=== PATIENT | male | born 1990 | race Caucasian/White ===

== ENCOUNTER 2021-03-24 16:22 | Inpatient (IN) | payer OTHER ==
[~2021-03-24] VITALS: Ht 185.4 cm; Wt 113.6 kg
[2021-03-24] MEDS ORDERED: PROP10TA73 PO (17:17)
[2021-03-24] MEDS ORDERED: ALPR0.5T PO (17:17)
[2021-03-24] MEDS ORDERED: CLON-465 PO (17:17)
[2021-03-24 17:29] LABS: COVID AG,FIA SOURCE NASOPHARYNGEAL
[2021-03-24 17:32] LABS: BASOPHILS % (AUTO) 0.4 % (0.0-2.0); HEMATOCRIT 40.1 % (41-53); HEMOGLOBIN 13.3 g/dL (13.5-17.5); LYMPHOCYTES # (AUTO) 1.4 K/uL (1.0-4.8); LYMPHOCYTES % (AUTO) 16.3 % (22.0-44.0); MEAN CORPUSCULAR HEMOGLOBIN 26.9 pg (26.0-34.0); MEAN CORPUSCULAR HGB CONC 33.3 G/dL (31.0-37.0); MEAN CORPUSCULAR VOLUME 81 fL (80-100); MONOCYTES # (AUTO) 0.7 K/uL (0.1-1.0); MONOCYTES % (AUTO) 7.9 % (2.0-9.0); NEUTROPHILS # (AUTO) 6.4 K/uL (1.8-7.7); NEUTROPHILS % (AUTO) 74.4 % (40.0-70.0); PLATELET COUNT (AUTO) 226 K/uL (150-450); RED BLOOD CELL COUNT(AUTO) 4.97 MIL/uL (4.50-5.90); RED CELL DISTRIBUTION WIDTH 16.2 % (11.5-14.5)
[2021-03-24 17:59] LABS: ANION GAP 10 mmol/L (8-16); CALCIUM, TOTAL 8.9 mg/dL (8.8-10.5); CARBON DIOXIDE 27 mmol/L (22-29); CHLORIDE 103 mmol/L (98-107); CREATININE 0.81 mg/dL (0.60-1.30); GLOMERULAR FILTR. RATE CALC > 60 mL/min (>60); GLUCOSE,RANDOM 116 mg/dL (70-110); POTASSIUM 3.8 mmol/L (3.5-5.1); SODIUM SERUM 140 mmol/L (136-145); UREA NITROGEN, BLOOD 9 mg/dL (7-18)
[2021-03-24] MEDS ORDERED: ZOLPIDEM TARTRATE 5 MG TABLET PO PRN (18:00)
[2021-03-24] MEDS ORDERED: MAGNESIUM HYDROXIDE SUSPENSION 30 ML UDCUP PO PRN (18:00)
[2021-03-24] MEDS ORDERED: ACETAMINOPHEN 325 MG TABLET PO PRN (18:00)
[2021-03-24] MEDS ORDERED: ONDANSETRON HCL 4 MG/2 ML VIAL IVP PRN (18:00)
[2021-03-24 18:04] LABS: ALANINE AMINOTRANSFERASE 38 U/L (12-78); ALBUMIN 3.4 g/dL (3.4-5.0); ALKALINE PHOSPHATASE 96 U/L (46-116); ASPARTATE AMINOTRANSFERASE 20 U/L (15-37); BILIRUBIN,TOTAL 0.5 mg/dL (0.1-1.0); TOTAL PROTEIN, SERUM 7.3 g/dL (6.4-8.2)
[2021-03-24 20:20] VITALS: BP 136/80
[2021-03-24] MEDS ORDERED: CLON0.3T PO (20:55)
[2021-03-24] MEDS ORDERED: ESCITALOPRAM OXALATE 10 MG TABLET PO SCH (21:00)
[2021-03-24] MEDS: LORazepam 2 MG TABLET PO PRN ×2 (21:18→23:23)
[2021-03-24 21:25] VITALS: BP 115/69
[2021-03-24 22:20] VITALS: BP 106/54
[2021-03-24 23:20] VITALS: BP 134/74
[2021-03-25 04:28] VITALS: BP 122/86
[2021-03-25] MEDS: LORazepam 2 MG TABLET PO PRN (06:14)
[2021-03-25] MEDS ORDERED: LORazepam 2 MG TABLET PO PRN (07:00)
[2021-03-25 08:15] VITALS: BP 148/93
[2021-03-25] MEDS ORDERED: LORazepam 2 MG TABLET PO SCH (09:00)
[2021-03-25 11:07] VITALS: BP 140/88
[2021-03-25] MEDS: CloNIDine HCL 0.1 MG TABLET PO SCH ×2 (11:35→20:34)
[2021-03-25 14:33] LABS: AMPHET/METH SCREEN,URINE NEGATIVE (NEGATIVE); BARBITURATE SCREEN, URINE NEGATIVE (NEGATIVE); BENZODIAZEPINES SCREEN,URINE NEGATIVE (NEGATIVE); CANNABINOID SCREEN,URINE NEGATIVE (NEGATIVE); COCAINE SCREEN,URINE NEGATIVE (NEGATIVE); METHADONE SCREEN, URINE NEGATIVE (NEGATIVE); OPIATE SCREEN,URINE NEGATIVE (NEGATIVE)
[2021-03-25 14:35] LABS: PHENCYCLIDINE SCREEN,URINE NEGATIVE (NEGATIVE)
[2021-03-25] MEDS ORDERED: DENTURE ADHESIVE 68 GM CREAM DT PRN (15:00)
[2021-03-25 20:14] VITALS: BP 134/76
[2021-03-25 20:15] VITALS: BP 134/76
[2021-03-25] MEDS: PROPRANOLOL HCL 10 MG TABLET PO SCH (20:34)
[2021-03-26 00:21] VITALS: BP 131/74
[2021-03-26 04:45] VITALS: BP 124/79
[2021-03-26 06:36] VITALS: BP 124/79
[2021-03-26 07:52] VITALS: BP 132/81
[2021-03-26] MEDS: PROPRANOLOL HCL 10 MG TABLET PO SCH ×2 (08:16→20:35)
[2021-03-26] MEDS: CloNIDine HCL 0.1 MG TABLET PO SCH ×2 (08:17→20:35)
[2021-03-26] MEDS ORDERED: CLON0.1T2 PO (09:57)
[2021-03-26] MEDS ORDERED: ACET-2247 PO (09:57)
[2021-03-26] MEDS ORDERED: PROP10TA73 PO (09:57)
[2021-03-26] MEDS ORDERED: MOM30 PO (09:58)
[2021-03-26] MEDS ORDERED: ONDA-104 PO (09:58)
[2021-03-26 15:32] VITALS: BP 123/84
[2021-03-26 19:47] VITALS: BP 133/76
[2021-03-27 04:10] VITALS: BP 142/87
[2021-03-27] MEDS ORDERED: LORazepam 1 MG TABLET PO PRN (07:00)
[2021-03-27 07:20] VITALS: BP 131/80
[2021-03-27] MEDS ORDERED: LORazepam 1 MG TABLET PO SCH (09:00)
[2021-03-28] MEDS ORDERED: LORazepam 1 MG TABLET PO PRN (07:00)
== END 2021-03-27 07:35 | DRG 897 ==
LOC: EMS 16:25 → 5S 18:24 → 6S 18:33
PROVIDERS: ADMIT Internal Medicine; ATTEND Internal Medicine
DX: F13.139 Sedative, hypnotic or anxiolytic abuse with withdrawal, unspecified (principal); E66.9 Obesity, unspecified; F41.1 Generalized anxiety disorder; Z20.822 Contact with and (suspected) exposure to COVID-19; I10 Essential (primary) hypertension; Z90.49 Acquired absence of other specified parts of digestive tract; Z87.442 Personal history of urinary calculi; Z68.33 Body mass index [BMI] 33.0-33.9, adult
CPT/HCPCS: 80053; 85025; 99285; G0480

== ENCOUNTER 2021-03-28 12:06 | Inpatient (IN) | payer OTHER ==
[~2021-03-28] VITALS: Ht 185.4 cm; Wt 119.0 kg
[~2021-03-28 12:06] MED LIST: ACET-2247 PO; CLON0.1T2 PO; MOM30 PO; PROP10TA73 PO
[2021-03-28 12:40] LABS: BASOPHILS % (AUTO) 0.6 % (0.0-2.0); EOSINOPHILS % (AUTO) 0.4 % (1.0-6.0); HEMATOCRIT 42.7 % (41-53); HEMOGLOBIN 14.5 g/dL (13.5-17.5); LYMPHOCYTES # (AUTO) 1.4 K/uL (1.0-4.8); LYMPHOCYTES % (AUTO) 14.7 % (22.0-44.0); MEAN CORPUSCULAR HEMOGLOBIN 27.1 pg (26.0-34.0); MEAN CORPUSCULAR VOLUME 80 fL (80-100); MONOCYTES # (AUTO) 0.9 K/uL (0.1-1.0); MONOCYTES % (AUTO) 9.3 % (2.0-9.0); NEUTROPHILS # (AUTO) 7.2 K/uL (1.8-7.7); PLATELET COUNT (AUTO) 306 K/uL (150-450); RED BLOOD CELL COUNT(AUTO) 5.35 MIL/uL (4.50-5.90); RED CELL DISTRIBUTION WIDTH 16.5 % (11.5-14.5)
[2021-03-28 12:48] LABS: ANION GAP 6 mmol/L (8-16); CALCIUM, TOTAL 9.3 mg/dL (8.8-10.5); CARBON DIOXIDE 27 mmol/L (22-29); CHLORIDE 108 mmol/L (98-107); CREATININE 0.87 mg/dL (0.60-1.30); GLOMERULAR FILTR. RATE CALC > 60 mL/min (>60); GLUCOSE,RANDOM 99 mg/dL (70-110); POTASSIUM 4.3 mmol/L (3.5-5.1); SODIUM SERUM 141 mmol/L (136-145); UREA NITROGEN, BLOOD 13 mg/dL (7-18)
[2021-03-28 12:50] LABS: INR 1.1 (0.9-1.1); PROTHROMBIN TIME 11.2 SEC (9.4-11.6)
[2021-03-28 12:53] LABS: COVID AG,FIA SOURCE NASOPHARYNGEAL
[2021-03-28 12:54] LABS: ALANINE AMINOTRANSFERASE 42 U/L (12-78); ALBUMIN 3.9 g/dL (3.4-5.0); ALKALINE PHOSPHATASE 102 U/L (46-116); ASPARTATE AMINOTRANSFERASE 20 U/L (15-37); BILIRUBIN,TOTAL 0.3 mg/dL (0.1-1.0); CREATINE KINASE, TOTAL ONLY 32 U/L (39-308); TOTAL PROTEIN, SERUM 8.3 g/dL (6.4-8.2)
[2021-03-28 12:59] LABS: B-TYPE NATRIURETIC PEPTIDE < 5 pg/mL (0-100)
[2021-03-28] MEDS ORDERED: ONDANSETRON HCL 4 MG/2 ML VIAL IVP ONE (13:15)
[2021-03-28] MEDS ORDERED: MAGNESIUM HYDROXIDE SUSPENSION 30 ML UDCUP PO PRN (13:15)
[2021-03-28] MEDS ORDERED: ZOLPIDEM TARTRATE 5 MG TABLET PO PRN (13:15)
[2021-03-28] MEDS: ASPIRIN 81 MG CHEWABLE TABLET PO SCH (13:19)
[2021-03-28] MEDS ORDERED: METOPROLOL TARTRATE 50 MG TABLET PO ONE (14:00)
[2021-03-28 14:20] LABS: CHOLESTEROL 210 mg/dL (131-200); HDL CHOLESTEROL 42 mg/dL (40-60); LDL CHOL (CALC.) 142 mg/dL (0-130); LIPASE 23 U/L (73-393); TRIGLYCERIDES 132 mg/dL (15-150)
[2021-03-28] MEDS: PROPRANOLOL HCL 10 MG TABLET PO SCH ×2 (15:00→21:15)
[2021-03-28 15:56] VITALS: BP 122/84
[2021-03-28] MEDS: HEPARIN SODIUM,PORCINE 5,000 UNITS/ML VIAL SQ SCH (16:00)
[2021-03-28] MEDS: NITROGLYCERIN 0.4 MG SUBLINGUAL TABLET #25 SL PRN ×3 (16:40→17:09)
[2021-03-28 16:51] VITALS: BP 129/57
[2021-03-28] MEDS: ACETAMINOPHEN 325 MG TABLET PO PRN (18:55)
[2021-03-28 19:56] VITALS: BP 125/83
[2021-03-28] MEDS: CloNIDine HCL 0.1 MG TABLET PO SCH (21:00)
[2021-03-28] MEDS: TraMADol HCL 50 MG TABLET PO PRN (21:15)
[2021-03-29] VITALS (7 sets, daily range): BP systolic 101–144; BP diastolic 57–97
[2021-03-29] MEDS: HEPARIN SODIUM,PORCINE 5,000 UNITS/ML VIAL SQ SCH ×3 (00:13→15:05)
[2021-03-29] MEDS: ACETAMINOPHEN 325 MG TABLET PO PRN ×5 (00:14→23:17)
[2021-03-29] MEDS: CloNIDine HCL 0.1 MG TABLET PO SCH ×3 (00:17→20:42)
[2021-03-29] MEDS: ONDANSETRON HCL 4 MG/2 ML VIAL IVP PRN ×3 (04:18→20:42)
[2021-03-29] MEDS: TraMADol HCL 50 MG TABLET PO PRN ×2 (06:48→20:42)
[2021-03-29] MEDS: FAMOTIDINE 20 MG TABLET PO SCH (08:38)
[2021-03-29] MEDS: ASPIRIN 81 MG CHEWABLE TABLET PO SCH (08:38)
[2021-03-29] MEDS: PROPRANOLOL HCL 10 MG TABLET PO SCH (08:39)
[2021-03-29 11:14] LABS: APPEARANCE,URINE CLEAR (CLEAR); GLUCOSE, URINE (UA) NEGATIVE (NEGATIVE); KETONES,URINE TRACE mg/dL (NEGATIVE); LEUKOCYTE ESTERASE ,URINE NEGATIVE (NEGATIVE); NITRATE,URINE NEGATIVE (NEGATIVE); OCCULT BLOOD,URINE NEGATIVE (NEGATIVE); PH,URINE 5.5 (5.0-8.0); PROTEIN,URINE POS 1+ (NEGATIVE); UROBILINOGEN,URINE 0.2 mg/dL (<=1.0)
[2021-03-29 11:19] LABS: BILIRUBIN,URINE PRELIM. POSITIVE (NEGATIVE)
[2021-03-29 11:20] LABS: AMPHET/METH SCREEN,URINE NEGATIVE (NEGATIVE); BARBITURATE SCREEN, URINE NEGATIVE (NEGATIVE); BENZODIAZEPINES SCREEN,URINE NEGATIVE (NEGATIVE); CANNABINOID SCREEN,URINE NEGATIVE (NEGATIVE); COCAINE SCREEN,URINE NEGATIVE (NEGATIVE); METHADONE SCREEN, URINE NEGATIVE (NEGATIVE); OPIATE SCREEN,URINE NEGATIVE (NEGATIVE); PHENCYCLIDINE SCREEN,URINE NEGATIVE (NEGATIVE)
[2021-03-29 11:40] LABS: BACTERIA,URINE None Seen /HPF (None Seen); CALCIUM OXALATE CRYSTALS,UR Few /LPF (None Seen); RBC,URINE None Seen /HPF (0-2); SQUAMOUS EPITHELIAL CELL,UR Few /LPF (None Seen); WBC,URINE 0-2 /HPF (0-5); YEAST,URINE None Seen /HPF (None Seen)
[2021-03-29] MEDS ORDERED: DENTURE ADHESIVE 68 GM CREAM DT PRN (13:30)
[2021-03-29] MEDS: ATORVASTATIN CALCIUM 20 MG TABLET PO SCH (15:05)
[2021-03-29] MEDS: PROPRANOLOL HCL 20 MG TABLET PO SCH (20:42)
[2021-03-29] MEDS: NITROGLYCERIN 0.4 MG SUBLINGUAL TABLET #25 SL PRN ×3 (22:31→22:57)
[2021-03-30] VITALS (9 sets, daily range): BP systolic 93–156; BP diastolic 55–100
[2021-03-30] MEDS ORDERED: NITROGLYCERIN 2% (1 GM=INCH) PACKET TP ONE (00:15)
[2021-03-30] MEDS: HEPARIN SODIUM,PORCINE 5,000 UNITS/ML VIAL SQ SCH ×3 (00:42→15:32)
[2021-03-30] MEDS: TraMADol HCL 50 MG TABLET PO PRN ×3 (04:36→20:40)
[2021-03-30] MEDS: ONDANSETRON HCL 4 MG/2 ML VIAL IVP PRN ×2 (08:38→17:29)
[2021-03-30] MEDS: PROPRANOLOL HCL 20 MG TABLET PO SCH ×3 (08:38→20:40)
[2021-03-30] MEDS: ASPIRIN 81 MG CHEWABLE TABLET PO SCH (08:38)
[2021-03-30] MEDS: CloNIDine HCL 0.1 MG TABLET PO SCH ×3 (08:38→20:40)
[2021-03-30] MEDS: ATORVASTATIN CALCIUM 20 MG TABLET PO SCH (08:38)
[2021-03-30] MEDS: FAMOTIDINE 20 MG TABLET PO SCH (08:38)
[2021-03-30] MEDS: NITROGLYCERIN 0.4 MG SUBLINGUAL TABLET #25 SL PRN ×3 (15:23→15:46)
[2021-03-30] MEDS ORDERED: SODIUM CHLORIDE 0.9% 100 ML ONE (16:11)
[2021-03-30] MEDS ORDERED: IOHEXOL 350 MG/ML 75 ML VIAL ONE (16:11)
[2021-03-30] MEDS ORDERED: HEPARIN SODIUM,PORCINE 5,000 UNITS/ML VIAL IVP PRN ×2 (17:45)
[2021-03-30] MEDS ORDERED: HEPARIN SODIUM,PORCINE 5,000 UNITS/ML VIAL IVP ONE (18:00)
[2021-03-30 18:05] LABS: BASOPHILS % (AUTO) 0.6 % (0.0-2.0); EOSINOPHILS % (AUTO) 1.5 % (1.0-6.0); HEMATOCRIT 42.5 % (41-53); HEMOGLOBIN 14.4 g/dL (13.5-17.5); LYMPHOCYTES # (AUTO) 1.5 K/uL (1.0-4.8); LYMPHOCYTES % (AUTO) 16.7 % (22.0-44.0); MEAN CORPUSCULAR HEMOGLOBIN 27.1 pg (26.0-34.0); MEAN CORPUSCULAR HGB CONC 33.9 G/dL (31.0-37.0); MEAN CORPUSCULAR VOLUME 80 fL (80-100); MONOCYTES # (AUTO) 0.7 K/uL (0.1-1.0); MONOCYTES % (AUTO) 7.4 % (2.0-9.0); NEUTROPHILS # (AUTO) 6.6 K/uL (1.8-7.7); NEUTROPHILS % (AUTO) 73.8 % (40.0-70.0); PLATELET COUNT (AUTO) 298 K/uL (150-450); RED BLOOD CELL COUNT(AUTO) 5.31 MIL/uL (4.50-5.90); RED CELL DISTRIBUTION WIDTH 16.3 % (11.5-14.5)
[2021-03-30 18:14] LABS: PROTHROMBIN TIME 10.6 SEC (9.4-11.6)
[2021-03-30] MEDS: ACETAMINOPHEN 325 MG TABLET PO PRN (18:27)
[2021-03-30] MEDS: HEPARIN SODIUM 25000 UNITS/D5W 250 ML IV PRN (18:51)
[2021-03-31] VITALS (7 sets, daily range): BP systolic 98–129; BP diastolic 47–78
[2021-03-31] MEDS: TraMADol HCL 50 MG TABLET PO PRN ×2 (08:20→21:58)
[2021-03-31] MEDS: ATORVASTATIN CALCIUM 20 MG TABLET PO SCH (08:20)
[2021-03-31] MEDS: PROPRANOLOL HCL 20 MG TABLET PO SCH ×2 (08:20→20:35)
[2021-03-31] MEDS: CloNIDine HCL 0.1 MG TABLET PO SCH ×4 (08:20→20:36)
[2021-03-31] MEDS: FAMOTIDINE 20 MG TABLET PO SCH (08:20)
[2021-03-31] MEDS: ASPIRIN 81 MG CHEWABLE TABLET PO SCH (08:20)
[2021-03-31] MEDS: HEPARIN SODIUM 25000 UNITS/D5W 250 ML IV PRN (08:44)
[2021-03-31] MEDS: ONDANSETRON HCL 4 MG/2 ML VIAL IVP PRN (09:16)
[2021-03-31 09:33] LABS: BASOPHILS % (AUTO) 0.8 % (0.0-2.0); EOSINOPHILS % (AUTO) 1.6 % (1.0-6.0); HEMATOCRIT 40.4 % (41-53); HEMOGLOBIN 13.6 g/dL (13.5-17.5); LYMPHOCYTES # (AUTO) 1.5 K/uL (1.0-4.8); LYMPHOCYTES % (AUTO) 19.8 % (22.0-44.0); MEAN CORPUSCULAR HEMOGLOBIN 27.2 pg (26.0-34.0); MEAN CORPUSCULAR HGB CONC 33.7 G/dL (31.0-37.0); MEAN CORPUSCULAR VOLUME 81 fL (80-100); MONOCYTES # (AUTO) 0.6 K/uL (0.1-1.0); MONOCYTES % (AUTO) 7.8 % (2.0-9.0); NEUTROPHILS # (AUTO) 5.3 K/uL (1.8-7.7); PLATELET COUNT (AUTO) 258 K/uL (150-450); RED BLOOD CELL COUNT(AUTO) 5.01 MIL/uL (4.50-5.90); RED CELL DISTRIBUTION WIDTH 16.3 % (11.5-14.5)
[2021-03-31] MEDS: ACETAMINOPHEN 325 MG TABLET PO PRN ×2 (14:28→20:36)
[2021-03-31 19:11] LABS: BASOPHILS % (AUTO) 0.8 % (0.0-2.0); EOSINOPHILS % (AUTO) 1.5 % (1.0-6.0); HEMATOCRIT 42.8 % (41-53); HEMOGLOBIN 14.4 g/dL (13.5-17.5); LYMPHOCYTES # (AUTO) 2.2 K/uL (1.0-4.8); LYMPHOCYTES % (AUTO) 22.2 % (22.0-44.0); MEAN CORPUSCULAR HEMOGLOBIN 27.1 pg (26.0-34.0); MEAN CORPUSCULAR HGB CONC 33.7 G/dL (31.0-37.0); MEAN CORPUSCULAR VOLUME 81 fL (80-100); MONOCYTES # (AUTO) 0.8 K/uL (0.1-1.0); MONOCYTES % (AUTO) 8.1 % (2.0-9.0); NEUTROPHILS # (AUTO) 6.6 K/uL (1.8-7.7); NEUTROPHILS % (AUTO) 67.4 % (40.0-70.0); PLATELET COUNT (AUTO) 281 K/uL (150-450); RED BLOOD CELL COUNT(AUTO) 5.31 MIL/uL (4.50-5.90)
[2021-03-31 19:20] LABS: ANION GAP 5 mmol/L (8-16); CALCIUM, TOTAL 9.3 mg/dL (8.8-10.5); CARBON DIOXIDE 30 mmol/L (22-29); CHLORIDE 101 mmol/L (98-107); CREATININE 0.83 mg/dL (0.60-1.30); GLOMERULAR FILTR. RATE CALC > 60 mL/min (>60); GLUCOSE,RANDOM 100 mg/dL (70-110); POTASSIUM 4.6 mmol/L (3.5-5.1); SODIUM SERUM 136 mmol/L (136-145); UREA NITROGEN, BLOOD 10 mg/dL (7-18)
[2021-03-31 19:24] LABS: PROTHROMBIN TIME 11.1 SEC (9.4-11.6)
[2021-03-31 19:26] LABS: ALANINE AMINOTRANSFERASE 40 U/L (12-78); ALBUMIN 3.9 g/dL (3.4-5.0); ALKALINE PHOSPHATASE 92 U/L (46-116); ASPARTATE AMINOTRANSFERASE 29 U/L (15-37); BILIRUBIN,TOTAL 0.3 mg/dL (0.1-1.0)
[2021-04-01] VITALS (7 sets, daily range): BP systolic 96–143; BP diastolic 55–79
[2021-04-01 03:47] LABS: GLUCOMETER DEV NAME(LOC) 5N.1C; GLUCOSE,POINT OF CARE 104 MG/DL (70-110)
[2021-04-01] MEDS: HEPARIN SODIUM 25000 UNITS/D5W 250 ML IV PRN ×2 (04:24→18:16)
[2021-04-01] MEDS: ASPIRIN 81 MG CHEWABLE TABLET PO SCH (08:41)
[2021-04-01] MEDS: PROPRANOLOL HCL 20 MG TABLET PO SCH ×2 (08:41→21:33)
[2021-04-01] MEDS: FAMOTIDINE 20 MG TABLET PO SCH (08:41)
[2021-04-01] MEDS: ATORVASTATIN CALCIUM 20 MG TABLET PO SCH (08:41)
[2021-04-01] MEDS: CloNIDine HCL 0.1 MG TABLET PO SCH ×2 (08:41→21:33)
[2021-04-01] MEDS: TraMADol HCL 50 MG TABLET PO PRN ×2 (08:45→16:50)
[2021-04-01] MEDS ORDERED: IBUPROFEN 600 MG TABLET PO PRN (10:45)
[2021-04-01] MEDS ORDERED: KETOROLAC TROMETHAMINE 15 MG/ML VIAL IVP ONE (10:45)
[2021-04-01] MEDS: APIXABAN 5 MG TABLET PO SCH (21:33)
[2021-04-02] VITALS (7 sets, daily range): BP systolic 100–137; BP diastolic 58–90
[2021-04-02] MEDS: FAMOTIDINE 20 MG TABLET PO SCH (08:21)
[2021-04-02] MEDS: ATORVASTATIN CALCIUM 20 MG TABLET PO SCH (08:21)
[2021-04-02] MEDS: ASPIRIN 81 MG CHEWABLE TABLET PO SCH (08:21)
[2021-04-02] MEDS: APIXABAN 5 MG TABLET PO SCH ×2 (08:21→20:44)
[2021-04-02] MEDS: PROPRANOLOL HCL 20 MG TABLET PO SCH ×2 (08:21→20:44)
[2021-04-02] MEDS: TraMADol HCL 50 MG TABLET PO PRN ×2 (08:22→17:51)
[2021-04-02] MEDS: ONDANSETRON HCL 4 MG/2 ML VIAL IVP PRN ×2 (08:22→17:54)
[2021-04-02] MEDS: CloNIDine HCL 0.1 MG TABLET PO SCH ×2 (12:19→20:44)
[2021-04-03 03:35] VITALS: BP 114/74
[2021-04-03] MEDS: TraMADol HCL 50 MG TABLET PO PRN (03:46)
[2021-04-03 07:39] VITALS: BP 118/95
[2021-04-03] MEDS: FAMOTIDINE 20 MG TABLET PO SCH (08:36)
[2021-04-03] MEDS: ASPIRIN 81 MG CHEWABLE TABLET PO SCH (08:36)
[2021-04-03] MEDS: ATORVASTATIN CALCIUM 20 MG TABLET PO SCH (08:36)
[2021-04-03] MEDS: APIXABAN 5 MG TABLET PO SCH (08:36)
[2021-04-03] MEDS: PROPRANOLOL HCL 20 MG TABLET PO SCH (08:37)
[2021-04-03] MEDS: CloNIDine HCL 0.1 MG TABLET PO SCH (08:37)
[2021-04-03] MEDS: ONDANSETRON HCL 4 MG/2 ML VIAL IVP PRN (08:38)
[2021-04-03 08:45] VITALS: BP 137/81
[2021-04-03 11:27] VITALS: BP 121/64
[2021-04-03] MEDS ORDERED: APIX5TAB PO ×2 (14:43→14:45)
[2021-04-03] MEDS ORDERED: ATOR20TA86 PO (14:46)
[2021-04-03] MEDS ORDERED: ASPI-1450 PO (14:46)
[2021-04-03] MEDS ORDERED: PROP20TA18 PO (14:47)
[2021-04-08] MEDS ORDERED: APIXABAN 2.5 MG TABLET PO SCH (21:00)
[2021-04-09] MEDS ORDERED: APIXABAN 2.5 MG TABLET PO SCH (09:00)
== END 2021-04-03 15:30 | DRG 176 ==
LOC: EMS 13:06 → 5S 13:43
PROVIDERS: ADMIT Internal Medicine; ATTEND Internal Medicine
DX: I26.99 Other pulmonary embolism without acute cor pulmonale (principal); F13.139 Sedative, hypnotic or anxiolytic abuse with withdrawal, unspecified; F41.9 Anxiety disorder, unspecified; E66.9 Obesity, unspecified; E78.5 Hyperlipidemia, unspecified; F43.10 Post-traumatic stress disorder, unspecified; Z20.822 Contact with and (suspected) exposure to COVID-19; F19.10 Other psychoactive substance abuse, uncomplicated; Z68.34 Body mass index [BMI] 34.0-34.9, adult; Z87.442 Personal history of urinary calculi; Z87.891 Personal history of nicotine dependence; Z98.1 Arthrodesis status; I25.2 Old myocardial infarction; Z90.49 Acquired absence of other specified parts of digestive tract
CPT/HCPCS: 70496; 70551; 71045; 71275; 80053; 80061; 81001; 82550; 82962; 83690; 83880; 84484; 85025; 85610; 85730; 87081; 93005; 93306; 93970; 99285; A9575; J1644; J1885; J2405; J7050; 36415-L1; 36415-TC; 70450; 70450-TC; C9803

== ENCOUNTER 2021-08-03 20:08 | Inpatient (IN) | payer OTHER ==
[~2021-08-03] VITALS: Ht 185.4 cm; Wt 93.2 kg
[~2021-08-03 20:08] MED LIST changes: +APIX5TAB PO; +ASPI-1450 PO; +ATOR20TA86 PO; -PROP10TA73 PO; +PROP20TA18 PO
[2021-08-03 20:50] LABS: BASOPHILS % (AUTO) 0.6 % (0.0-2.0); EOSINOPHILS % (AUTO) 1.9 % (1.0-6.0); HEMATOCRIT 39.7 % (41-53); HEMOGLOBIN 13.6 g/dL (13.5-17.5); LYMPHOCYTES # (AUTO) 1.7 K/uL (1.0-4.8); MEAN CORPUSCULAR HEMOGLOBIN 28.1 pg (26.0-34.0); MEAN CORPUSCULAR HGB CONC 34.2 G/dL (31.0-37.0); MEAN CORPUSCULAR VOLUME 82 fL (80-100); MONOCYTES # (AUTO) 0.7 K/uL (0.1-1.0); MONOCYTES % (AUTO) 8.7 % (2.0-9.0); NEUTROPHILS # (AUTO) 5.6 K/uL (1.8-7.7); NEUTROPHILS % (AUTO) 67.8 % (40.0-70.0); PLATELET COUNT (AUTO) 240 K/uL (150-450); RED BLOOD CELL COUNT(AUTO) 4.83 MIL/uL (4.50-5.90); RED CELL DISTRIBUTION WIDTH 13.9 % (11.5-14.5)
[2021-08-03 21:05] LABS: D-DIMER 0.19 mg/L FEU (0.00-0.50); PROTHROMBIN TIME 10.7 SEC (9.4-11.6)
[2021-08-03 21:09] LABS: ANION GAP 7 mmol/L (8-16); CARBON DIOXIDE 29 mmol/L (22-29); CHLORIDE 108 mmol/L (98-107); CREATININE 0.99 mg/dL (0.60-1.30); GLOMERULAR FILTR. RATE CALC > 60 mL/min (>60); GLUCOSE,RANDOM 108 mg/dL (70-110); POTASSIUM 4.2 mmol/L (3.5-5.1); SODIUM SERUM 144 mmol/L (136-145); UREA NITROGEN, BLOOD 17 mg/dL (7-18)
[2021-08-03 21:16] LABS: ALANINE AMINOTRANSFERASE 23 U/L (12-78); ALBUMIN 3.9 g/dL (3.4-5.0); ALKALINE PHOSPHATASE 90 U/L (46-116); ASPARTATE AMINOTRANSFERASE 8 U/L (15-37); BILIRUBIN,TOTAL 0.3 mg/dL (0.1-1.0); TOTAL PROTEIN, SERUM 7.5 g/dL (6.4-8.2)
[2021-08-03] MEDS ORDERED: ASPIRIN 325 MG TABLET PO ONE (21:45)
[2021-08-03] MEDS ORDERED: ONDANSETRON HCL 4 MG/2 ML VIAL IVP ONE (21:45)
[2021-08-03] MEDS ORDERED: 0.9% SODIUM CHLORIDE 10 ML SYRINGE IVP PRN (21:45)
[2021-08-03] MEDS ORDERED: ONDANSETRON HCL 4 MG/2 ML VIAL IVP PRN (21:45)
[2021-08-03] MEDS ORDERED: MORPHINE SULFATE 4 MG/ML SYRINGE IVP ONE (21:45)
[2021-08-03] MEDS ORDERED: MORPHINE SULFATE 4 MG/ML SYRINGE IVP PRN (21:45)
[2021-08-03] MEDS ORDERED: ACETAMINOPHEN 325 MG TABLET PO PRN (21:45)
[2021-08-03] MEDS ORDERED: SODIUM CHLORIDE 0.9% 100 ML ONE (22:28)
[2021-08-03] MEDS ORDERED: IOHEXOL 350 MG/ML 100 ML VIAL ONE (22:28)
[2021-08-03 22:32] LABS: COVID AG,FIA SOURCE NASAL SWAB
[2021-08-03] MEDS ORDERED: IOHEXOL 350 MG/ML 150 ML VIAL ONE (23:06)
[2021-08-03 23:18] VITALS: BP 124/84
[2021-08-04] VITALS (8 sets, daily range): BP systolic 95–136; BP diastolic 52–92
[2021-08-04] MEDS ORDERED: PNEUMOCOCCAL VACCINE POLYVALENT 0.5 ML VIAL [PPSV23] IM. ONE (01:45)
[2021-08-04] MEDS ORDERED: REGADENOSON 0.4 MG/5 ML PF SYRINGE IVP ONE (09:15)
[2021-08-04] MEDS ORDERED: SESTAMIBI TC99M/UD ISOTOPE 1 EA INJ INJ ONE ×2 (10:25→12:25)
[2021-08-04] MEDS: MORPHINE SULFATE 2 MG/ML SYRINGE IVP PRN ×2 (15:55→23:26)
[2021-08-04] MEDS: APIXABAN 5 MG TABLET PO SCH (20:22)
[2021-08-05 05:54] VITALS: BP 110/55
[2021-08-05 07:18] VITALS: BP 104/57
[2021-08-05] MEDS: MORPHINE SULFATE 2 MG/ML SYRINGE IVP PRN ×3 (09:29→20:49)
[2021-08-05] MEDS: APIXABAN 5 MG TABLET PO SCH ×2 (09:29→20:49)
[2021-08-05] MEDS: ATORVASTATIN CALCIUM 20 MG TABLET PO SCH (09:29)
[2021-08-05] MEDS: ASPIRIN 81 MG CHEWABLE TABLET PO SCH (09:29)
[2021-08-05 10:53] VITALS: BP 111/57
[2021-08-05 15:32] VITALS: BP 139/85
[2021-08-05 19:55] VITALS: BP 134/77
[2021-08-05] MEDS ORDERED: DENTURE ADHESIVE 68 GM CREAM DT PRN (23:15)
[2021-08-06] VITALS (7 sets, daily range): BP systolic 100–140; BP diastolic 49–80
[2021-08-06] MEDS: MORPHINE SULFATE 2 MG/ML SYRINGE IVP PRN ×5 (01:36→21:00)
[2021-08-06] MEDS: ATORVASTATIN CALCIUM 20 MG TABLET PO SCH (09:34)
[2021-08-06] MEDS: ASPIRIN 81 MG CHEWABLE TABLET PO SCH (09:34)
[2021-08-06] MEDS: APIXABAN 5 MG TABLET PO SCH ×2 (09:34→21:00)
[2021-08-07] VITALS (7 sets, daily range): BP systolic 101–161; BP diastolic 53–112
[2021-08-07] MEDS: MORPHINE SULFATE 2 MG/ML SYRINGE IVP PRN ×4 (03:08→20:36)
[2021-08-07] MEDS: APIXABAN 5 MG TABLET PO SCH ×2 (09:00→20:36)
[2021-08-07] MEDS: ASPIRIN 81 MG CHEWABLE TABLET PO SCH ×2 (09:00→13:43)
[2021-08-07] MEDS: ATORVASTATIN CALCIUM 20 MG TABLET PO SCH ×2 (09:00→13:34)
[2021-08-08] VITALS (17 sets, daily range): BP systolic 96–132; BP diastolic 58–80
[2021-08-08] MEDS: MORPHINE SULFATE 2 MG/ML SYRINGE IVP PRN ×5 (01:34→23:57)
[2021-08-08] MEDS: APIXABAN 5 MG TABLET PO SCH ×2 (07:24→20:57)
[2021-08-08] MEDS: ATORVASTATIN CALCIUM 20 MG TABLET PO SCH (07:54)
[2021-08-08] MEDS: ASPIRIN 81 MG CHEWABLE TABLET PO SCH (07:54)
[2021-08-08] MEDS ORDERED: HEPARIN SODIUM 1000 UNITS/NS 1,000 ML ONE (08:09)
[2021-08-08] MEDS ORDERED: IOHEXOL 300 MG/ML 100 ML VIAL ONE (08:09)
[2021-08-08] MEDS ORDERED: IOHEXOL 300 MG/ML 150 ML VIAL ONE (08:09)
[2021-08-08] MEDS ORDERED: IOHEXOL 300 MG/ML 50 ML VIAL ONE (08:09)
[2021-08-08] MEDS ORDERED: LIDOCAINE/PF 1% 30 ML VIAL ONE (08:09)
[2021-08-08] MEDS ORDERED: SODIUM BICARBONATE 50 MEQ/50 ML VIAL ONE (08:09)
[2021-08-08] MEDS ORDERED: NITROGLYCERIN 50 MG/D5% WATER 0 ML ONE (08:32)
[2021-08-08] MEDS ORDERED: VERAPAMIL HCL 2.5 MG/ML 2 ML VIAL ONE (08:32)
[2021-08-08] MEDS ORDERED: DiphenhydrAMINE HCL 50 MG/ML VIAL ONE (08:32)
[2021-08-08] MEDS ORDERED: FentaNYL CITRATE PF 100 MCG/2 ML VIAL ONE (08:33)
[2021-08-08] MEDS ORDERED: MIDAZOLAM HCL 2 MG/2 ML VIAL ONE (08:33)
[2021-08-08] MEDS ORDERED: SODIUM CHLORIDE 0.9% 500 ML IV ONE (09:30)
[2021-08-08] MEDS ORDERED: IOHEXOL 300 MG/ML 150 ML VIAL IARTER ONE (09:30)
[2021-08-08] MEDS ORDERED: MIDAZOLAM HCL 2 MG/2 ML VIAL IVP ONE (09:30)
[2021-08-08] MEDS ORDERED: HEPARIN SODIUM 1000 UNITS/NS 1,000 ML IARTER ONE (09:30)
[2021-08-08] MEDS ORDERED: FentaNYL CITRATE PF 100 MCG/2 ML VIAL IVP ONE (09:30)
[2021-08-08] MEDS ORDERED: LIDOCAINE 1% 30 ML/SOD BICARB 8.4% 4 ML SQ ONE (09:30)
[2021-08-09 03:45] VITALS: BP 119/68
[2021-08-09] MEDS: MORPHINE SULFATE 2 MG/ML SYRINGE IVP PRN ×5 (03:59→22:07)
[2021-08-09 07:50] VITALS: BP 106/69
[2021-08-09] MEDS: APIXABAN 5 MG TABLET PO SCH ×2 (08:09→19:42)
[2021-08-09] MEDS: ATORVASTATIN CALCIUM 20 MG TABLET PO SCH (08:09)
[2021-08-09] MEDS: ASPIRIN 81 MG CHEWABLE TABLET PO SCH (08:09)
[2021-08-09 11:30] VITALS: BP 129/76
[2021-08-09 16:00] VITALS: BP 123/83
[2021-08-09 20:00] VITALS: BP 106/73
[2021-08-10] VITALS: BP 115/74
[2021-08-10] MEDS: MORPHINE SULFATE 2 MG/ML SYRINGE IVP PRN ×3 (03:17→13:13)
[2021-08-10 04:00] VITALS: BP 122/72
[2021-08-10 07:28] VITALS: BP 140/90
[2021-08-10] MEDS: ASPIRIN 81 MG CHEWABLE TABLET PO SCH (08:20)
[2021-08-10] MEDS: APIXABAN 5 MG TABLET PO SCH (08:20)
[2021-08-10] MEDS: ATORVASTATIN CALCIUM 20 MG TABLET PO SCH (08:20)
[2021-08-10 11:30] VITALS: BP 111/72
== END 2021-08-10 15:00 | DRG 287 ==
LOC: EMS 20:10 → 5S 22:00
PROVIDERS: ADMIT Hospitalist; ATTEND Hospitalist
PROC: 4A023N7 Measurement of Cardiac Sampling and Pressure, Left Heart, Percutaneous Approach (ICD-10-PCS; principal; 2021-08-08)
PROC: B2111ZZ Fluoroscopy of Multiple Coronary Arteries using Low Osmolar Contrast (ICD-10-PCS; 2021-08-08)
PROC: B2151ZZ Fluoroscopy of Left Heart using Low Osmolar Contrast (ICD-10-PCS; 2021-08-08)
PROC: B41F1ZZ Fluoroscopy of Right Lower Extremity Arteries using Low Osmolar Contrast (ICD-10-PCS; 2021-08-08)
DX: I24.8 Other forms of acute ischemic heart disease (principal); I10 Essential (primary) hypertension; E78.5 Hyperlipidemia, unspecified; F41.9 Anxiety disorder, unspecified; Z20.822 Contact with and (suspected) exposure to COVID-19; Z87.891 Personal history of nicotine dependence; Z86.711 Personal history of pulmonary embolism; Z79.01 Long term (current) use of anticoagulants; Z82.41 Family history of sudden cardiac death; Z82.49 Family history of ischemic heart disease and other diseases of the circulatory system; Z87.442 Personal history of urinary calculi; Z98.1 Arthrodesis status; Z91.040 Latex allergy status; I25.2 Old myocardial infarction; Z79.82 Long term (current) use of aspirin
CPT/HCPCS: 71045; 71275; 76881; 78452; 80053; 84484; 85025; 85379; 85610; 85730; 93005; 93017; 93306; 99291; A9500; J1200; J1644; J2250; J2270; J2405; J3010; J3490; J7050; Q9967; 36415-L1; 36415-TC; Z7610

== ENCOUNTER 2021-11-12 17:21 | Emergency (ER) | payer OTHER ==
[~2021-11-12] VITALS: Ht 193 cm; Wt 106.8 kg
[~2021-11-12 17:21] MED LIST changes: -ACET-2247 PO; -CLON0.1T2 PO; -MOM30 PO
[2021-11-12] MEDS ORDERED: ISOS10TA16 PO (17:43)
[2021-11-12] MEDS ORDERED: CITA10TA99 PO (17:43)
[2021-11-12 18:09] LABS: BASOPHILS % (AUTO) 1.1 % (0.0-2.0); EOSINOPHILS % (AUTO) 1.8 % (1.0-6.0); HEMATOCRIT 37.8 % (41-53); HEMOGLOBIN 13.2 g/dL (13.5-17.5); LYMPHOCYTES # (AUTO) 1.4 K/uL (1.0-4.8); LYMPHOCYTES % (AUTO) 20.7 % (22.0-44.0); MEAN CORPUSCULAR HEMOGLOBIN 28.5 pg (26.0-34.0); MEAN CORPUSCULAR VOLUME 82 fL (80-100); MONOCYTES # (AUTO) 0.5 K/uL (0.1-1.0); MONOCYTES % (AUTO) 7.5 % (2.0-9.0); NEUTROPHILS # (AUTO) 4.8 K/uL (1.8-7.7); NEUTROPHILS % (AUTO) 68.9 % (40.0-70.0); PLATELET COUNT (AUTO) 247 K/uL (150-450); RED BLOOD CELL COUNT(AUTO) 4.63 MIL/uL (4.50-5.90); RED CELL DISTRIBUTION WIDTH 13.5 % (11.5-14.5)
[2021-11-12] MEDS ORDERED: ONDANSETRON HCL 4 MG/2 ML VIAL IVP ONE (18:15)
[2021-11-12] MEDS ORDERED: FAMOTIDINE 10 MG/ML 2 ML VIAL IVP ONE (18:15)
[2021-11-12 18:26] LABS: ANION GAP 10 mmol/L (8-16); CALCIUM, TOTAL 8.7 mg/dL (8.8-10.5); CARBON DIOXIDE 28 mmol/L (22-29); CHLORIDE 106 mmol/L (98-107); CREATININE 0.93 mg/dL (0.60-1.30); GLOMERULAR FILTR. RATE CALC > 60 mL/min (>60); GLUCOSE,RANDOM 116 mg/dL (70-110); POTASSIUM 3.9 mmol/L (3.5-5.1); SODIUM SERUM 144 mmol/L (136-145); UREA NITROGEN, BLOOD 8 mg/dL (7-18)
[2021-11-12 18:31] LABS: ALANINE AMINOTRANSFERASE 23 U/L (12-78); ALKALINE PHOSPHATASE 86 U/L (46-116); ASPARTATE AMINOTRANSFERASE 19 U/L (15-37); B-TYPE NATRIURETIC PEPTIDE 7 pg/mL (0-100); BILIRUBIN,TOTAL 0.3 mg/dL (0.1-1.0); LIPASE 46 U/L (73-393); TOTAL PROTEIN, SERUM 7.4 g/dL (6.4-8.2)
[2021-11-12 18:58] LABS: APPEARANCE,URINE CLEAR (CLEAR); BILIRUBIN,URINE NEGATIVE (NEGATIVE); GLUCOSE, URINE (UA) NEGATIVE (NEGATIVE); KETONES,URINE NEGATIVE (NEGATIVE); LEUKOCYTE ESTERASE ,URINE NEGATIVE (NEGATIVE); NITRATE,URINE NEGATIVE (NEGATIVE); OCCULT BLOOD,URINE NEGATIVE (NEGATIVE); PROTEIN,URINE NEGATIVE (NEGATIVE); UROBILINOGEN,URINE 0.2 mg/dL (<=1.0)
[2021-11-12 19:03] LABS: AMPHET/METH SCREEN,URINE NEGATIVE (NEGATIVE); BARBITURATE SCREEN, URINE NEGATIVE (NEGATIVE); BENZODIAZEPINES SCREEN,URINE NEGATIVE (NEGATIVE); CANNABINOID SCREEN,URINE NEGATIVE (NEGATIVE); COCAINE SCREEN,URINE NEGATIVE (NEGATIVE); METHADONE SCREEN, URINE NEGATIVE (NEGATIVE); OPIATE SCREEN,URINE NEGATIVE (NEGATIVE); PHENCYCLIDINE SCREEN,URINE NEGATIVE (NEGATIVE)
[2021-11-12 19:06] LABS: BACTERIA,URINE None Seen /HPF (None Seen); RBC,URINE None Seen /HPF (0-2); SQUAMOUS EPITHELIAL CELL,UR None Seen /LPF (None Seen); WBC,URINE None Seen /HPF (0-5)
[2021-11-12 23:22] VITALS: BP 124/79
== END 2021-11-12 23:56 | disposition home or self-care (01) ==
LOC: EMS 17:23
DX: R07.9 Chest pain, unspecified (principal); I48.91 Unspecified atrial fibrillation; F41.9 Anxiety disorder, unspecified; I10 Essential (primary) hypertension; I25.2 Old myocardial infarction; F17.200 Nicotine dependence, unspecified, uncomplicated; F13.10 Sedative, hypnotic or anxiolytic abuse, uncomplicated; Z88.6 Allergy status to analgesic agent; Z91.040 Latex allergy status; Z91.013 Allergy to seafood
CPT/HCPCS: 36415; 71045; 71275; 80053; 80307; 81001; 83690; 83880; 84484; 85025; 85379; 93005; 96374; 96375; 99285; J2405; J3490

== ENCOUNTER 2021-11-29 12:20 | Emergency (ER) | payer OTHER ==
[~2021-11-29] VITALS: Ht 185.4 cm; Wt 118.2 kg
[~2021-11-29 12:20] MED LIST changes: +CITA10TA99 PO; +ISOS10TA16 PO
[2021-11-29 13:19] LABS: BASOPHILS % (AUTO) 0.8 % (0.0-2.0); EOSINOPHILS % (AUTO) 1.5 % (1.0-6.0); HEMATOCRIT 38.4 % (41-53); HEMOGLOBIN 13.2 g/dL (13.5-17.5); LYMPHOCYTES % (AUTO) 12.1 % (22.0-44.0); MEAN CORPUSCULAR HEMOGLOBIN 28.1 pg (26.0-34.0); MEAN CORPUSCULAR HGB CONC 34.3 G/dL (31.0-37.0); MEAN CORPUSCULAR VOLUME 82 fL (80-100); MONOCYTES # (AUTO) 0.6 K/uL (0.1-1.0); MONOCYTES % (AUTO) 7.4 % (2.0-9.0); NEUTROPHILS # (AUTO) 6.5 K/uL (1.8-7.7); NEUTROPHILS % (AUTO) 78.2 % (40.0-70.0); PLATELET COUNT (AUTO) 206 K/uL (150-450); RED BLOOD CELL COUNT(AUTO) 4.69 MIL/uL (4.50-5.90); RED CELL DISTRIBUTION WIDTH 13.2 % (11.5-14.5)
[2021-11-29 13:30] LABS: ANION GAP 6 mmol/L (8-16); CALCIUM, TOTAL 8.7 mg/dL (8.8-10.5); CARBON DIOXIDE 31 mmol/L (22-29); CHLORIDE 102 mmol/L (98-107); CREATININE 0.86 mg/dL (0.60-1.30); GLOMERULAR FILTR. RATE CALC > 60 mL/min (>60); GLUCOSE,RANDOM 92 mg/dL (70-110); POTASSIUM 4.7 mmol/L (3.5-5.1); SODIUM SERUM 139 mmol/L (136-145); UREA NITROGEN, BLOOD 15 mg/dL (7-18)
[2021-11-29 13:42] LABS: ALANINE AMINOTRANSFERASE 24 U/L (12-78); ALBUMIN 3.9 g/dL (3.4-5.0); ALKALINE PHOSPHATASE 79 U/L (46-116); ASPARTATE AMINOTRANSFERASE 22 U/L (15-37); BILIRUBIN,TOTAL 0.3 mg/dL (0.1-1.0); TOTAL PROTEIN, SERUM 7.5 g/dL (6.4-8.2)
[2021-11-29 15:16] VITALS: BP 119/84
[2021-12-07] MEDS ORDERED: CITA10TA99 PO ×2 (11:25→11:26)
[2021-12-07] MEDS ORDERED: APIX5TAB PO (11:27)
[2021-12-07] MEDS ORDERED: METO5TAB87 PO (11:31)
[2021-12-07] MEDS ORDERED: METO-391 PO (11:40)
== END 2021-11-29 15:57 ==
LOC: EMS 12:22
DX: T40.601A Poisoning by unspecified narcotics, accidental (unintentional), initial encounter (principal); I48.91 Unspecified atrial fibrillation; F41.9 Anxiety disorder, unspecified; I10 Essential (primary) hypertension; F13.90 Sedative, hypnotic, or anxiolytic use, unspecified, uncomplicated; Z88.5 Allergy status to narcotic agent; Z91.013 Allergy to seafood; Y92.89 Other specified places as the place of occurrence of the external cause
CPT/HCPCS: 71045; 80053; 84484; 85025; 93005; 99285; 36415-L1; 36415-TC

== ENCOUNTER 2021-12-10 16:22 | Inpatient (IN) | payer OTHER ==
[~2021-12-10] VITALS: Ht 185.4 cm; Wt 116.2 kg
[~2021-12-10 16:22] MED LIST changes: -ASPI-1450 PO; -ISOS10TA16 PO; +METO-391 PO; +METO5TAB87 PO; -PROP20TA18 PO
[2021-12-10 18:42] LABS: BASOPHILS % (AUTO) 0.6 % (0.0-2.0); EOSINOPHILS % (AUTO) 1.1 % (1.0-6.0); LYMPHOCYTES # (AUTO) 1.1 K/uL (1.0-4.8); LYMPHOCYTES % (AUTO) 15.1 % (22.0-44.0); MEAN CORPUSCULAR HEMOGLOBIN 27.9 pg (26.0-34.0); MEAN CORPUSCULAR HGB CONC 34.3 G/dL (31.0-37.0); MEAN CORPUSCULAR VOLUME 81 fL (80-100); MONOCYTES # (AUTO) 0.5 K/uL (0.1-1.0); MONOCYTES % (AUTO) 6.5 % (2.0-9.0); NEUTROPHILS # (AUTO) 5.5 K/uL (1.8-7.7); NEUTROPHILS % (AUTO) 76.7 % (40.0-70.0); PLATELET COUNT (AUTO) 261 K/uL (150-450); RED BLOOD CELL COUNT(AUTO) 5.03 MIL/uL (4.50-5.90); RED CELL DISTRIBUTION WIDTH 13.3 % (11.5-14.5)
[2021-12-10 18:45] LABS: ANION GAP 6 mmol/L (8-16); CARBON DIOXIDE 30 mmol/L (22-29); CHLORIDE 101 mmol/L (98-107); CREATININE 0.95 mg/dL (0.60-1.30); GLOMERULAR FILTR. RATE CALC > 60 mL/min (>60); GLUCOSE,RANDOM 102 mg/dL (70-110); POTASSIUM 4.3 mmol/L (3.5-5.1); SODIUM SERUM 137 mmol/L (136-145); UREA NITROGEN, BLOOD 15 mg/dL (7-18)
[2021-12-10 18:46] LABS: COVID AG,FIA SOURCE NASOPHARYNGEAL
[2021-12-10 18:50] LABS: ALANINE AMINOTRANSFERASE 24 U/L (12-78); ALBUMIN 4.1 g/dL (3.4-5.0); ALKALINE PHOSPHATASE 99 U/L (46-116); ASPARTATE AMINOTRANSFERASE 19 U/L (15-37); BILIRUBIN,TOTAL 0.4 mg/dL (0.1-1.0); TOTAL PROTEIN, SERUM 8.4 g/dL (6.4-8.2)
[2021-12-10 18:53] LABS: D-DIMER 0.32 mg/L FEU (0.00-0.50)
[2021-12-10] MEDS ORDERED: IPRATROPIUM BROMIDE 0.5 MG/2.5 ML NEB SOLUTION NEB PRN ×2 (19:00→21:45)
[2021-12-10] MEDS ORDERED: ALBUTEROL SULFATE 2.5 MG/0.5 ML NEB SOLUTION NEB PRN ×2 (19:00→21:45)
[2021-12-10] MEDS ORDERED: MAGNESIUM HYDROXIDE SUSPENSION 30 ML UDCUP PO PRN ×2 (19:00→21:45)
[2021-12-10] MEDS ORDERED: BISACODYL 10 MG RECTAL RECTAL SUPPOSITORY PR PRN ×2 (19:00→21:45)
[2021-12-10] MEDS ORDERED: ACETAMINOPHEN 325 MG TABLET PO PRN ×2 (19:00→21:45)
[2021-12-10 19:04] LABS: B-TYPE NATRIURETIC PEPTIDE 7 pg/mL (0-100)
[2021-12-10] MEDS: LIDOCAINE 5% TRANSDERMAL PATCH TD SCH (19:21)
[2021-12-10 20:31] LABS: APPEARANCE,URINE CLEAR (CLEAR); BILIRUBIN,URINE NEGATIVE (NEGATIVE); GLUCOSE, URINE (UA) NEGATIVE (NEGATIVE); KETONES,URINE NEGATIVE (NEGATIVE); LEUKOCYTE ESTERASE ,URINE NEGATIVE (NEGATIVE); NITRATE,URINE NEGATIVE (NEGATIVE); OCCULT BLOOD,URINE NEGATIVE (NEGATIVE); PROTEIN,URINE NEGATIVE (NEGATIVE); SPECIFIC GRAVITIY, URINE 1.008 (1.003-1.030); UROBILINOGEN,URINE <=1.0 mg/dL (<=1.0)
[2021-12-10 20:35] LABS: BACTERIA,URINE None Seen /HPF (None Seen); RBC,URINE None Seen /HPF (0-2); SQUAMOUS EPITHELIAL CELL,UR None Seen /LPF (None Seen); WBC,URINE None Seen /HPF (0-5)
[2021-12-10 21:15] VITALS: BP 116/70
[2021-12-10] MEDS: APIXABAN 5 MG TABLET PO SCH (21:41)
[2021-12-10] MEDS: ZOLPIDEM TARTRATE 5 MG TABLET PO PRN (21:41)
[2021-12-10] MEDS: LANSOPRAZOLE 30 MG CAPSULE PO SCH (21:41)
[2021-12-10] MEDS: FLECAINIDE ACETATE 50 MG TABLET PO SCH (21:41)
[2021-12-10] MEDS: OxyCODONE HCL/ACETAMINOPHEN 5-325 MG TABLET PO PRN (21:51)
[2021-12-10] MEDS: MORPHINE SULFATE 2 MG/ML SYRINGE IVP PRN (22:54)
[2021-12-11] VITALS (7 sets, daily range): BP systolic 107–144; BP diastolic 56–77
[2021-12-11] MEDS: OxyCODONE HCL/ACETAMINOPHEN 5-325 MG TABLET PO PRN ×2 (04:22→23:26)
[2021-12-11] MEDS: MORPHINE SULFATE 2 MG/ML SYRINGE IVP PRN ×4 (05:15→20:14)
[2021-12-11] MEDS: METOPROLOL SUCCINATE 25 MG ER TABLET PO SCH (08:25)
[2021-12-11] MEDS: FLECAINIDE ACETATE 50 MG TABLET PO SCH (08:25)
[2021-12-11] MEDS: CITALOPRAM HYDROBROMIDE 10 MG TABLET PO SCH (08:25)
[2021-12-11] MEDS: LANSOPRAZOLE 30 MG CAPSULE PO SCH ×2 (08:25→20:13)
[2021-12-11] MEDS: APIXABAN 5 MG TABLET PO SCH ×2 (08:25→20:13)
[2021-12-11] MEDS: ATORVASTATIN CALCIUM 20 MG TABLET PO SCH (08:26)
[2021-12-11] MEDS: LIDOCAINE 5% TRANSDERMAL PATCH TD SCH (19:00)
[2021-12-11] MEDS: ZOLPIDEM TARTRATE 5 MG TABLET PO PRN (23:22)
[2021-12-12] MEDS: MORPHINE SULFATE 2 MG/ML SYRINGE IVP PRN ×5 (01:23→20:05)
[2021-12-12 03:47] VITALS: BP 102/58
[2021-12-12] MEDS: OxyCODONE HCL/ACETAMINOPHEN 5-325 MG TABLET PO PRN ×3 (06:28→23:39)
[2021-12-12 09:14] VITALS: BP 102/77
[2021-12-12] MEDS: METOPROLOL SUCCINATE 25 MG ER TABLET PO SCH (10:03)
[2021-12-12] MEDS: ATORVASTATIN CALCIUM 20 MG TABLET PO SCH (10:03)
[2021-12-12] MEDS: CITALOPRAM HYDROBROMIDE 10 MG TABLET PO SCH (10:03)
[2021-12-12] MEDS: APIXABAN 5 MG TABLET PO SCH ×2 (10:03→20:04)
[2021-12-12] MEDS: LANSOPRAZOLE 30 MG CAPSULE PO SCH ×2 (10:03→20:03)
[2021-12-12] MEDS ORDERED: DENTURE ADHESIVE 68 GM CREAM DT PRN (13:30)
[2021-12-12 13:42] VITALS: BP 121/77
[2021-12-12] MEDS ORDERED: VIT E ACET/GLY/DIMETH/WATER 236 ML LOTION TP PRN (15:15)
[2021-12-12 15:57] VITALS: BP 107/75
[2021-12-12] MEDS: ZOLPIDEM TARTRATE 5 MG TABLET PO PRN (20:04)
[2021-12-12] MEDS: LIDOCAINE 5% TRANSDERMAL PATCH TD SCH (20:05)
[2021-12-12 20:21] VITALS: BP 126/50
[2021-12-12] MEDS: MINERAL OIL/PETROLATUM 120 GM CREAM TP SCH (23:39)
[2021-12-13 01:03] VITALS: BP 100/57
[2021-12-13] MEDS: MORPHINE SULFATE 2 MG/ML SYRINGE IVP PRN ×5 (02:19→20:44)
[2021-12-13 05:00] VITALS: BP 117/70
[2021-12-13] MEDS: LANSOPRAZOLE 30 MG CAPSULE PO SCH ×2 (08:25→20:44)
[2021-12-13] MEDS: APIXABAN 5 MG TABLET PO SCH ×2 (08:25→20:44)
[2021-12-13] MEDS: METOPROLOL SUCCINATE 25 MG ER TABLET PO SCH (08:25)
[2021-12-13] MEDS: CITALOPRAM HYDROBROMIDE 10 MG TABLET PO SCH (08:25)
[2021-12-13] MEDS: ATORVASTATIN CALCIUM 20 MG TABLET PO SCH (08:25)
[2021-12-13] MEDS: MINERAL OIL/PETROLATUM 120 GM CREAM TP SCH ×2 (08:26→20:45)
[2021-12-13 09:03] VITALS: BP 124/99
[2021-12-13 12:28] VITALS: BP 122/60
[2021-12-13 19:45] VITALS: BP 119/72
[2021-12-13] MEDS: ZOLPIDEM TARTRATE 5 MG TABLET PO PRN (20:44)
[2021-12-13] MEDS: LIDOCAINE 5% TRANSDERMAL PATCH TD SCH (20:45)
[2021-12-13 23:35] VITALS: BP 121/68
[2021-12-14] MEDS: MORPHINE SULFATE 2 MG/ML SYRINGE IVP PRN ×5 (02:21→20:08)
[2021-12-14 03:30] VITALS: BP 100/56
[2021-12-14] MEDS: METOPROLOL SUCCINATE 25 MG ER TABLET PO SCH (08:29)
[2021-12-14] MEDS: MINERAL OIL/PETROLATUM 120 GM CREAM TP SCH ×2 (08:29→20:13)
[2021-12-14] MEDS: CITALOPRAM HYDROBROMIDE 10 MG TABLET PO SCH (08:29)
[2021-12-14] MEDS: ATORVASTATIN CALCIUM 20 MG TABLET PO SCH (08:29)
[2021-12-14] MEDS: APIXABAN 5 MG TABLET PO SCH ×2 (08:29→20:09)
[2021-12-14] MEDS: LANSOPRAZOLE 30 MG CAPSULE PO SCH ×2 (08:29→20:09)
[2021-12-14 09:18] VITALS: BP 137/79
[2021-12-14 14:38] VITALS: BP 119/71
[2021-12-14 16:45] VITALS: BP 102/75
[2021-12-14] MEDS: LIDOCAINE 5% TRANSDERMAL PATCH TD SCH (20:01)
[2021-12-14] MEDS: ZOLPIDEM TARTRATE 5 MG TABLET PO PRN (20:09)
[2021-12-15] VITALS: BP 106/63
[2021-12-15] MEDS: MORPHINE SULFATE 2 MG/ML SYRINGE IVP PRN ×4 (00:09→20:12)
[2021-12-15 04:00] VITALS: BP 100/61
[2021-12-15 07:34] VITALS: BP 102/56
[2021-12-15] MEDS: ATORVASTATIN CALCIUM 20 MG TABLET PO SCH (08:35)
[2021-12-15] MEDS: LANSOPRAZOLE 30 MG CAPSULE PO SCH ×2 (08:35→20:13)
[2021-12-15] MEDS: CITALOPRAM HYDROBROMIDE 10 MG TABLET PO SCH (08:36)
[2021-12-15] MEDS: APIXABAN 5 MG TABLET PO SCH ×2 (08:36→20:13)
[2021-12-15] MEDS: MINERAL OIL/PETROLATUM 120 GM CREAM TP SCH ×2 (08:36→20:14)
[2021-12-15] MEDS: METOPROLOL SUCCINATE 25 MG ER TABLET PO SCH ×2 (08:36→20:13)
[2021-12-15 11:08] VITALS: BP 120/78
[2021-12-15 15:46] VITALS: BP 123/73
[2021-12-15] MEDS: LIDOCAINE 5% TRANSDERMAL PATCH TD SCH (20:13)
[2021-12-15] MEDS: ZOLPIDEM TARTRATE 5 MG TABLET PO PRN (20:13)
[2021-12-15 21:41] VITALS: BP 114/79
[2021-12-16] MEDS: MORPHINE SULFATE 2 MG/ML SYRINGE IVP PRN ×5 (01:00→23:59)
[2021-12-16 02:00] VITALS: BP 129/58
[2021-12-16 05:23] VITALS: BP 127/71
[2021-12-16 07:34] VITALS: BP 130/90
[2021-12-16] MEDS: LANSOPRAZOLE 30 MG CAPSULE PO SCH ×2 (09:28→20:04)
[2021-12-16] MEDS: ATORVASTATIN CALCIUM 20 MG TABLET PO SCH (09:29)
[2021-12-16] MEDS: APIXABAN 5 MG TABLET PO SCH ×2 (09:29→20:04)
[2021-12-16] MEDS: CITALOPRAM HYDROBROMIDE 10 MG TABLET PO SCH (09:29)
[2021-12-16] MEDS: MINERAL OIL/PETROLATUM 120 GM CREAM TP SCH ×2 (09:29→20:17)
[2021-12-16] MEDS: METOPROLOL SUCCINATE 25 MG ER TABLET PO SCH ×2 (09:29→20:05)
[2021-12-16 11:40] VITALS: BP 129/83
[2021-12-16 15:52] VITALS: BP 108/54
[2021-12-16 20:00] VITALS: BP 118/69
[2021-12-16] MEDS: LIDOCAINE 5% TRANSDERMAL PATCH TD SCH (20:04)
[2021-12-16] MEDS: ZOLPIDEM TARTRATE 5 MG TABLET PO PRN (20:05)
[2021-12-17] VITALS (7 sets, daily range): BP systolic 101–133; BP diastolic 56–74
[2021-12-17] MEDS: MORPHINE SULFATE 2 MG/ML SYRINGE IVP PRN ×4 (04:03→20:39)
[2021-12-17] MEDS: CITALOPRAM HYDROBROMIDE 10 MG TABLET PO SCH (08:26)
[2021-12-17] MEDS: LANSOPRAZOLE 30 MG CAPSULE PO SCH ×2 (08:27→20:38)
[2021-12-17] MEDS: MINERAL OIL/PETROLATUM 120 GM CREAM TP SCH ×2 (08:27→22:24)
[2021-12-17] MEDS: METOPROLOL SUCCINATE 25 MG ER TABLET PO SCH ×2 (08:27→20:38)
[2021-12-17] MEDS: APIXABAN 5 MG TABLET PO SCH ×2 (08:27→20:38)
[2021-12-17] MEDS: ATORVASTATIN CALCIUM 20 MG TABLET PO SCH (08:27)
[2021-12-17] MEDS: LIDOCAINE 5% TRANSDERMAL PATCH TD SCH (20:38)
[2021-12-17] MEDS: ZOLPIDEM TARTRATE 5 MG TABLET PO PRN (20:46)
[2021-12-18] MEDS: MORPHINE SULFATE 2 MG/ML SYRINGE IVP PRN ×6 (00:53→23:12)
[2021-12-18 04:46] VITALS: BP 101/61
[2021-12-18 07:55] VITALS: BP 136/57
[2021-12-18] MEDS: LANSOPRAZOLE 30 MG CAPSULE PO SCH ×2 (08:58→22:11)
[2021-12-18] MEDS: METOPROLOL SUCCINATE 25 MG ER TABLET PO SCH ×3 (08:58→22:13)
[2021-12-18] MEDS: APIXABAN 5 MG TABLET PO SCH ×2 (08:58→22:11)
[2021-12-18] MEDS: ATORVASTATIN CALCIUM 20 MG TABLET PO SCH (08:58)
[2021-12-18] MEDS: CITALOPRAM HYDROBROMIDE 10 MG TABLET PO SCH (08:59)
[2021-12-18] MEDS: MINERAL OIL/PETROLATUM 120 GM CREAM TP SCH ×2 (09:07→22:12)
[2021-12-18 11:45] VITALS: BP 112/60
[2021-12-18 16:30] VITALS: BP 98/56
[2021-12-18] MEDS: OxyCODONE HCL/ACETAMINOPHEN 5-325 MG TABLET PO PRN (17:39)
[2021-12-18 20:55] VITALS: BP 106/65
[2021-12-18] MEDS: LIDOCAINE 5% TRANSDERMAL PATCH TD SCH (22:11)
[2021-12-18 23:20] VITALS: BP 114/74
[2021-12-19 04:57] VITALS: BP 151/70
[2021-12-19] MEDS: MORPHINE SULFATE 2 MG/ML SYRINGE IVP PRN ×6 (05:00→21:56)
[2021-12-19] MEDS: APIXABAN 5 MG TABLET PO SCH ×2 (08:37→21:13)
[2021-12-19] MEDS: MINERAL OIL/PETROLATUM 120 GM CREAM TP SCH ×2 (08:37→21:13)
[2021-12-19] MEDS: CITALOPRAM HYDROBROMIDE 10 MG TABLET PO SCH (08:37)
[2021-12-19] MEDS: LANSOPRAZOLE 30 MG CAPSULE PO SCH ×2 (08:37→21:13)
[2021-12-19] MEDS: ATORVASTATIN CALCIUM 20 MG TABLET PO SCH (08:37)
[2021-12-19 08:39] VITALS: BP 119/80
[2021-12-19] MEDS ORDERED: METOPROLOL SUCCINATE 25 MG ER TABLET PO ONE (11:00)
[2021-12-19] MEDS: OxyCODONE HCL/ACETAMINOPHEN 5-325 MG TABLET PO PRN ×2 (13:10→18:22)
[2021-12-19 13:37] VITALS: BP 121/66
[2021-12-19] MEDS ORDERED: METO25XL PO (14:28)
[2021-12-19] MEDS ORDERED: LANS30CA56 PO (14:31)
[2021-12-19] MEDS ORDERED: LIDO700A15 TP (14:34)
[2021-12-19] MEDS ORDERED: MINE50OI TP (14:35)
[2021-12-19] MEDS ORDERED: ACET-3207 PO (14:40)
[2021-12-19] MEDS ORDERED: MOM30 PO (15:04)
[2021-12-19] MEDS ORDERED: [UNRECOGNIZED DRUG - CODE] TP (15:06)
[2021-12-19] MEDS ORDERED: ZOLP-280 PO (15:08)
[2021-12-19 16:04] VITALS: BP 125/68
[2021-12-19] MEDS: LIDOCAINE 5% TRANSDERMAL PATCH TD SCH (18:28)
[2021-12-19 20:00] VITALS: BP 117/74
[2021-12-19] MEDS: METOPROLOL SUCCINATE 25 MG ER TABLET PO SCH (21:13)
== END 2021-12-19 22:05 | DRG 200 ==
LOC: EMS 16:24 → 5N 18:52
PROVIDERS: ADMIT Hospitalist; ATTEND Hospitalist
DX: J98.2 Interstitial emphysema (principal); K92.0 Hematemesis; I48.91 Unspecified atrial fibrillation; I10 Essential (primary) hypertension; E78.5 Hyperlipidemia, unspecified; Z20.822 Contact with and (suspected) exposure to COVID-19; F43.10 Post-traumatic stress disorder, unspecified; I49.5 Sick sinus syndrome; F41.9 Anxiety disorder, unspecified; Z79.01 Long term (current) use of anticoagulants; Z86.711 Personal history of pulmonary embolism; Z86.73 Personal history of transient ischemic attack (TIA), and cerebral infarction without residual deficits; Z87.19 Personal history of other diseases of the digestive system; Z79.899 Other long term (current) drug therapy; Z87.442 Personal history of urinary calculi; Z87.891 Personal history of nicotine dependence; Z86.74 Personal history of sudden cardiac arrest; Z98.1 Arthrodesis status; Z88.1 Allergy status to other antibiotic agents; Z91.040 Latex allergy status; Z91.013 Allergy to seafood; Z82.49 Family history of ischemic heart disease and other diseases of the circulatory system; Z90.49 Acquired absence of other specified parts of digestive tract; I25.2 Old myocardial infarction; F11.10 Opioid abuse, uncomplicated
CPT/HCPCS: 71045; 80053; 81001; 83605; 83880; 84484; 85025; 85379; 85730; 87081; 93005; 99285; J2270; 36415-L1; 36415-TC

== ENCOUNTER 2022-08-15 14:45 | Inpatient (IN) | payer OTHER ==
[~2022-08-15] VITALS: Ht 185.4 cm; Wt 146.2 kg
[~2022-08-15 14:45] MED LIST changes: +ACET-2080 PO; +ASPI-1444 PO; +BUSP10TA23 PO; -CITA10TA99 PO; +CLON0.2T PO; +DIAZ2 PO; +DOCU-385 PO; +DULO20CA71 PO; +FINA-27 PO; +FLEC100T3 PO; +GABA-1201 PO; +HYDR-4584 PO; +HYDR2TAB37 PO; +IVAB5TAB PO; +METH-812 PO; -METO-391 PO; +METO25XL PO; -METO5TAB87 PO; +MIRT-89 PO; +MORP15TA9 PO; +NYST30CR9 TP; +ONDA-104 PO; +OXYC10TA92 PO; +PANT-31 PO; +PECT2.8L4 MM; +PRAZ1 PO; +[UNRECOGNIZED DRUG - CODE] TP
[2022-08-15 15:29] LABS: COVID AG,FIA SOURCE NASAL SWAB
[2022-08-15 15:30] LABS: BASOPHILS % (AUTO) 0.6 % (0.0-2.0); EOSINOPHILS % (AUTO) 0.8 % (1.0-6.0); HEMATOCRIT 42.3 % (41-53); HEMOGLOBIN 14.4 g/dL (13.5-17.5); LYMPHOCYTES # (AUTO) 1.8 K/uL (1.0-4.8); LYMPHOCYTES % (AUTO) 18.4 % (22.0-44.0); MEAN CORPUSCULAR HEMOGLOBIN 27.3 pg (26.0-34.0); MEAN CORPUSCULAR VOLUME 80 fL (80-100); MONOCYTES # (AUTO) 0.8 K/uL (0.1-1.0); MONOCYTES % (AUTO) 8.1 % (2.0-9.0); NEUTROPHILS # (AUTO) 6.9 K/uL (1.8-7.7); NEUTROPHILS % (AUTO) 72.1 % (40.0-70.0); PLATELET COUNT (AUTO) 283 K/uL (150-450); RED BLOOD CELL COUNT(AUTO) 5.27 MIL/uL (4.50-5.90); RED CELL DISTRIBUTION WIDTH 14.6 % (11.5-14.5)
[2022-08-15 15:35] LABS: APPEARANCE,URINE HAZY (CLEAR); BILIRUBIN,URINE NEGATIVE (NEGATIVE); GLUCOSE, URINE (UA) NEGATIVE (NEGATIVE); KETONES,URINE NEGATIVE (NEGATIVE); LEUKOCYTE ESTERASE ,URINE LARGE (NEGATIVE); NITRATE,URINE NEGATIVE (NEGATIVE); OCCULT BLOOD,URINE LARGE (NEGATIVE); PH,URINE 6.5 (5.0-8.0); PROTEIN,URINE 30-70 mg/dL (NEGATIVE); SPECIFIC GRAVITIY, URINE 1.023 (1.003-1.030)
[2022-08-15 15:39] LABS: AMPHET/METH SCREEN,URINE NEGATIVE (NEGATIVE); BARBITURATE SCREEN, URINE NEGATIVE (NEGATIVE); BENZODIAZEPINES SCREEN,URINE POSITIVE (NEGATIVE); CANNABINOID SCREEN,URINE NEGATIVE (NEGATIVE); COCAINE SCREEN,URINE NEGATIVE (NEGATIVE); METHADONE SCREEN, URINE NEGATIVE (NEGATIVE); OPIATE SCREEN,URINE POSITIVE (NEGATIVE); PHENCYCLIDINE SCREEN,URINE NEGATIVE (NEGATIVE)
[2022-08-15 15:41] LABS: BACTERIA,URINE Few /HPF (None Seen); RBC,URINE 51-100 /HPF (0-2); SQUAMOUS EPITHELIAL CELL,UR Rare /LPF (None Seen); WBC,URINE 51-100 /HPF (0-5)
[2022-08-15 15:41] LABS: ANION GAP 4 mmol/L (8-16); CALCIUM, TOTAL 9.8 mg/dL (8.8-10.5); CARBON DIOXIDE 31 mmol/L (22-29); CHLORIDE 102 mmol/L (98-107); CREATININE 0.99 mg/dL (0.60-1.30); GLUCOSE,RANDOM 118 mg/dL (70-110); INR 1.1 (0.9-1.1); POTASSIUM 4.1 mmol/L (3.5-5.1); PROTHROMBIN TIME 11.3 SEC (9.4-11.6); SODIUM SERUM 137 mmol/L (136-145); UREA NITROGEN, BLOOD 14 mg/dL (7-18)
[2022-08-15 15:47] LABS: ALANINE AMINOTRANSFERASE 29 U/L (12-78); ALBUMIN 4.1 g/dL (3.4-5.0); ALKALINE PHOSPHATASE 114 U/L (46-116); ASPARTATE AMINOTRANSFERASE 22 U/L (15-37); BILIRUBIN,TOTAL 0.3 mg/dL (0.1-1.0); CREATINE KINASE, TOTAL ONLY 48 U/L (39-308); TOTAL PROTEIN, SERUM 8.6 g/dL (6.4-8.2)
[2022-08-15 15:50] LABS: GLOMERULAR FILTR. RATE CALC > 60 mL/min (>60)
[2022-08-15 15:55] LABS: B-TYPE NATRIURETIC PEPTIDE 10 pg/mL (0-100)
[2022-08-15] MEDS ORDERED: CloNIDine HCL 0.2 MG TABLET PO ONE (16:00)
[2022-08-15] MEDS ORDERED: KETOROLAC TROMETHAMINE 30 MG/ML VIAL IVP ONE (16:00)
[2022-08-15] MEDS ORDERED: 0.9% SODIUM CHLORIDE 10 ML SYRINGE IVP PRN (16:30)
[2022-08-15] MEDS ORDERED: ACETAMINOPHEN 325 MG TABLET PO PRN (16:30)
[2022-08-15] MEDS ORDERED: LEVOFLOXACIN 500 MG/D5% WATER 100 ML IV ONE (16:30)
[2022-08-15] MEDS ORDERED: BISACODYL 10 MG RECTAL RECTAL SUPPOSITORY PR PRN (17:00)
[2022-08-15] MEDS ORDERED: MAGNESIUM HYDROXIDE SUSPENSION 30 ML UDCUP PO PRN (17:00)
[2022-08-15] MEDS ORDERED: ALBUTEROL SULFATE 2.5 MG/0.5 ML NEB SOLUTION NEB PRN (17:00)
[2022-08-15] MEDS ORDERED: LORazepam 1 MG TABLET PO ONE (19:45)
[2022-08-15] MEDS: DOCUSATE SODIUM 100 MG CAPSULE PO SCH (21:02)
[2022-08-15] MEDS: APIXABAN 5 MG TABLET PO SCH (21:02)
[2022-08-15] MEDS: FAMOTIDINE 20 MG TABLET PO SCH (21:02)
[2022-08-15] MEDS: GABAPENTIN 300 MG CAPSULE PO SCH (21:20)
[2022-08-15 22:53] VITALS: BP 119/66
[2022-08-15] MEDS: ACETAMINOPHEN 325 MG TABLET PO PRN (22:58)
[2022-08-15] MEDS: METOPROLOL SUCCINATE 25 MG ER TABLET PO SCH (22:58)
[2022-08-16 06:54] LABS: BASOPHILS % (AUTO) 0.6 % (0.0-2.0); EOSINOPHILS % (AUTO) 1.6 % (1.0-6.0); HEMATOCRIT 39.4 % (41-53); HEMOGLOBIN 13.3 g/dL (13.5-17.5); LYMPHOCYTES # (AUTO) 1.9 K/uL (1.0-4.8); LYMPHOCYTES % (AUTO) 25.7 % (22.0-44.0); MEAN CORPUSCULAR HEMOGLOBIN 27.1 pg (26.0-34.0); MEAN CORPUSCULAR HGB CONC 33.8 G/dL (31.0-37.0); MEAN CORPUSCULAR VOLUME 80 fL (80-100); MONOCYTES # (AUTO) 0.6 K/uL (0.1-1.0); MONOCYTES % (AUTO) 8.7 % (2.0-9.0); NEUTROPHILS # (AUTO) 4.7 K/uL (1.8-7.7); NEUTROPHILS % (AUTO) 63.4 % (40.0-70.0); PLATELET COUNT (AUTO) 248 K/uL (150-450); RED BLOOD CELL COUNT(AUTO) 4.92 MIL/uL (4.50-5.90); RED CELL DISTRIBUTION WIDTH 14.4 % (11.5-14.5)
[2022-08-16 07:10] LABS: ANION GAP 8 mmol/L (8-16); CALCIUM, TOTAL 9.4 mg/dL (8.8-10.5); CARBON DIOXIDE 28 mmol/L (22-29); CHLORIDE 104 mmol/L (98-107); CREATININE 0.86 mg/dL (0.60-1.30); GLUCOSE,RANDOM 110 mg/dL (70-110); POTASSIUM 3.9 mmol/L (3.5-5.1); SODIUM SERUM 140 mmol/L (136-145); UREA NITROGEN, BLOOD 16 mg/dL (7-18)
[2022-08-16 07:20] VITALS: BP 126/69
[2022-08-16 07:45] LABS: GLOMERULAR FILTR. RATE CALC > 60 mL/min (>60)
[2022-08-16] MEDS: GABAPENTIN 300 MG CAPSULE PO SCH ×3 (08:25→21:17)
[2022-08-16] MEDS: APIXABAN 5 MG TABLET PO SCH ×2 (08:26→21:17)
[2022-08-16] MEDS: DULoxetine HCL 60 MG CAPSULE PO SCH (08:26)
[2022-08-16] MEDS: DOCUSATE SODIUM 100 MG CAPSULE PO SCH ×2 (08:26→21:00)
[2022-08-16] MEDS: METOPROLOL SUCCINATE 25 MG ER TABLET PO SCH ×2 (08:26→21:17)
[2022-08-16] MEDS: LEVOFLOXACIN 500 MG TABLET PO SCH (08:26)
[2022-08-16] MEDS: FAMOTIDINE 20 MG TABLET PO SCH ×2 (08:53→21:17)
[2022-08-16 11:22] VITALS: BP 138/85
[2022-08-16] MEDS: ACETAMINOPHEN 325 MG TABLET PO PRN (14:03)
[2022-08-16 15:04] VITALS: BP 139/98
[2022-08-16 19:11] VITALS: BP 117/90
[2022-08-16 20:20] VITALS: BP 139/79
[2022-08-16] MEDS: HydrOXYzine HCL 25 MG TABLET PO PRN (22:05)
[2022-08-17 04:55] VITALS: BP 127/85
[2022-08-17 07:52] VITALS: BP 127/85
[2022-08-17] MEDS: GABAPENTIN 300 MG CAPSULE PO SCH ×3 (08:07→19:49)
[2022-08-17] MEDS: FAMOTIDINE 20 MG TABLET PO SCH ×2 (08:07→19:49)
[2022-08-17] MEDS: DOCUSATE SODIUM 100 MG CAPSULE PO SCH ×2 (08:07→19:51)
[2022-08-17] MEDS: LEVOFLOXACIN 500 MG TABLET PO SCH (08:07)
[2022-08-17] MEDS: APIXABAN 5 MG TABLET PO SCH ×2 (08:07→19:49)
[2022-08-17] MEDS: METOPROLOL SUCCINATE 25 MG ER TABLET PO SCH ×2 (08:08→19:49)
[2022-08-17] MEDS: DULoxetine HCL 60 MG CAPSULE PO SCH (08:08)
[2022-08-17 08:18] VITALS: BP 153/77
[2022-08-17 09:24] VITALS: BP 138/78
[2022-08-17 16:04] VITALS: BP 113/56
[2022-08-17 19:30] VITALS: BP 122/68
[2022-08-18] VITALS (9 sets, daily range): BP systolic 107–156; BP diastolic 62–92
[2022-08-18] MEDS: FAMOTIDINE 20 MG TABLET PO SCH ×2 (09:14→21:17)
[2022-08-18] MEDS: LEVOFLOXACIN 500 MG TABLET PO SCH (09:14)
[2022-08-18] MEDS: GABAPENTIN 300 MG CAPSULE PO SCH ×3 (09:14→21:17)
[2022-08-18] MEDS: METOPROLOL SUCCINATE 25 MG ER TABLET PO SCH ×2 (09:14→21:17)
[2022-08-18] MEDS: DOCUSATE SODIUM 100 MG CAPSULE PO SCH ×2 (09:14→21:00)
[2022-08-18] MEDS: APIXABAN 5 MG TABLET PO SCH ×2 (09:14→21:17)
[2022-08-18] MEDS: DULoxetine HCL 60 MG CAPSULE PO SCH (09:14)
[2022-08-18] MEDS: HydrOXYzine HCL 25 MG TABLET PO PRN (11:33)
[2022-08-18] MEDS ORDERED: DENTURE ADHESIVE 68 GM CREAM DT PRN (13:30)
[2022-08-19] VITALS (10 sets, daily range): BP systolic 97–167; BP diastolic 65–100
[2022-08-19] MEDS: METOPROLOL SUCCINATE 25 MG ER TABLET PO SCH ×3 (09:00→19:32)
[2022-08-19] MEDS: DOCUSATE SODIUM 100 MG CAPSULE PO SCH ×2 (09:00→19:41)
[2022-08-19] MEDS: FAMOTIDINE 20 MG TABLET PO SCH ×2 (09:36→19:32)
[2022-08-19] MEDS: GABAPENTIN 300 MG CAPSULE PO SCH ×3 (09:36→19:32)
[2022-08-19] MEDS: APIXABAN 5 MG TABLET PO SCH ×2 (09:36→19:32)
[2022-08-19] MEDS: DULoxetine HCL 60 MG CAPSULE PO SCH (09:36)
[2022-08-19] MEDS: LEVOFLOXACIN 500 MG TABLET PO SCH (09:36)
[2022-08-19] MEDS: ACETAMINOPHEN 325 MG TABLET PO PRN ×3 (14:47→23:20)
[2022-08-19] MEDS ORDERED: NITROGLYCERIN 0.4 MG SUBLINGUAL TABLET #25 SL ONE (20:00)
[2022-08-19] MEDS ORDERED: MORPHINE SULFATE 2 MG/ML SYRINGE IVP ONE (20:15)
[2022-08-19] MEDS ORDERED: KETOROLAC TROMETHAMINE 15 MG/ML VIAL IVP ONE (21:15)
[2022-08-19] MEDS: HydrOXYzine HCL 25 MG TABLET PO PRN (22:19)
[2022-08-20 07:39] VITALS: BP 113/72
[2022-08-20] MEDS: DOCUSATE SODIUM 100 MG CAPSULE PO SCH ×2 (09:00→20:37)
[2022-08-20] MEDS: METOPROLOL SUCCINATE 25 MG ER TABLET PO SCH ×2 (09:15→20:31)
[2022-08-20] MEDS: DULoxetine HCL 60 MG CAPSULE PO SCH (09:15)
[2022-08-20] MEDS: FAMOTIDINE 20 MG TABLET PO SCH ×2 (09:15→20:31)
[2022-08-20] MEDS: LEVOFLOXACIN 500 MG TABLET PO SCH (09:15)
[2022-08-20] MEDS: APIXABAN 5 MG TABLET PO SCH ×2 (09:16→20:31)
[2022-08-20] MEDS: GABAPENTIN 300 MG CAPSULE PO SCH ×3 (09:16→20:31)
[2022-08-20 10:25] VITALS: BP 148/93
[2022-08-20 16:51] VITALS: BP 162/97
[2022-08-20] MEDS ORDERED: CloNIDine HCL 0.1 MG TABLET PO ONE (17:30)
[2022-08-20 19:35] VITALS: BP 141/100
[2022-08-20] MEDS: ACETAMINOPHEN 325 MG TABLET PO PRN (20:31)
[2022-08-20] MEDS: ONDANSETRON HCL 4 MG/2 ML VIAL IVP PRN (21:57)
[2022-08-21 04:05] VITALS: BP 98/64
[2022-08-21] MEDS: GABAPENTIN 300 MG CAPSULE PO SCH ×3 (07:58→20:29)
[2022-08-21] MEDS: LEVOFLOXACIN 500 MG TABLET PO SCH (07:58)
[2022-08-21] MEDS: DULoxetine HCL 60 MG CAPSULE PO SCH (07:58)
[2022-08-21] MEDS: FAMOTIDINE 20 MG TABLET PO SCH ×2 (07:58→20:30)
[2022-08-21] MEDS: APIXABAN 5 MG TABLET PO SCH ×2 (07:58→20:29)
[2022-08-21] MEDS: DOCUSATE SODIUM 100 MG CAPSULE PO SCH ×2 (07:59→20:32)
[2022-08-21] MEDS: METOPROLOL SUCCINATE 25 MG ER TABLET PO SCH ×2 (08:05→20:29)
[2022-08-21 08:24] VITALS: BP 99/59
[2022-08-21 08:30] VITALS: BP 146/98
[2022-08-21] MEDS: ACETAMINOPHEN 325 MG TABLET PO PRN (09:28)
[2022-08-21 20:15] VITALS: BP 145/86
[2022-08-21] MEDS ORDERED: MELATONIN 3 MG TABLET PO ONE (20:45)
[2022-08-22 04:31] VITALS: BP 102/64
[2022-08-22 07:30] VITALS: BP 109/60
[2022-08-22] MEDS: LEVOFLOXACIN 500 MG TABLET PO SCH (08:15)
[2022-08-22] MEDS: FAMOTIDINE 20 MG TABLET PO SCH ×2 (08:15→20:56)
[2022-08-22] MEDS: DULoxetine HCL 60 MG CAPSULE PO SCH (08:15)
[2022-08-22] MEDS: METOPROLOL SUCCINATE 25 MG ER TABLET PO SCH ×2 (08:15→20:56)
[2022-08-22] MEDS: APIXABAN 5 MG TABLET PO SCH ×2 (08:15→20:55)
[2022-08-22] MEDS: GABAPENTIN 300 MG CAPSULE PO SCH ×3 (08:16→20:55)
[2022-08-22] MEDS: DOCUSATE SODIUM 100 MG CAPSULE PO SCH ×2 (08:21→20:56)
[2022-08-22] MEDS: ACETAMINOPHEN 325 MG TABLET PO PRN (08:27)
[2022-08-22 15:52] VITALS: BP 143/76
[2022-08-22 20:57] VITALS: BP 139/81
[2022-08-23 07:49] VITALS: BP 119/65
[2022-08-23] MEDS: METOPROLOL SUCCINATE 25 MG ER TABLET PO SCH ×2 (09:32→19:55)
[2022-08-23] MEDS: DOCUSATE SODIUM 100 MG CAPSULE PO SCH ×2 (09:32→19:55)
[2022-08-23] MEDS: LEVOFLOXACIN 500 MG TABLET PO SCH (09:32)
[2022-08-23] MEDS: GABAPENTIN 300 MG CAPSULE PO SCH ×3 (09:32→19:55)
[2022-08-23] MEDS: FAMOTIDINE 20 MG TABLET PO SCH ×2 (09:32→19:55)
[2022-08-23] MEDS: APIXABAN 5 MG TABLET PO SCH ×2 (09:32→19:55)
[2022-08-23] MEDS: DULoxetine HCL 60 MG CAPSULE PO SCH (09:32)
[2022-08-23 14:49] VITALS: BP 155/98
[2022-08-23 19:58] VITALS: BP 134/81
[2022-08-24 05:41] VITALS: BP 99/59
[2022-08-24] MEDS: DOCUSATE SODIUM 100 MG CAPSULE PO SCH ×3 (07:49→20:22)
[2022-08-24] MEDS: GABAPENTIN 300 MG CAPSULE PO SCH ×3 (07:49→20:27)
[2022-08-24] MEDS: DULoxetine HCL 60 MG CAPSULE PO SCH ×2 (07:50→08:12)
[2022-08-24] MEDS: FAMOTIDINE 20 MG TABLET PO SCH ×2 (07:50→20:27)
[2022-08-24] MEDS: METOPROLOL SUCCINATE 25 MG ER TABLET PO SCH ×2 (07:50→20:27)
[2022-08-24] MEDS: LEVOFLOXACIN 500 MG TABLET PO SCH (07:50)
[2022-08-24] MEDS: APIXABAN 5 MG TABLET PO SCH ×2 (07:50→20:26)
[2022-08-24 08:00] VITALS: BP 119/83
[2022-08-24 15:48] VITALS: BP 145/91
[2022-08-24 19:55] VITALS: BP 134/80
[2022-08-25 04:08] VITALS: BP 119/80
[2022-08-25 07:58] VITALS: BP 122/70
[2022-08-25] MEDS: FAMOTIDINE 20 MG TABLET PO SCH ×2 (09:23→20:48)
[2022-08-25] MEDS: DOCUSATE SODIUM 100 MG CAPSULE PO SCH ×2 (09:23→20:43)
[2022-08-25] MEDS: LEVOFLOXACIN 500 MG TABLET PO SCH (09:23)
[2022-08-25] MEDS: APIXABAN 5 MG TABLET PO SCH ×2 (09:23→20:48)
[2022-08-25] MEDS: DULoxetine HCL 60 MG CAPSULE PO SCH (09:23)
[2022-08-25] MEDS: METOPROLOL SUCCINATE 25 MG ER TABLET PO SCH ×2 (09:23→20:48)
[2022-08-25] MEDS: GABAPENTIN 300 MG CAPSULE PO SCH ×3 (09:23→20:48)
[2022-08-25 20:00] VITALS: BP 138/79
[2022-08-25 22:28] VITALS: BP 135/87
[2022-08-25] MEDS ORDERED: METOPROLOL SUCCINATE 25 MG ER TABLET PO ONE (23:00)
[2022-08-25] MEDS: ACETAMINOPHEN 325 MG TABLET PO PRN (23:08)
[2022-08-26 05:05] VITALS: BP 112/55
[2022-08-26 08:18] VITALS: BP 112/52
[2022-08-26] MEDS: DULoxetine HCL 60 MG CAPSULE PO SCH (08:23)
[2022-08-26] MEDS: LEVOFLOXACIN 500 MG TABLET PO SCH (08:23)
[2022-08-26] MEDS: GABAPENTIN 300 MG CAPSULE PO SCH ×3 (08:23→21:14)
[2022-08-26] MEDS: APIXABAN 5 MG TABLET PO SCH ×2 (08:24→21:14)
[2022-08-26] MEDS: FAMOTIDINE 20 MG TABLET PO SCH ×2 (08:24→21:14)
[2022-08-26] MEDS: METOPROLOL SUCCINATE 50 MG ER TABLET PO SCH ×2 (08:24→21:14)
[2022-08-26] MEDS: DOCUSATE SODIUM 100 MG CAPSULE PO SCH ×2 (08:29→21:00)
[2022-08-26 15:15] VITALS: BP 143/96
[2022-08-26 19:40] VITALS: BP 132/90
[2022-08-27 04:10] VITALS: BP 126/69
[2022-08-27 07:43] VITALS: BP 102/56
[2022-08-27] MEDS: GABAPENTIN 300 MG CAPSULE PO SCH ×3 (08:09→20:26)
[2022-08-27] MEDS: METOPROLOL SUCCINATE 50 MG ER TABLET PO SCH ×2 (08:10→20:25)
[2022-08-27] MEDS: LEVOFLOXACIN 500 MG TABLET PO SCH (08:10)
[2022-08-27] MEDS: FAMOTIDINE 20 MG TABLET PO SCH ×2 (08:10→20:25)
[2022-08-27] MEDS: DOCUSATE SODIUM 100 MG CAPSULE PO SCH ×2 (08:10→20:26)
[2022-08-27] MEDS: DULoxetine HCL 60 MG CAPSULE PO SCH (08:10)
[2022-08-27] MEDS: APIXABAN 5 MG TABLET PO SCH ×2 (08:10→20:25)
[2022-08-27 15:40] VITALS: BP 145/80
[2022-08-27] MEDS ORDERED: SODIUM CHLORIDE 0.9% 500 ML IV ONE (17:45)
[2022-08-27 20:12] VITALS: BP 146/90
[2022-08-28 01:36] LABS: GLUCOMETER DEV NAME(LOC) 6N.2B; GLUCOSE,POINT OF CARE 119 MG/DL (70-110)
[2022-08-28 05:12] VITALS: BP 111/74
[2022-08-28 08:02] VITALS: BP 118/76
[2022-08-28] MEDS: GABAPENTIN 300 MG CAPSULE PO SCH ×3 (08:33→21:18)
[2022-08-28] MEDS: DULoxetine HCL 60 MG CAPSULE PO SCH (08:34)
[2022-08-28] MEDS: APIXABAN 5 MG TABLET PO SCH ×2 (08:34→21:18)
[2022-08-28] MEDS: FAMOTIDINE 20 MG TABLET PO SCH ×2 (08:34→21:18)
[2022-08-28] MEDS: METOPROLOL SUCCINATE 50 MG ER TABLET PO SCH ×2 (08:34→22:20)
[2022-08-28] MEDS: LEVOFLOXACIN 500 MG TABLET PO SCH (08:36)
[2022-08-28] MEDS: DOCUSATE SODIUM 100 MG CAPSULE PO SCH ×2 (08:38→21:00)
[2022-08-28] MEDS: ONDANSETRON HCL 4 MG/2 ML VIAL IVP PRN (11:55)
[2022-08-28 15:39] VITALS: BP 126/68
[2022-08-28 19:41] VITALS: BP 123/80
[2022-08-29 00:20] VITALS: BP 135/74
[2022-08-29 06:44] VITALS: BP 115/68
[2022-08-29 07:50] VITALS: BP 107/61
[2022-08-29] MEDS: DOCUSATE SODIUM 100 MG CAPSULE PO SCH ×2 (09:00→21:00)
[2022-08-29] MEDS: GABAPENTIN 300 MG CAPSULE PO SCH ×3 (09:21→21:18)
[2022-08-29] MEDS: DULoxetine HCL 60 MG CAPSULE PO SCH (09:21)
[2022-08-29] MEDS: LEVOFLOXACIN 500 MG TABLET PO SCH (09:22)
[2022-08-29] MEDS: FAMOTIDINE 20 MG TABLET PO SCH ×2 (09:22→21:21)
[2022-08-29] MEDS: METOPROLOL SUCCINATE 50 MG ER TABLET PO SCH ×2 (09:22→21:19)
[2022-08-29] MEDS: APIXABAN 5 MG TABLET PO SCH ×2 (09:22→21:00)
[2022-08-29 10:44] LABS: BASOPHILS % (AUTO) 0.6 % (0.0-2.0); EOSINOPHILS % (AUTO) 2.4 % (1.0-6.0); HEMATOCRIT 40.7 % (41-53); HEMOGLOBIN 14.2 g/dL (13.5-17.5); LYMPHOCYTES # (AUTO) 1.7 K/uL (1.0-4.8); LYMPHOCYTES % (AUTO) 19.3 % (22.0-44.0); MEAN CORPUSCULAR HEMOGLOBIN 27.7 pg (26.0-34.0); MEAN CORPUSCULAR HGB CONC 34.9 G/dL (31.0-37.0); MEAN CORPUSCULAR VOLUME 79 fL (80-100); MONOCYTES # (AUTO) 0.8 K/uL (0.1-1.0); NEUTROPHILS # (AUTO) 5.9 K/uL (1.8-7.7); NEUTROPHILS % (AUTO) 68.7 % (40.0-70.0); PLATELET COUNT (AUTO) 258 K/uL (150-450); RED BLOOD CELL COUNT(AUTO) 5.12 MIL/uL (4.50-5.90); RED CELL DISTRIBUTION WIDTH 14.2 % (11.5-14.5)
[2022-08-29 11:01] LABS: ALANINE AMINOTRANSFERASE 57 U/L (12-78); ALBUMIN 3.6 g/dL (3.4-5.0); ALKALINE PHOSPHATASE 102 U/L (46-116); ANION GAP 7 mmol/L (8-16); ASPARTATE AMINOTRANSFERASE 23 U/L (15-37); BILIRUBIN,TOTAL 0.2 mg/dL (0.1-1.0); CALCIUM, TOTAL 9.1 mg/dL (8.8-10.5); CARBON DIOXIDE 28 mmol/L (22-29); CHLORIDE 104 mmol/L (98-107); CREATININE 0.94 mg/dL (0.60-1.30); GLUCOSE,RANDOM 121 mg/dL (70-110); SODIUM SERUM 139 mmol/L (136-145); TOTAL PROTEIN, SERUM 7.9 g/dL (6.4-8.2); UREA NITROGEN, BLOOD 15 mg/dL (7-18)
[2022-08-29 11:05] LABS: GLOMERULAR FILTR. RATE CALC > 60 mL/min (>60)
[2022-08-29] MEDS ORDERED: HYDROCORTISONE 1% 120 ML LOTION TP PRN (11:30)
[2022-08-29 12:06] VITALS: BP 131/69
[2022-08-29 19:46] VITALS: BP 119/86
[2022-08-29] MEDS: ONDANSETRON HCL 4 MG/2 ML VIAL IVP PRN (21:17)
[2022-08-30] VITALS (10 sets, daily range): BP systolic 111–180; BP diastolic 67–123
[2022-08-30] MEDS: DOCUSATE SODIUM 100 MG CAPSULE PO SCH ×3 (09:00→21:00)
[2022-08-30] MEDS: DULoxetine HCL 60 MG CAPSULE PO SCH (09:23)
[2022-08-30] MEDS: LEVOFLOXACIN 500 MG TABLET PO SCH (09:23)
[2022-08-30] MEDS: APIXABAN 5 MG TABLET PO SCH ×2 (09:23→20:41)
[2022-08-30] MEDS: FAMOTIDINE 20 MG TABLET PO SCH ×2 (09:23→20:41)
[2022-08-30] MEDS: GABAPENTIN 300 MG CAPSULE PO SCH ×3 (09:23→20:41)
[2022-08-30] MEDS: METOPROLOL SUCCINATE 50 MG ER TABLET PO SCH ×2 (09:30→22:15)
[2022-08-30] MEDS: ONDANSETRON HCL 4 MG/2 ML VIAL IVP PRN ×2 (12:51→19:48)
[2022-08-30] MEDS: NITROGLYCERIN 0.4 MG SUBLINGUAL TABLET #25 SL PRN ×3 (19:23→19:42)
[2022-08-30] MEDS ORDERED: METOPROLOL TARTRATE 5 MG/5 ML VIAL IVP ONE (20:00)
[2022-08-30] MEDS ORDERED: LORazepam 2 MG/ML VIAL IVP ONE (20:00)
[2022-08-31 00:05] VITALS: BP 150/106
[2022-08-31] MEDS ORDERED: KETOROLAC TROMETHAMINE 15 MG/ML VIAL IVP ONE (00:45)
[2022-08-31 04:30] VITALS: BP 115/56
[2022-08-31 07:27] VITALS: BP 123/61
[2022-08-31] MEDS: DOCUSATE SODIUM 100 MG CAPSULE PO SCH ×2 (09:00→21:00)
[2022-08-31] MEDS: APIXABAN 5 MG TABLET PO SCH ×2 (10:27→21:36)
[2022-08-31] MEDS: GABAPENTIN 300 MG CAPSULE PO SCH ×3 (10:27→21:36)
[2022-08-31] MEDS: LEVOFLOXACIN 500 MG TABLET PO SCH (10:27)
[2022-08-31] MEDS: METOPROLOL SUCCINATE 50 MG ER TABLET PO SCH ×2 (10:27→21:36)
[2022-08-31] MEDS: DULoxetine HCL 60 MG CAPSULE PO SCH (10:27)
[2022-08-31] MEDS: FAMOTIDINE 20 MG TABLET PO SCH ×2 (10:27→21:36)
[2022-08-31 11:33] VITALS: BP 110/72
[2022-08-31] MEDS: ONDANSETRON HCL 4 MG/2 ML VIAL IVP PRN ×2 (14:19→23:28)
[2022-08-31] MEDS: NITROGLYCERIN 0.4 MG SUBLINGUAL TABLET #25 SL PRN ×5 (14:19→23:39)
[2022-08-31 14:42] VITALS: BP 103/90
[2022-08-31 19:58] VITALS: BP 112/65
[2022-09-01] VITALS (7 sets, daily range): BP systolic 97–151; BP diastolic 9–98
[2022-09-01] MEDS: FAMOTIDINE 20 MG TABLET PO SCH ×2 (09:36→21:10)
[2022-09-01] MEDS: APIXABAN 5 MG TABLET PO SCH ×2 (09:36→21:10)
[2022-09-01] MEDS: LEVOFLOXACIN 500 MG TABLET PO SCH (09:36)
[2022-09-01] MEDS: GABAPENTIN 300 MG CAPSULE PO SCH ×3 (09:36→21:10)
[2022-09-01] MEDS: DULoxetine HCL 60 MG CAPSULE PO SCH (09:36)
[2022-09-01] MEDS: DOCUSATE SODIUM 100 MG CAPSULE PO SCH ×2 (09:36→21:00)
[2022-09-01] MEDS: METOPROLOL SUCCINATE 50 MG ER TABLET PO SCH ×2 (09:36→21:33)
[2022-09-01] MEDS: ONDANSETRON HCL 4 MG/2 ML VIAL IVP PRN ×2 (11:10→23:07)
[2022-09-01] MEDS: NITROGLYCERIN 0.4 MG SUBLINGUAL TABLET #25 SL PRN ×3 (22:49→23:01)
[2022-09-02 08:17] VITALS: BP 101/49
[2022-09-02] MEDS: DOCUSATE SODIUM 100 MG CAPSULE PO SCH ×2 (09:00→20:55)
[2022-09-02] MEDS: DULoxetine HCL 60 MG CAPSULE PO SCH (09:14)
[2022-09-02] MEDS: LEVOFLOXACIN 500 MG TABLET PO SCH (09:14)
[2022-09-02] MEDS: APIXABAN 5 MG TABLET PO SCH ×2 (09:14→20:54)
[2022-09-02] MEDS: GABAPENTIN 300 MG CAPSULE PO SCH ×3 (09:14→20:54)
[2022-09-02] MEDS: FAMOTIDINE 20 MG TABLET PO SCH ×2 (09:14→20:55)
[2022-09-02] MEDS: METOPROLOL SUCCINATE 50 MG ER TABLET PO SCH ×2 (09:14→20:54)
[2022-09-02 11:45] VITALS: BP 121/86
[2022-09-02] MEDS: ONDANSETRON HCL 4 MG/2 ML VIAL IVP PRN (11:47)
[2022-09-02] MEDS: DIAZEPAM 5 MG TABLET PO PRN ×2 (11:47→18:47)
[2022-09-02] MEDS: BusPIRone HCL 10 MG TABLET PO SCH ×2 (15:51→20:55)
[2022-09-02 16:40] VITALS: BP 126/70
[2022-09-02 18:03] LABS: APPEARANCE,URINE HAZY (CLEAR); BILIRUBIN,URINE NEGATIVE (NEGATIVE); GLUCOSE, URINE (UA) NEGATIVE (NEGATIVE); KETONES,URINE NEGATIVE (NEGATIVE); LEUKOCYTE ESTERASE ,URINE MODERATE (NEGATIVE); NITRATE,URINE NEGATIVE (NEGATIVE); OCCULT BLOOD,URINE LARGE (NEGATIVE); PH,URINE 5.5 (5.0-8.0); PROTEIN,URINE 100-200,SEE CONFIRM mg/dL (NEGATIVE); SPECIFIC GRAVITIY, URINE 1.028 (1.003-1.030); UROBILINOGEN,URINE <=1.0 mg/dL (<=1.0)
[2022-09-02 18:19] LABS: BACTERIA,URINE None Seen /HPF (None Seen)
[2022-09-02 18:20] LABS: SULFOSALICYLIC ACID,URINE 1+ (Negative)
[2022-09-02 19:54] VITALS: BP 128/74
[2022-09-02] MEDS: TraZODone HCL 50 MG TABLET PO SCH (20:55)
[2022-09-03 00:24] VITALS: BP 96/57
[2022-09-03] MEDS: DIAZEPAM 5 MG TABLET PO PRN ×4 (00:50→21:26)
[2022-09-03 08:15] VITALS: BP 122/76
[2022-09-03] MEDS: DOCUSATE SODIUM 100 MG CAPSULE PO SCH ×2 (09:00→21:00)
[2022-09-03] MEDS: BusPIRone HCL 10 MG TABLET PO SCH ×3 (09:12→21:27)
[2022-09-03] MEDS: METOPROLOL SUCCINATE 50 MG ER TABLET PO SCH ×2 (09:13→21:27)
[2022-09-03] MEDS: FAMOTIDINE 20 MG TABLET PO SCH ×2 (09:13→21:26)
[2022-09-03] MEDS: LEVOFLOXACIN 500 MG TABLET PO SCH (09:13)
[2022-09-03] MEDS: DULoxetine HCL 30 MG CAPSULE PO SCH (09:13)
[2022-09-03] MEDS: GABAPENTIN 300 MG CAPSULE PO SCH ×3 (09:13→21:27)
[2022-09-03] MEDS: APIXABAN 5 MG TABLET PO SCH ×2 (09:13→21:26)
[2022-09-03 12:03] VITALS: BP 107/55
[2022-09-03] MEDS: ONDANSETRON HCL 4 MG/2 ML VIAL IVP PRN (15:16)
[2022-09-03] MEDS: NITROGLYCERIN 0.4 MG SUBLINGUAL TABLET #25 SL PRN ×3 (15:16→15:30)
[2022-09-03 15:30] VITALS: BP 145/114
[2022-09-03] MEDS: PHENAZOPYRIDINE HCL 100 MG TABLET PO SCH ×2 (18:26→21:26)
[2022-09-03 20:40] VITALS: BP 114/75
[2022-09-03] MEDS: TraZODone HCL 50 MG TABLET PO SCH (21:27)
[2022-09-04 04:38] VITALS: BP 96/75
[2022-09-04] MEDS: DIAZEPAM 5 MG TABLET PO PRN ×3 (06:51→20:20)
[2022-09-04] MEDS: DOCUSATE SODIUM 100 MG CAPSULE PO SCH ×2 (09:00→20:20)
[2022-09-04] MEDS: METOPROLOL SUCCINATE 50 MG ER TABLET PO SCH ×2 (10:29→20:21)
[2022-09-04] MEDS: PHENAZOPYRIDINE HCL 100 MG TABLET PO SCH ×3 (10:29→20:21)
[2022-09-04] MEDS: APIXABAN 5 MG TABLET PO SCH ×2 (10:29→20:20)
[2022-09-04] MEDS: DULoxetine HCL 30 MG CAPSULE PO SCH (10:29)
[2022-09-04] MEDS: LEVOFLOXACIN 500 MG TABLET PO SCH (10:29)
[2022-09-04] MEDS: BusPIRone HCL 10 MG TABLET PO SCH ×3 (10:29→20:22)
[2022-09-04] MEDS: FAMOTIDINE 20 MG TABLET PO SCH ×2 (10:29→20:21)
[2022-09-04] MEDS: GABAPENTIN 300 MG CAPSULE PO SCH ×3 (10:29→20:21)
[2022-09-04 11:37] VITALS: BP 135/66
[2022-09-04 15:43] VITALS: BP 132/84
[2022-09-04] MEDS: NITROGLYCERIN 0.4 MG SUBLINGUAL TABLET #25 SL PRN ×3 (18:25→18:39)
[2022-09-04] MEDS: ONDANSETRON HCL 4 MG/2 ML VIAL IVP PRN (18:35)
[2022-09-04 19:35] VITALS: BP 93/63
[2022-09-04] MEDS: TraZODone HCL 50 MG TABLET PO SCH (20:22)
[2022-09-05 00:27] VITALS: BP 110/72
[2022-09-05] MEDS: DOCUSATE SODIUM 100 MG CAPSULE PO SCH ×2 (09:00→20:38)
[2022-09-05] MEDS: GABAPENTIN 300 MG CAPSULE PO SCH ×3 (10:19→20:34)
[2022-09-05] MEDS: LEVOFLOXACIN 500 MG TABLET PO SCH (10:19)
[2022-09-05] MEDS: APIXABAN 5 MG TABLET PO SCH ×2 (10:19→20:34)
[2022-09-05] MEDS: METOPROLOL SUCCINATE 50 MG ER TABLET PO SCH ×2 (10:19→20:34)
[2022-09-05] MEDS: BusPIRone HCL 10 MG TABLET PO SCH ×3 (10:19→20:34)
[2022-09-05] MEDS: FAMOTIDINE 20 MG TABLET PO SCH ×2 (10:20→20:34)
[2022-09-05] MEDS: DIAZEPAM 5 MG TABLET PO PRN ×3 (10:20→22:15)
[2022-09-05] MEDS: DULoxetine HCL 30 MG CAPSULE PO SCH (10:20)
[2022-09-05] MEDS: PHENAZOPYRIDINE HCL 100 MG TABLET PO SCH ×3 (10:20→20:34)
[2022-09-05 10:27] VITALS: BP 121/75
[2022-09-05 16:33] VITALS: BP 119/69
[2022-09-05 19:53] VITALS: BP 124/75
[2022-09-05] MEDS: NITROGLYCERIN 0.4 MG SUBLINGUAL TABLET #25 SL PRN (20:38)
[2022-09-05] MEDS: TraZODone HCL 50 MG TABLET PO SCH (20:41)
[2022-09-06] MEDS: DIAZEPAM 5 MG TABLET PO PRN ×4 (04:28→23:28)
[2022-09-06 05:15] VITALS: BP 125/74
[2022-09-06 08:00] VITALS: BP 99/58
[2022-09-06] MEDS: DOCUSATE SODIUM 100 MG CAPSULE PO SCH ×2 (09:00→20:47)
[2022-09-06] MEDS: METOPROLOL SUCCINATE 50 MG ER TABLET PO SCH ×2 (09:11→20:46)
[2022-09-06] MEDS: APIXABAN 5 MG TABLET PO SCH ×2 (09:11→20:46)
[2022-09-06] MEDS: LEVOFLOXACIN 500 MG TABLET PO SCH (09:11)
[2022-09-06] MEDS: BusPIRone HCL 10 MG TABLET PO SCH ×3 (09:11→20:46)
[2022-09-06] MEDS: GABAPENTIN 300 MG CAPSULE PO SCH ×3 (09:11→20:46)
[2022-09-06] MEDS: DULoxetine HCL 30 MG CAPSULE PO SCH (09:11)
[2022-09-06] MEDS: FAMOTIDINE 20 MG TABLET PO SCH ×2 (09:11→20:46)
[2022-09-06] MEDS: PHENAZOPYRIDINE HCL 100 MG TABLET PO SCH ×3 (09:11→20:46)
[2022-09-06 12:00] VITALS: BP 124/67
[2022-09-06 16:09] VITALS: BP 141/68
[2022-09-06 17:53] VITALS: BP 110/56
[2022-09-06] MEDS: TraZODone HCL 50 MG TABLET PO SCH (20:46)
[2022-09-06 21:10] VITALS: BP 108/71
[2022-09-07 06:28] VITALS: BP 116/64
[2022-09-07 07:02] VITALS: BP 119/72
[2022-09-07] MEDS: DOCUSATE SODIUM 100 MG CAPSULE PO SCH ×2 (08:37→21:17)
[2022-09-07] MEDS: DULoxetine HCL 30 MG CAPSULE PO SCH (08:37)
[2022-09-07] MEDS: BusPIRone HCL 10 MG TABLET PO SCH ×3 (08:37→22:31)
[2022-09-07] MEDS: FAMOTIDINE 20 MG TABLET PO SCH ×2 (08:38→21:16)
[2022-09-07] MEDS: APIXABAN 5 MG TABLET PO SCH ×2 (08:38→21:17)
[2022-09-07] MEDS: METOPROLOL SUCCINATE 50 MG ER TABLET PO SCH ×2 (08:38→21:18)
[2022-09-07] MEDS: PHENAZOPYRIDINE HCL 100 MG TABLET PO SCH ×3 (08:38→21:17)
[2022-09-07] MEDS: GABAPENTIN 300 MG CAPSULE PO SCH ×3 (08:38→21:17)
[2022-09-07] MEDS: LEVOFLOXACIN 500 MG TABLET PO SCH (08:38)
[2022-09-07] MEDS: DIAZEPAM 5 MG TABLET PO PRN ×2 (08:40→22:31)
[2022-09-07 11:54] VITALS: BP 122/81
[2022-09-07 15:27] VITALS: BP 138/81
[2022-09-07] MEDS: ONDANSETRON HCL 4 MG/2 ML VIAL IVP PRN (16:10)
[2022-09-07 19:56] VITALS: BP 155/62
[2022-09-07 20:12] VITALS: BP 118/83
[2022-09-08 08:00] VITALS: BP 107/64
[2022-09-08] MEDS: DOCUSATE SODIUM 100 MG CAPSULE PO SCH ×2 (09:00→20:30)
[2022-09-08] MEDS: FAMOTIDINE 20 MG TABLET PO SCH ×2 (10:31→20:44)
[2022-09-08] MEDS: APIXABAN 5 MG TABLET PO SCH ×2 (10:32→20:29)
[2022-09-08] MEDS: DULoxetine HCL 30 MG CAPSULE PO SCH (10:32)
[2022-09-08] MEDS: LEVOFLOXACIN 500 MG TABLET PO SCH (10:32)
[2022-09-08] MEDS: DIAZEPAM 5 MG TABLET PO PRN ×2 (10:32→20:30)
[2022-09-08] MEDS: BusPIRone HCL 10 MG TABLET PO SCH ×3 (10:32→20:29)
[2022-09-08] MEDS: GABAPENTIN 300 MG CAPSULE PO SCH ×3 (10:32→20:28)
[2022-09-08] MEDS: PHENAZOPYRIDINE HCL 100 MG TABLET PO SCH ×3 (10:32→20:28)
[2022-09-08] MEDS: METOPROLOL SUCCINATE 50 MG ER TABLET PO SCH ×2 (10:38→20:28)
[2022-09-08 12:00] VITALS: BP 121/80
[2022-09-08 16:00] VITALS: BP 132/84
[2022-09-08 21:10] VITALS: BP 123/77
[2022-09-09] VITALS (8 sets, daily range): BP systolic 96–132; BP diastolic 48–97
[2022-09-09] MEDS: DIAZEPAM 5 MG TABLET PO PRN ×3 (04:55→20:04)
[2022-09-09] MEDS: DOCUSATE SODIUM 100 MG CAPSULE PO SCH ×3 (09:00→21:00)
[2022-09-09] MEDS: GABAPENTIN 300 MG CAPSULE PO SCH ×3 (10:00→20:04)
[2022-09-09] MEDS: PHENAZOPYRIDINE HCL 100 MG TABLET PO SCH ×3 (10:00→20:05)
[2022-09-09] MEDS: FAMOTIDINE 20 MG TABLET PO SCH ×2 (10:00→20:04)
[2022-09-09] MEDS: APIXABAN 5 MG TABLET PO SCH ×2 (10:01→20:05)
[2022-09-09] MEDS: METOPROLOL SUCCINATE 50 MG ER TABLET PO SCH ×2 (10:01→20:04)
[2022-09-09] MEDS: DULoxetine HCL 30 MG CAPSULE PO SCH (10:01)
[2022-09-09] MEDS: BusPIRone HCL 10 MG TABLET PO SCH ×3 (10:01→20:04)
[2022-09-09] MEDS: LEVOFLOXACIN 500 MG TABLET PO SCH (10:02)
[2022-09-09 13:41] LABS: BASOPHILS % (AUTO) 0.4 % (0.0-2.0); EOSINOPHILS % (AUTO) 2.1 % (1.0-6.0); HEMATOCRIT 41.5 % (41-53); HEMOGLOBIN 14.3 g/dL (13.5-17.5); LYMPHOCYTES # (AUTO) 1.2 K/uL (1.0-4.8); LYMPHOCYTES % (AUTO) 16.1 % (22.0-44.0); MEAN CORPUSCULAR HEMOGLOBIN 27.4 pg (26.0-34.0); MEAN CORPUSCULAR HGB CONC 34.5 G/dL (31.0-37.0); MEAN CORPUSCULAR VOLUME 80 fL (80-100); MONOCYTES # (AUTO) 0.7 K/uL (0.1-1.0); MONOCYTES % (AUTO) 9.1 % (2.0-9.0); NEUTROPHILS # (AUTO) 5.2 K/uL (1.8-7.7); NEUTROPHILS % (AUTO) 72.3 % (40.0-70.0); PLATELET COUNT (AUTO) 259 K/uL (150-450); RED BLOOD CELL COUNT(AUTO) 5.22 MIL/uL (4.50-5.90); RED CELL DISTRIBUTION WIDTH 14.4 % (11.5-14.5)
[2022-09-09 13:52] LABS: ANION GAP 4 mmol/L (8-16); CALCIUM, TOTAL 9.3 mg/dL (8.8-10.5); CARBON DIOXIDE 32 mmol/L (22-29); CHLORIDE 103 mmol/L (98-107); CREATININE 0.97 mg/dL (0.60-1.30); GLOMERULAR FILTR. RATE CALC > 60 mL/min (>60); GLUCOSE,RANDOM 120 mg/dL (70-110); POTASSIUM 4.1 mmol/L (3.5-5.1); SODIUM SERUM 139 mmol/L (136-145); UREA NITROGEN, BLOOD 15 mg/dL (7-18)
[2022-09-09] MEDS: NITROGLYCERIN 0.4 MG SUBLINGUAL TABLET #25 SL PRN ×2 (20:05→20:23)
[2022-09-09] MEDS ORDERED: DIAZEPAM 2 MG TABLET PO ONE (23:15)
[2022-09-10] MEDS: DIAZEPAM 5 MG TABLET PO PRN ×2 (03:40→21:15)
[2022-09-10 07:54] VITALS: BP 132/60
[2022-09-10] MEDS: DOCUSATE SODIUM 100 MG CAPSULE PO SCH ×2 (09:00→21:00)
[2022-09-10] MEDS: BusPIRone HCL 10 MG TABLET PO SCH ×3 (10:02→21:14)
[2022-09-10] MEDS: DULoxetine HCL 30 MG CAPSULE PO SCH (10:02)
[2022-09-10] MEDS: FAMOTIDINE 20 MG TABLET PO SCH ×2 (10:02→21:15)
[2022-09-10] MEDS: PHENAZOPYRIDINE HCL 100 MG TABLET PO SCH ×3 (10:02→21:14)
[2022-09-10] MEDS: GABAPENTIN 300 MG CAPSULE PO SCH ×3 (10:02→21:14)
[2022-09-10] MEDS: METOPROLOL SUCCINATE 50 MG ER TABLET PO SCH ×2 (10:02→21:14)
[2022-09-10] MEDS: APIXABAN 5 MG TABLET PO SCH ×2 (10:02→21:14)
[2022-09-10 15:36] VITALS: BP 145/86
[2022-09-10 21:13] VITALS: BP 138/80
[2022-09-11] MEDS: DIAZEPAM 5 MG TABLET PO PRN ×3 (06:08→22:03)
[2022-09-11] MEDS: DOCUSATE SODIUM 100 MG CAPSULE PO SCH ×2 (09:00→21:00)
[2022-09-11] MEDS: BusPIRone HCL 10 MG TABLET PO SCH ×3 (09:29→22:03)
[2022-09-11] MEDS: FAMOTIDINE 20 MG TABLET PO SCH ×2 (09:29→22:03)
[2022-09-11] MEDS: PHENAZOPYRIDINE HCL 100 MG TABLET PO SCH ×3 (09:29→22:03)
[2022-09-11] MEDS: DULoxetine HCL 30 MG CAPSULE PO SCH (09:29)
[2022-09-11] MEDS: GABAPENTIN 300 MG CAPSULE PO SCH ×3 (09:29→22:02)
[2022-09-11] MEDS: APIXABAN 5 MG TABLET PO SCH ×2 (09:29→22:02)
[2022-09-11] MEDS: METOPROLOL SUCCINATE 50 MG ER TABLET PO SCH ×2 (09:29→22:02)
[2022-09-11 11:38] VITALS: BP 111/70
[2022-09-11 17:26] VITALS: BP 112/82
[2022-09-11 21:30] VITALS: BP 99/56
[2022-09-12] MEDS: DIAZEPAM 5 MG TABLET PO PRN ×3 (06:16→22:29)
[2022-09-12 06:25] VITALS: BP 99/63
[2022-09-12 07:51] VITALS: BP 110/59
[2022-09-12] MEDS: DOCUSATE SODIUM 100 MG CAPSULE PO SCH ×2 (09:00→20:44)
[2022-09-12] MEDS: DULoxetine HCL 30 MG CAPSULE PO SCH (09:01)
[2022-09-12] MEDS: GABAPENTIN 300 MG CAPSULE PO SCH ×3 (09:02→20:42)
[2022-09-12] MEDS: PHENAZOPYRIDINE HCL 100 MG TABLET PO SCH ×3 (09:02→20:34)
[2022-09-12] MEDS: FAMOTIDINE 20 MG TABLET PO SCH ×2 (09:02→20:34)
[2022-09-12] MEDS: BusPIRone HCL 10 MG TABLET PO SCH ×3 (09:02→20:33)
[2022-09-12] MEDS: APIXABAN 5 MG TABLET PO SCH ×2 (09:02→20:34)
[2022-09-12] MEDS: METOPROLOL SUCCINATE 50 MG ER TABLET PO SCH ×2 (09:03→20:33)
[2022-09-12 16:01] VITALS: BP 112/61
[2022-09-12 20:00] VITALS: BP 92/62
[2022-09-13 01:16] VITALS: BP 126/76
[2022-09-13 04:00] VITALS: BP 107/73
[2022-09-13] MEDS: ACETAMINOPHEN 325 MG TABLET PO PRN (04:46)
[2022-09-13 07:44] VITALS: BP 104/72
[2022-09-13] MEDS: DIAZEPAM 5 MG TABLET PO PRN ×3 (09:17→23:26)
[2022-09-13] MEDS: APIXABAN 5 MG TABLET PO SCH ×2 (09:17→20:40)
[2022-09-13] MEDS: BusPIRone HCL 10 MG TABLET PO SCH ×3 (09:18→20:40)
[2022-09-13] MEDS: GABAPENTIN 300 MG CAPSULE PO SCH ×3 (09:18→20:40)
[2022-09-13] MEDS: METOPROLOL SUCCINATE 50 MG ER TABLET PO SCH ×2 (09:18→20:40)
[2022-09-13] MEDS: PHENAZOPYRIDINE HCL 100 MG TABLET PO SCH ×3 (09:19→20:40)
[2022-09-13] MEDS: DULoxetine HCL 30 MG CAPSULE PO SCH (09:19)
[2022-09-13] MEDS: DOCUSATE SODIUM 100 MG CAPSULE PO SCH ×2 (09:19→20:41)
[2022-09-13] MEDS: FAMOTIDINE 20 MG TABLET PO SCH ×2 (09:19→20:39)
[2022-09-13 11:26] VITALS: BP 126/74
[2022-09-13 16:34] VITALS: BP 106/75
[2022-09-13 19:43] VITALS: BP 108/61
[2022-09-14] MEDS: ACETAMINOPHEN 325 MG TABLET PO PRN ×2 (00:38→21:22)
[2022-09-14 01:03] VITALS: BP 118/76
[2022-09-14 04:34] VITALS: BP 116/71
[2022-09-14 06:53] LABS: APPEARANCE,URINE HAZY (CLEAR); GLUCOSE, URINE (UA) NEGATIVE (NEGATIVE); KETONES,URINE NEGATIVE (NEGATIVE); LEUKOCYTE ESTERASE ,URINE LARGE (NEGATIVE); NITRATE,URINE POSITIVE (NEGATIVE); OCCULT BLOOD,URINE MODERATE (NEGATIVE); PROTEIN,URINE 30-70 mg/dL (NEGATIVE); SPECIFIC GRAVITIY, URINE 1.031 (1.003-1.030)
[2022-09-14 06:54] LABS: BILIRUBIN,URINE SMALL (NEGATIVE)
[2022-09-14 07:08] LABS: BACTERIA,URINE Many /HPF (None Seen); WBC,URINE 51-100 /HPF (0-5)
[2022-09-14 07:23] VITALS: BP 96/59
[2022-09-14] MEDS: DOCUSATE SODIUM 100 MG CAPSULE PO SCH ×2 (09:00→21:00)
[2022-09-14] MEDS: METOPROLOL SUCCINATE 50 MG ER TABLET PO SCH ×2 (10:47→21:00)
[2022-09-14] MEDS: PHENAZOPYRIDINE HCL 100 MG TABLET PO SCH ×3 (10:47→21:00)
[2022-09-14] MEDS: BusPIRone HCL 10 MG TABLET PO SCH ×3 (10:47→21:00)
[2022-09-14] MEDS: DULoxetine HCL 30 MG CAPSULE PO SCH (10:47)
[2022-09-14] MEDS: FAMOTIDINE 20 MG TABLET PO SCH ×2 (10:47→21:00)
[2022-09-14] MEDS: APIXABAN 5 MG TABLET PO SCH ×2 (10:47→21:00)
[2022-09-14] MEDS: GABAPENTIN 300 MG CAPSULE PO SCH ×3 (10:48→21:00)
[2022-09-14] MEDS ORDERED: TraMADol HCL 50 MG TABLET PO ONE ×2 (11:15→17:00)
[2022-09-14] MEDS: DIAZEPAM 5 MG TABLET PO PRN (11:18)
[2022-09-14 12:03] VITALS: BP 132/72
[2022-09-14 16:29] VITALS: BP 134/85
[2022-09-14 19:44] VITALS: BP 116/75
[2022-09-15] MEDS: DIAZEPAM 5 MG TABLET PO PRN ×3 (00:38→21:00)
[2022-09-15 05:46] LABS: BASOPHILS % (AUTO) 0.6 % (0.0-2.0); EOSINOPHILS % (AUTO) 2.8 % (1.0-6.0); HEMATOCRIT 37.9 % (41-53); HEMOGLOBIN 12.9 g/dL (13.5-17.5); LYMPHOCYTES # (AUTO) 2.6 K/uL (1.0-4.8); LYMPHOCYTES % (AUTO) 27.7 % (22.0-44.0); MEAN CORPUSCULAR HEMOGLOBIN 27.3 pg (26.0-34.0); MEAN CORPUSCULAR VOLUME 80 fL (80-100); MONOCYTES # (AUTO) 0.8 K/uL (0.1-1.0); MONOCYTES % (AUTO) 9.1 % (2.0-9.0); NEUTROPHILS # (AUTO) 5.5 K/uL (1.8-7.7); NEUTROPHILS % (AUTO) 59.8 % (40.0-70.0); PLATELET COUNT (AUTO) 241 K/uL (150-450); RED BLOOD CELL COUNT(AUTO) 4.71 MIL/uL (4.50-5.90); RED CELL DISTRIBUTION WIDTH 14.4 % (11.5-14.5)
[2022-09-15 05:53] LABS: ANION GAP 6 mmol/L (8-16); CALCIUM, TOTAL 8.8 mg/dL (8.8-10.5); CARBON DIOXIDE 32 mmol/L (22-29); CHLORIDE 102 mmol/L (98-107); CREATININE 0.95 mg/dL (0.60-1.30); GLUCOSE,RANDOM 102 mg/dL (70-110); SODIUM SERUM 140 mmol/L (136-145); UREA NITROGEN, BLOOD 14 mg/dL (7-18)
[2022-09-15 05:57] LABS: GLOMERULAR FILTR. RATE CALC > 60 mL/min (>60)
[2022-09-15 06:42] VITALS: BP 92/57
[2022-09-15 07:35] VITALS: BP 107/53
[2022-09-15] MEDS: GABAPENTIN 300 MG CAPSULE PO SCH ×3 (08:53→21:03)
[2022-09-15] MEDS: APIXABAN 5 MG TABLET PO SCH ×2 (08:53→21:04)
[2022-09-15] MEDS: PHENAZOPYRIDINE HCL 100 MG TABLET PO SCH ×3 (08:54→21:00)
[2022-09-15] MEDS: DULoxetine HCL 30 MG CAPSULE PO SCH (08:54)
[2022-09-15] MEDS: METOPROLOL SUCCINATE 50 MG ER TABLET PO SCH ×2 (08:54→21:04)
[2022-09-15] MEDS: BusPIRone HCL 10 MG TABLET PO SCH ×3 (08:54→21:00)
[2022-09-15] MEDS: FAMOTIDINE 20 MG TABLET PO SCH ×2 (08:54→21:05)
[2022-09-15] MEDS: DOCUSATE SODIUM 100 MG CAPSULE PO SCH ×2 (08:54→21:00)
[2022-09-15 12:05] VITALS: BP 102/49
[2022-09-15 16:05] VITALS: BP 123/75
[2022-09-15 16:30] VITALS: BP 123/75
[2022-09-15] MEDS: ACETAMINOPHEN 325 MG TABLET PO PRN (17:00)
[2022-09-15 21:32] VITALS: BP 133/71
[2022-09-16] VITALS: BP 110/65
[2022-09-16 04:00] VITALS: BP 132/81
[2022-09-16] MEDS: DIAZEPAM 5 MG TABLET PO PRN ×2 (04:48→20:15)
[2022-09-16 08:08] VITALS: BP 133/81
[2022-09-16] MEDS: APIXABAN 5 MG TABLET PO SCH ×2 (08:41→20:16)
[2022-09-16] MEDS: GABAPENTIN 300 MG CAPSULE PO SCH ×3 (08:41→20:15)
[2022-09-16] MEDS: FAMOTIDINE 20 MG TABLET PO SCH ×2 (08:41→20:15)
[2022-09-16] MEDS: BusPIRone HCL 10 MG TABLET PO SCH ×3 (08:41→20:16)
[2022-09-16] MEDS: DOCUSATE SODIUM 100 MG CAPSULE PO SCH ×2 (08:42→20:15)
[2022-09-16] MEDS: METOPROLOL SUCCINATE 50 MG ER TABLET PO SCH ×2 (08:42→20:16)
[2022-09-16] MEDS: PHENAZOPYRIDINE HCL 100 MG TABLET PO SCH ×3 (08:42→20:18)
[2022-09-16] MEDS: DULoxetine HCL 30 MG CAPSULE PO SCH (08:42)
[2022-09-16] MEDS ORDERED: SODIUM CL IRRIG SOLN BOTTLE 250 ML IRRIG ONE (11:37)
[2022-09-16 11:45] VITALS: BP 124/65
[2022-09-16 20:16] VITALS: BP 127/65
[2022-09-17 04:00] VITALS: BP 121/66
[2022-09-17] MEDS: DIAZEPAM 5 MG TABLET PO PRN ×3 (05:01→20:38)
[2022-09-17 07:28] VITALS: BP 107/55
[2022-09-17] MEDS: FAMOTIDINE 20 MG TABLET PO SCH ×2 (09:16→20:37)
[2022-09-17] MEDS: DOCUSATE SODIUM 100 MG CAPSULE PO SCH ×2 (09:16→20:39)
[2022-09-17] MEDS: PHENAZOPYRIDINE HCL 100 MG TABLET PO SCH ×3 (09:16→20:39)
[2022-09-17] MEDS: DULoxetine HCL 30 MG CAPSULE PO SCH (09:17)
[2022-09-17] MEDS: BusPIRone HCL 10 MG TABLET PO SCH ×3 (09:17→20:38)
[2022-09-17] MEDS: APIXABAN 5 MG TABLET PO SCH ×2 (09:17→20:37)
[2022-09-17] MEDS: GABAPENTIN 300 MG CAPSULE PO SCH ×3 (09:22→20:38)
[2022-09-17] MEDS: METOPROLOL SUCCINATE 50 MG ER TABLET PO SCH ×2 (09:23→20:37)
[2022-09-17 11:32] VITALS: BP 114/59
[2022-09-17 19:35] VITALS: BP 153/73
[2022-09-17] MEDS: ACETAMINOPHEN 325 MG TABLET PO PRN (20:39)
[2022-09-17] MEDS ORDERED: KETOROLAC TROMETHAMINE 30 MG/ML VIAL IVP ONE (21:30)
[2022-09-18 05:52] VITALS: BP 101/54
[2022-09-18 08:01] VITALS: BP 105/60
[2022-09-18] MEDS: FAMOTIDINE 20 MG TABLET PO SCH ×2 (08:08→21:03)
[2022-09-18] MEDS: DIAZEPAM 5 MG TABLET PO PRN (08:08)
[2022-09-18] MEDS: PHENAZOPYRIDINE HCL 100 MG TABLET PO SCH ×3 (08:08→21:01)
[2022-09-18] MEDS: DOCUSATE SODIUM 100 MG CAPSULE PO SCH ×2 (08:08→21:00)
[2022-09-18] MEDS: DULoxetine HCL 30 MG CAPSULE PO SCH (08:09)
[2022-09-18] MEDS: GABAPENTIN 300 MG CAPSULE PO SCH ×3 (08:09→21:02)
[2022-09-18] MEDS: METOPROLOL SUCCINATE 50 MG ER TABLET PO SCH ×2 (08:09→21:02)
[2022-09-18] MEDS: BusPIRone HCL 10 MG TABLET PO SCH ×3 (08:09→21:03)
[2022-09-18] MEDS: APIXABAN 5 MG TABLET PO SCH ×2 (08:09→21:03)
[2022-09-18 11:18] VITALS: BP 148/75
[2022-09-18 20:00] VITALS: BP 105/50
[2022-09-18 23:46] VITALS: BP 120/76
[2022-09-18] MEDS: NITROGLYCERIN 0.4 MG SUBLINGUAL TABLET #25 SL PRN (23:51)
[2022-09-19 04:00] VITALS: BP 115/74
[2022-09-19] MEDS: PHENAZOPYRIDINE HCL 100 MG TABLET PO SCH ×3 (08:18→20:33)
[2022-09-19] MEDS: DULoxetine HCL 30 MG CAPSULE PO SCH (08:19)
[2022-09-19] MEDS: GABAPENTIN 300 MG CAPSULE PO SCH ×3 (08:19→20:33)
[2022-09-19] MEDS: DOCUSATE SODIUM 100 MG CAPSULE PO SCH ×2 (08:19→20:41)
[2022-09-19] MEDS: APIXABAN 5 MG TABLET PO SCH ×2 (08:19→20:33)
[2022-09-19] MEDS: FAMOTIDINE 20 MG TABLET PO SCH ×2 (08:19→20:36)
[2022-09-19] MEDS: METOPROLOL SUCCINATE 50 MG ER TABLET PO SCH ×2 (08:19→20:33)
[2022-09-19] MEDS: BusPIRone HCL 10 MG TABLET PO SCH ×3 (08:38→20:33)
[2022-09-19 16:06] VITALS: BP 111/49
[2022-09-19] MEDS: ACETAMINOPHEN 325 MG TABLET PO PRN (17:37)
[2022-09-19 19:39] VITALS: BP 127/49
[2022-09-19] MEDS: HydrOXYzine HCL 25 MG TABLET PO PRN (20:34)
[2022-09-20 00:07] VITALS: BP 113/64
[2022-09-20 04:53] VITALS: BP 104/62
[2022-09-20] MEDS: DULoxetine HCL 30 MG CAPSULE PO SCH (09:26)
[2022-09-20] MEDS: BusPIRone HCL 10 MG TABLET PO SCH ×3 (09:26→20:33)
[2022-09-20] MEDS: FAMOTIDINE 20 MG TABLET PO SCH ×2 (09:26→20:33)
[2022-09-20] MEDS: APIXABAN 5 MG TABLET PO SCH ×2 (09:26→20:33)
[2022-09-20] MEDS: GABAPENTIN 300 MG CAPSULE PO SCH ×3 (09:26→20:34)
[2022-09-20] MEDS: METOPROLOL SUCCINATE 50 MG ER TABLET PO SCH ×2 (09:27→20:33)
[2022-09-20] MEDS: PHENAZOPYRIDINE HCL 100 MG TABLET PO SCH ×3 (09:29→20:33)
[2022-09-20] MEDS: ACETAMINOPHEN 325 MG TABLET PO PRN ×2 (09:33→16:22)
[2022-09-20] MEDS: DOCUSATE SODIUM 100 MG CAPSULE PO SCH ×2 (09:40→20:34)
[2022-09-20 12:00] VITALS: BP 114/66
[2022-09-20 16:00] VITALS: BP 114/69
[2022-09-20] MEDS ORDERED: KETOROLAC TROMETHAMINE 15 MG/ML VIAL IM ONE (16:45)
[2022-09-20 17:13] LABS: APPEARANCE,URINE CLEAR (CLEAR); GLUCOSE, URINE (UA) NEGATIVE (NEGATIVE); KETONES,URINE NEGATIVE (NEGATIVE); LEUKOCYTE ESTERASE ,URINE NEGATIVE (NEGATIVE); OCCULT BLOOD,URINE TRACE (NEGATIVE); PROTEIN,URINE TRACE mg/dL (NEGATIVE); SPECIFIC GRAVITIY, URINE 1.029 (1.003-1.030)
[2022-09-20 17:54] LABS: BILIRUBIN,URINE SMALL (NEGATIVE)
[2022-09-20 18:07] LABS: NITRATE,URINE NEGATIVE (NEGATIVE)
[2022-09-20 18:08] LABS: RBC,URINE None Seen /HPF (0-2)
[2022-09-20 18:09] LABS: BACTERIA,URINE Rare /HPF (None Seen); CALCIUM OXALATE CRYSTALS,UR Few /LPF (None Seen)
[2022-09-20 20:33] VITALS: BP 115/68
[2022-09-21 06:16] VITALS: BP 105/60
[2022-09-21] MEDS: ACETAMINOPHEN 325 MG TABLET PO PRN ×2 (09:00→16:27)
[2022-09-21] MEDS: GABAPENTIN 300 MG CAPSULE PO SCH ×3 (09:00→20:35)
[2022-09-21] MEDS: APIXABAN 5 MG TABLET PO SCH ×2 (09:00→20:35)
[2022-09-21] MEDS: DULoxetine HCL 30 MG CAPSULE PO SCH (09:00)
[2022-09-21] MEDS: BusPIRone HCL 10 MG TABLET PO SCH ×3 (09:01→20:35)
[2022-09-21] MEDS: FAMOTIDINE 20 MG TABLET PO SCH ×2 (09:01→20:35)
[2022-09-21] MEDS: METOPROLOL SUCCINATE 50 MG ER TABLET PO SCH ×2 (09:01→20:35)
[2022-09-21] MEDS: DOCUSATE SODIUM 100 MG CAPSULE PO SCH ×2 (09:01→20:35)
[2022-09-21 11:44] VITALS: BP 91/56
[2022-09-21 16:15] VITALS: BP 116/75
[2022-09-21 20:00] VITALS: BP 114/68
[2022-09-22] VITALS: BP 121/66
[2022-09-22 04:00] VITALS: BP 119/70
[2022-09-22] MEDS: GABAPENTIN 300 MG CAPSULE PO SCH ×3 (09:49→21:08)
[2022-09-22] MEDS: FAMOTIDINE 20 MG TABLET PO SCH ×2 (09:49→21:08)
[2022-09-22] MEDS: DULoxetine HCL 30 MG CAPSULE PO SCH (09:50)
[2022-09-22] MEDS: DOCUSATE SODIUM 100 MG CAPSULE PO SCH ×2 (09:50→21:00)
[2022-09-22] MEDS: BusPIRone HCL 10 MG TABLET PO SCH ×3 (09:50→21:09)
[2022-09-22] MEDS: METOPROLOL SUCCINATE 50 MG ER TABLET PO SCH ×2 (09:50→21:09)
[2022-09-22] MEDS: APIXABAN 5 MG TABLET PO SCH ×2 (09:50→21:09)
[2022-09-22 12:00] VITALS: BP 101/55
[2022-09-22 16:00] VITALS: BP 126/80
[2022-09-22 20:00] VITALS: BP 112/70
[2022-09-23] VITALS: BP 123/78
[2022-09-23 04:00] VITALS: BP 111/62
[2022-09-23] MEDS: METOPROLOL SUCCINATE 50 MG ER TABLET PO SCH ×4 (09:00→20:55)
[2022-09-23 10:16] VITALS: BP 99/59
[2022-09-23] MEDS: BusPIRone HCL 10 MG TABLET PO SCH ×3 (10:17→20:20)
[2022-09-23] MEDS: DOCUSATE SODIUM 100 MG CAPSULE PO SCH ×2 (10:17→20:20)
[2022-09-23] MEDS: GABAPENTIN 300 MG CAPSULE PO SCH ×3 (10:17→20:20)
[2022-09-23] MEDS: APIXABAN 5 MG TABLET PO SCH ×2 (10:17→20:20)
[2022-09-23] MEDS: FAMOTIDINE 20 MG TABLET PO SCH ×2 (10:17→20:20)
[2022-09-23] MEDS: DULoxetine HCL 30 MG CAPSULE PO SCH (10:17)
[2022-09-23 18:13] VITALS: BP 102/60
[2022-09-23 20:09] VITALS: BP 96/59
[2022-09-23 21:12] VITALS: BP 119/64
[2022-09-24 07:23] VITALS: BP 104/65
[2022-09-24] MEDS: APIXABAN 5 MG TABLET PO SCH ×2 (10:26→20:32)
[2022-09-24] MEDS: DOCUSATE SODIUM 100 MG CAPSULE PO SCH ×2 (10:26→20:32)
[2022-09-24] MEDS: METOPROLOL SUCCINATE 50 MG ER TABLET PO SCH ×2 (10:26→21:00)
[2022-09-24] MEDS: FAMOTIDINE 20 MG TABLET PO SCH ×2 (10:27→20:32)
[2022-09-24] MEDS: DULoxetine HCL 30 MG CAPSULE PO SCH (10:27)
[2022-09-24] MEDS: BusPIRone HCL 10 MG TABLET PO SCH ×3 (10:27→20:32)
[2022-09-24] MEDS: GABAPENTIN 300 MG CAPSULE PO SCH ×3 (10:27→20:32)
[2022-09-24 15:39] VITALS: BP 95/59
[2022-09-24 20:00] VITALS: BP 99/59
[2022-09-24 23:29] VITALS: BP 118/72
[2022-09-25] MEDS: FAMOTIDINE 20 MG TABLET PO SCH ×2 (08:31→20:08)
[2022-09-25] MEDS: DOCUSATE SODIUM 100 MG CAPSULE PO SCH ×2 (08:31→20:09)
[2022-09-25] MEDS: BusPIRone HCL 10 MG TABLET PO SCH ×3 (08:32→20:09)
[2022-09-25] MEDS: METOPROLOL SUCCINATE 50 MG ER TABLET PO SCH ×3 (08:32→20:08)
[2022-09-25] MEDS: GABAPENTIN 300 MG CAPSULE PO SCH ×3 (08:32→20:07)
[2022-09-25] MEDS: APIXABAN 5 MG TABLET PO SCH ×2 (08:32→20:08)
[2022-09-25] MEDS: DULoxetine HCL 30 MG CAPSULE PO SCH (08:32)
[2022-09-25 15:52] VITALS: BP 122/73
[2022-09-25 20:00] VITALS: BP 123/75
[2022-09-26 00:07] VITALS: BP 103/72
[2022-09-26] MEDS: BusPIRone HCL 10 MG TABLET PO SCH ×3 (08:27→21:13)
[2022-09-26] MEDS: APIXABAN 5 MG TABLET PO SCH ×2 (08:28→21:12)
[2022-09-26] MEDS: FAMOTIDINE 20 MG TABLET PO SCH ×2 (08:28→21:12)
[2022-09-26] MEDS: GABAPENTIN 300 MG CAPSULE PO SCH ×3 (08:28→21:12)
[2022-09-26] MEDS: DULoxetine HCL 30 MG CAPSULE PO SCH (08:28)
[2022-09-26] MEDS: DOCUSATE SODIUM 100 MG CAPSULE PO SCH ×2 (08:28→21:00)
[2022-09-26] MEDS: METOPROLOL SUCCINATE 50 MG ER TABLET PO SCH ×2 (08:33→21:13)
[2022-09-26 08:34] VITALS: BP 100/60
[2022-09-26 12:23] VITALS: BP 100/65
[2022-09-26 20:00] VITALS: BP 105/62
[2022-09-26] MEDS: ACETAMINOPHEN 325 MG TABLET PO PRN (21:17)
[2022-09-27] VITALS: BP 102/61
[2022-09-27] MEDS: ACETAMINOPHEN 325 MG TABLET PO PRN (02:49)
[2022-09-27 04:00] VITALS: BP 112/64
[2022-09-27 08:00] VITALS: BP 98/50
[2022-09-27] MEDS: FAMOTIDINE 20 MG TABLET PO SCH ×2 (09:33→20:26)
[2022-09-27] MEDS: APIXABAN 5 MG TABLET PO SCH ×2 (09:33→20:26)
[2022-09-27] MEDS: GABAPENTIN 300 MG CAPSULE PO SCH ×3 (09:33→20:26)
[2022-09-27] MEDS: BusPIRone HCL 10 MG TABLET PO SCH ×3 (09:33→20:26)
[2022-09-27] MEDS: DOCUSATE SODIUM 100 MG CAPSULE PO SCH ×2 (09:33→20:30)
[2022-09-27] MEDS: METOPROLOL SUCCINATE 50 MG ER TABLET PO SCH ×2 (09:34→20:26)
[2022-09-27] MEDS: DULoxetine HCL 30 MG CAPSULE PO SCH (09:36)
[2022-09-27 12:00] VITALS: BP 100/64
[2022-09-27 16:00] VITALS: BP 114/76
[2022-09-27] MEDS: ONDANSETRON HCL 4 MG/2 ML VIAL IVP PRN (19:08)
[2022-09-27 19:30] VITALS: BP 123/75
[2022-09-28 00:30] VITALS: BP 108/63
[2022-09-28 04:15] VITALS: BP 112/64
[2022-09-28 07:23] VITALS: BP 103/60
[2022-09-28] MEDS: DOCUSATE SODIUM 100 MG CAPSULE PO SCH ×2 (09:00→20:12)
[2022-09-28] MEDS: DULoxetine HCL 30 MG CAPSULE PO SCH (09:08)
[2022-09-28] MEDS: GABAPENTIN 300 MG CAPSULE PO SCH ×3 (09:08→20:11)
[2022-09-28] MEDS: METOPROLOL SUCCINATE 50 MG ER TABLET PO SCH ×2 (09:08→20:11)
[2022-09-28] MEDS: BusPIRone HCL 10 MG TABLET PO SCH ×3 (09:08→20:11)
[2022-09-28] MEDS: FAMOTIDINE 20 MG TABLET PO SCH ×2 (09:08→20:11)
[2022-09-28] MEDS: APIXABAN 5 MG TABLET PO SCH ×2 (09:09→20:11)
[2022-09-28 11:36] VITALS: BP 102/60
[2022-09-28 15:17] VITALS: BP 114/73
[2022-09-28] MEDS: ONDANSETRON HCL 4 MG/2 ML VIAL IVP PRN (18:23)
[2022-09-28 20:17] VITALS: BP 108/57
[2022-09-29 01:00] VITALS: BP 105/60
[2022-09-29 07:48] VITALS: BP 100/63
[2022-09-29] MEDS: DOCUSATE SODIUM 100 MG CAPSULE PO SCH ×2 (09:00→20:53)
[2022-09-29] MEDS: BusPIRone HCL 10 MG TABLET PO SCH ×3 (09:20→20:53)
[2022-09-29] MEDS: DULoxetine HCL 30 MG CAPSULE PO SCH (09:20)
[2022-09-29] MEDS: FAMOTIDINE 20 MG TABLET PO SCH ×2 (09:20→20:53)
[2022-09-29] MEDS: GABAPENTIN 300 MG CAPSULE PO SCH ×3 (09:20→20:53)
[2022-09-29] MEDS: APIXABAN 5 MG TABLET PO SCH ×2 (09:20→20:53)
[2022-09-29] MEDS: METOPROLOL SUCCINATE 50 MG ER TABLET PO SCH ×2 (09:20→20:53)
[2022-09-29 11:15] VITALS: BP 110/63
[2022-09-29] MEDS: ONDANSETRON HCL 4 MG/2 ML VIAL IVP PRN (14:55)
[2022-09-29 15:58] VITALS: BP 110/68
[2022-09-29 20:20] VITALS: BP 99/54
[2022-09-30 06:13] VITALS: BP 108/60
[2022-09-30 08:00] VITALS: BP 113/59
[2022-09-30] MEDS: DULoxetine HCL 30 MG CAPSULE PO SCH (08:37)
[2022-09-30] MEDS: FAMOTIDINE 20 MG TABLET PO SCH ×2 (08:37→20:05)
[2022-09-30] MEDS: APIXABAN 5 MG TABLET PO SCH ×2 (08:38→20:05)
[2022-09-30] MEDS: DOCUSATE SODIUM 100 MG CAPSULE PO SCH ×2 (08:38→20:04)
[2022-09-30] MEDS: BusPIRone HCL 10 MG TABLET PO SCH ×3 (08:38→20:05)
[2022-09-30] MEDS: METOPROLOL SUCCINATE 50 MG ER TABLET PO SCH ×2 (08:38→20:04)
[2022-09-30] MEDS: GABAPENTIN 300 MG CAPSULE PO SCH ×3 (08:38→20:04)
[2022-09-30 12:21] VITALS: BP 108/63
[2022-09-30 15:39] VITALS: BP 98/59
[2022-09-30] MEDS: ONDANSETRON HCL 4 MG/2 ML VIAL IVP PRN (17:22)
[2022-09-30 20:09] VITALS: BP 117/64
[2022-10-01 00:13] VITALS: BP 102/62
[2022-10-01] MEDS: DOCUSATE SODIUM 100 MG CAPSULE PO SCH ×2 (09:00→20:07)
[2022-10-01] MEDS: DULoxetine HCL 30 MG CAPSULE PO SCH (09:19)
[2022-10-01] MEDS: FAMOTIDINE 20 MG TABLET PO SCH ×2 (09:21→20:07)
[2022-10-01] MEDS: METOPROLOL SUCCINATE 50 MG ER TABLET PO SCH ×2 (09:21→20:06)
[2022-10-01] MEDS: APIXABAN 5 MG TABLET PO SCH ×2 (09:22→20:06)
[2022-10-01] MEDS: BusPIRone HCL 10 MG TABLET PO SCH ×3 (09:22→20:07)
[2022-10-01] MEDS: GABAPENTIN 300 MG CAPSULE PO SCH ×3 (09:22→20:06)
[2022-10-01 11:08] VITALS: BP 103/53
[2022-10-01 16:17] VITALS: BP 100/58
[2022-10-01 19:53] VITALS: BP 97/63
[2022-10-02 00:08] VITALS: BP 119/64
[2022-10-02 05:18] VITALS: BP 102/58
[2022-10-02 06:56] LABS: ALANINE AMINOTRANSFERASE 36 U/L (12-78); ALBUMIN 3.4 g/dL (3.4-5.0); ALKALINE PHOSPHATASE 90 U/L (46-116); ANION GAP 8 mmol/L (8-16); ASPARTATE AMINOTRANSFERASE 20 U/L (15-37); BILIRUBIN,TOTAL 0.2 mg/dL (0.1-1.0); CARBON DIOXIDE 29 mmol/L (22-29); CHLORIDE 103 mmol/L (98-107); CREATININE 0.86 mg/dL (0.60-1.30); GLUCOSE,RANDOM 82 mg/dL (70-110); POTASSIUM 3.8 mmol/L (3.5-5.1); SODIUM SERUM 140 mmol/L (136-145); TOTAL PROTEIN, SERUM 7.5 g/dL (6.4-8.2); UREA NITROGEN, BLOOD 15 mg/dL (7-18)
[2022-10-02 07:01] LABS: BASOPHILS % (AUTO) 0.7 % (0.0-2.0); EOSINOPHILS % (AUTO) 3.4 % (1.0-6.0); HEMATOCRIT 37.8 % (41-53); HEMOGLOBIN 12.8 g/dL (13.5-17.5); LYMPHOCYTES # (AUTO) 2.4 K/uL (1.0-4.8); LYMPHOCYTES % (AUTO) 25.8 % (22.0-44.0); MEAN CORPUSCULAR HEMOGLOBIN 27.5 pg (26.0-34.0); MEAN CORPUSCULAR VOLUME 81 fL (80-100); MONOCYTES # (AUTO) 1.2 K/uL (0.1-1.0); MONOCYTES % (AUTO) 13.2 % (2.0-9.0); NEUTROPHILS # (AUTO) 5.3 K/uL (1.8-7.7); NEUTROPHILS % (AUTO) 56.9 % (40.0-70.0); PLATELET COUNT (AUTO) 243 K/uL (150-450); RED BLOOD CELL COUNT(AUTO) 4.67 MIL/uL (4.50-5.90); RED CELL DISTRIBUTION WIDTH 14.4 % (11.5-14.5)
[2022-10-02 07:05] LABS: GLOMERULAR FILTR. RATE CALC > 60 mL/min (>60)
[2022-10-02] MEDS: DOCUSATE SODIUM 100 MG CAPSULE PO SCH ×2 (09:00→21:00)
[2022-10-02] MEDS: DULoxetine HCL 30 MG CAPSULE PO SCH (10:13)
[2022-10-02] MEDS: METOPROLOL SUCCINATE 50 MG ER TABLET PO SCH ×2 (10:13→21:16)
[2022-10-02] MEDS: APIXABAN 5 MG TABLET PO SCH ×2 (10:14→21:16)
[2022-10-02] MEDS: GABAPENTIN 300 MG CAPSULE PO SCH ×3 (10:14→21:16)
[2022-10-02] MEDS: BusPIRone HCL 10 MG TABLET PO SCH ×3 (10:14→21:16)
[2022-10-02] MEDS: FAMOTIDINE 20 MG TABLET PO SCH ×2 (10:14→21:16)
[2022-10-02 15:01] VITALS: BP 118/69
[2022-10-02 20:12] VITALS: BP 122/74
[2022-10-03 00:02] VITALS: BP 103/55
[2022-10-03] MEDS: DULoxetine HCL 30 MG CAPSULE PO SCH (08:42)
[2022-10-03] MEDS: METOPROLOL SUCCINATE 50 MG ER TABLET PO SCH ×3 (08:43→20:31)
[2022-10-03] MEDS: DOCUSATE SODIUM 100 MG CAPSULE PO SCH ×2 (08:44→20:35)
[2022-10-03] MEDS: FAMOTIDINE 20 MG TABLET PO SCH ×2 (08:44→20:31)
[2022-10-03] MEDS: BusPIRone HCL 10 MG TABLET PO SCH ×3 (08:44→20:31)
[2022-10-03] MEDS: APIXABAN 5 MG TABLET PO SCH ×2 (08:44→20:31)
[2022-10-03] MEDS: GABAPENTIN 300 MG CAPSULE PO SCH ×3 (08:45→20:31)
[2022-10-03 08:54] VITALS: BP 105/63
[2022-10-03 11:33] VITALS: BP 113/58
[2022-10-03 18:15] VITALS: BP 110/62
[2022-10-03 20:02] VITALS: BP 99/58
[2022-10-03 23:38] VITALS: BP 114/69
[2022-10-04 05:33] VITALS: BP 119/71
[2022-10-04 08:15] VITALS: BP 114/74
[2022-10-04] MEDS: DOCUSATE SODIUM 100 MG CAPSULE PO SCH ×2 (09:00→21:00)
[2022-10-04] MEDS: APIXABAN 5 MG TABLET PO SCH ×2 (09:29→21:25)
[2022-10-04] MEDS: BusPIRone HCL 10 MG TABLET PO SCH ×3 (09:29→21:25)
[2022-10-04] MEDS: FAMOTIDINE 20 MG TABLET PO SCH ×2 (09:30→21:25)
[2022-10-04] MEDS: METOPROLOL SUCCINATE 50 MG ER TABLET PO SCH ×2 (09:30→21:26)
[2022-10-04] MEDS: DULoxetine HCL 30 MG CAPSULE PO SCH (09:33)
[2022-10-04] MEDS: GABAPENTIN 300 MG CAPSULE PO SCH ×3 (09:33→21:25)
[2022-10-04 15:28] VITALS: BP 100/64
[2022-10-04 19:37] VITALS: BP 126/83
[2022-10-04 21:29] VITALS: BP 127/67
[2022-10-05 04:43] VITALS: BP 109/64
[2022-10-05 07:48] VITALS: BP 101/75
[2022-10-05 08:07] LABS: COVID AG,FIA SOURCE NASOPHARYNGEAL
[2022-10-05] MEDS: DOCUSATE SODIUM 100 MG CAPSULE PO SCH ×2 (08:13→20:52)
[2022-10-05] MEDS: GABAPENTIN 300 MG CAPSULE PO SCH ×3 (08:14→20:50)
[2022-10-05] MEDS: FAMOTIDINE 20 MG TABLET PO SCH ×2 (08:14→20:51)
[2022-10-05] MEDS: APIXABAN 5 MG TABLET PO SCH ×2 (08:14→20:51)
[2022-10-05] MEDS: DULoxetine HCL 30 MG CAPSULE PO SCH (08:14)
[2022-10-05] MEDS: BusPIRone HCL 10 MG TABLET PO SCH ×3 (08:15→20:49)
[2022-10-05] MEDS: METOPROLOL SUCCINATE 50 MG ER TABLET PO SCH ×2 (08:15→20:51)
[2022-10-05] MEDS: ONDANSETRON HCL 4 MG/2 ML VIAL IVP PRN (11:10)
[2022-10-05 11:27] VITALS: BP 130/66
[2022-10-05 12:00] VITALS: BP 130/66
[2022-10-05 19:31] VITALS: BP 103/60
[2022-10-06 00:46] VITALS: BP 111/65
[2022-10-06 04:35] VITALS: BP 115/69
[2022-10-06] MEDS: ONDANSETRON HCL 4 MG/2 ML VIAL IVP PRN (07:08)
[2022-10-06 08:09] VITALS: BP 106/70
[2022-10-06] MEDS: DOCUSATE SODIUM 100 MG CAPSULE PO SCH ×2 (09:00→20:02)
[2022-10-06] MEDS: BusPIRone HCL 10 MG TABLET PO SCH ×3 (09:12→20:01)
[2022-10-06] MEDS: METOPROLOL SUCCINATE 50 MG ER TABLET PO SCH ×2 (09:13→20:01)
[2022-10-06] MEDS: FAMOTIDINE 20 MG TABLET PO SCH ×2 (09:13→20:01)
[2022-10-06] MEDS: DULoxetine HCL 30 MG CAPSULE PO SCH (09:13)
[2022-10-06] MEDS: GABAPENTIN 300 MG CAPSULE PO SCH ×3 (09:13→20:01)
[2022-10-06] MEDS: APIXABAN 5 MG TABLET PO SCH ×2 (09:13→20:01)
[2022-10-06 11:25] VITALS: BP 119/72
[2022-10-06 15:54] VITALS: BP 103/64
[2022-10-07 00:42] VITALS: BP 100/69
[2022-10-07 04:54] VITALS: BP 93/58
[2022-10-07 07:53] VITALS: BP 105/65
[2022-10-07] MEDS: BusPIRone HCL 10 MG TABLET PO SCH ×3 (08:59→20:04)
[2022-10-07] MEDS: GABAPENTIN 300 MG CAPSULE PO SCH ×3 (08:59→20:04)
[2022-10-07] MEDS: DULoxetine HCL 30 MG CAPSULE PO SCH (08:59)
[2022-10-07] MEDS: DOCUSATE SODIUM 100 MG CAPSULE PO SCH ×2 (08:59→20:04)
[2022-10-07] MEDS: FAMOTIDINE 20 MG TABLET PO SCH ×2 (08:59→20:03)
[2022-10-07] MEDS: APIXABAN 5 MG TABLET PO SCH ×2 (08:59→20:03)
[2022-10-07] MEDS: METOPROLOL SUCCINATE 50 MG ER TABLET PO SCH ×2 (09:01→20:03)
[2022-10-07 11:32] VITALS: BP 102/67
[2022-10-07 20:05] VITALS: BP 118/78
[2022-10-08 04:13] VITALS: BP 106/69
[2022-10-08 07:45] VITALS: BP 93/59
[2022-10-08] MEDS: APIXABAN 5 MG TABLET PO SCH ×2 (08:50→20:52)
[2022-10-08] MEDS: FAMOTIDINE 20 MG TABLET PO SCH ×2 (08:50→20:52)
[2022-10-08] MEDS: BusPIRone HCL 10 MG TABLET PO SCH ×3 (08:51→20:53)
[2022-10-08] MEDS: DOCUSATE SODIUM 100 MG CAPSULE PO SCH ×2 (08:51→20:52)
[2022-10-08] MEDS: GABAPENTIN 300 MG CAPSULE PO SCH ×3 (08:51→20:52)
[2022-10-08] MEDS: DULoxetine HCL 30 MG CAPSULE PO SCH (08:52)
[2022-10-08] MEDS: METOPROLOL SUCCINATE 50 MG ER TABLET PO SCH ×2 (08:53→20:53)
[2022-10-08 11:31] VITALS: BP 98/67
[2022-10-08] MEDS ORDERED: PROPOFOL 1% 20 ML VIAL IVP ONE (12:00)
[2022-10-08] MEDS ORDERED: ROCURONIUM BROMIDE 10 MG/ML 5 ML VIAL IVP ONE (12:00)
[2022-10-08] MEDS ORDERED: ONDANSETRON HCL 4 MG/2 ML VIAL IVP ONE (12:00)
[2022-10-08] MEDS ORDERED: DEXAMETHASONE SOD PHOS 4 MG/ML VIAL IVP ONE (12:00)
[2022-10-08] MEDS: NYSTATIN 30 GM CREAM TP SCH ×2 (12:59→20:54)
[2022-10-08 15:37] VITALS: BP 99/65
[2022-10-08] MEDS ORDERED: MORPHINE SULFATE 2 MG/ML SYRINGE IVP ONE (17:45)
[2022-10-08] MEDS ORDERED: CIPROFLOXACIN 400 MG/D5% WATER 200 ML IV ONE (18:15)
[2022-10-08] MEDS ORDERED: HYDROmorphone HCL 2 MG/ML SYRINGE IVP PRN (18:45)
[2022-10-08] MEDS ORDERED: SODIUM CL IRRIG SOLN BAG 6,000 ML IRRIG ONE (18:49)
[2022-10-08] MEDS ORDERED: RINGERS SOLUTION,LACTATED 1,000 ML IV ONE (19:10)
[2022-10-08] MEDS ORDERED: FentaNYL CITRATE PF 100 MCG/2 ML VIAL ONE ×2 (19:53→20:19)
[2022-10-08] MEDS: FentaNYL CITRATE PF 100 MCG/2 ML VIAL IVP PRN ×4 (20:01→20:27)
[2022-10-08] MEDS: OXYGEN THERAPY IH SCH (20:52)
[2022-10-08] MEDS ORDERED: SODIUM CHLORIDE 0.9% 100 ML ONE (20:59)
[2022-10-08 22:20] VITALS: BP 99/61
[2022-10-08] MEDS: PHENAZOPYRIDINE HCL 100 MG TABLET PO SCH (22:25)
[2022-10-08] MEDS ORDERED: MethylPREDNISolone SOD SUCC 40 MG/ML VIAL IVP ONE (22:45)
[2022-10-08] MEDS ORDERED: DiphenhydrAMINE/ZINC ACET 30 GM CREAM TP ONE (23:00)
[2022-10-09] MEDS: ACETAMINOPHEN 325 MG TABLET PO PRN ×3 (02:41→22:03)
[2022-10-09 08:21] VITALS: BP 121/81
[2022-10-09] MEDS: FAMOTIDINE 20 MG TABLET PO SCH ×2 (08:41→22:03)
[2022-10-09] MEDS: PHENAZOPYRIDINE HCL 100 MG TABLET PO SCH ×2 (08:41→22:03)
[2022-10-09] MEDS: APIXABAN 5 MG TABLET PO SCH ×2 (08:41→22:03)
[2022-10-09] MEDS: GABAPENTIN 300 MG CAPSULE PO SCH ×3 (08:41→22:03)
[2022-10-09] MEDS: BusPIRone HCL 10 MG TABLET PO SCH ×3 (08:42→22:03)
[2022-10-09] MEDS: DOCUSATE SODIUM 100 MG CAPSULE PO SCH ×2 (08:42→22:03)
[2022-10-09] MEDS: METOPROLOL SUCCINATE 50 MG ER TABLET PO SCH ×2 (08:43→22:03)
[2022-10-09] MEDS: DULoxetine HCL 30 MG CAPSULE PO SCH (08:43)
[2022-10-09] MEDS: NYSTATIN 30 GM CREAM TP SCH ×2 (08:48→21:00)
[2022-10-09] MEDS: OXYGEN THERAPY IH SCH (08:49)
[2022-10-09 11:22] VITALS: BP 107/63
[2022-10-09] MEDS ORDERED: FentaNYL CITRATE PF 100 MCG/2 ML VIAL IVP ONE (12:00)
[2022-10-09] MEDS ORDERED: MIDAZOLAM HCL 2 MG/2 ML VIAL IVP ONE (12:00)
[2022-10-09 16:00] VITALS: BP 116/70
[2022-10-09 20:04] VITALS: BP 124/71
[2022-10-09] MEDS ORDERED: KETOROLAC TROMETHAMINE 30 MG/ML VIAL IVP ONE (23:00)
[2022-10-09 23:58] VITALS: BP 105/57
[2022-10-10 04:53] VITALS: BP 103/50
[2022-10-10 07:52] VITALS: BP 95/62
[2022-10-10] MEDS: OXYGEN THERAPY IH SCH ×2 (08:00→09:37)
[2022-10-10] MEDS: NYSTATIN 30 GM CREAM TP SCH ×2 (09:00→21:00)
[2022-10-10] MEDS: DOCUSATE SODIUM 100 MG CAPSULE PO SCH ×2 (09:00→21:00)
[2022-10-10] MEDS: APIXABAN 5 MG TABLET PO SCH ×2 (09:18→21:25)
[2022-10-10] MEDS: GABAPENTIN 300 MG CAPSULE PO SCH ×3 (09:18→21:24)
[2022-10-10] MEDS: PHENAZOPYRIDINE HCL 100 MG TABLET PO SCH ×2 (09:18→21:24)
[2022-10-10] MEDS: FAMOTIDINE 20 MG TABLET PO SCH ×2 (09:19→21:24)
[2022-10-10] MEDS: BusPIRone HCL 10 MG TABLET PO SCH ×3 (09:19→21:24)
[2022-10-10] MEDS: METOPROLOL SUCCINATE 50 MG ER TABLET PO SCH ×2 (09:19→21:24)
[2022-10-10] MEDS: DULoxetine HCL 30 MG CAPSULE PO SCH (09:23)
[2022-10-10 11:19] VITALS: BP 100/63
[2022-10-10 16:08] VITALS: BP 96/57
[2022-10-10] MEDS ORDERED: KETOROLAC TROMETHAMINE 30 MG/ML VIAL IVP ONE (20:45)
[2022-10-10 20:53] VITALS: BP 112/68
[2022-10-10] MEDS: ACETAMINOPHEN 325 MG TABLET PO PRN (21:24)
[2022-10-11 04:00] VITALS: BP 110/71
[2022-10-11 07:47] LABS: ANION GAP 9 mmol/L (8-16); CALCIUM, TOTAL 8.8 mg/dL (8.8-10.5); CARBON DIOXIDE 28 mmol/L (22-29); CHLORIDE 103 mmol/L (98-107); CREATININE 1.02 mg/dL (0.60-1.30); GLUCOSE,RANDOM 99 mg/dL (70-110); POTASSIUM 4.4 mmol/L (3.5-5.1); SODIUM SERUM 140 mmol/L (136-145); UREA NITROGEN, BLOOD 22 mg/dL (7-18)
[2022-10-11 07:48] LABS: GLOMERULAR FILTR. RATE CALC > 60 mL/min (>60)
[2022-10-11] MEDS: OXYGEN THERAPY IH SCH (08:00)
[2022-10-11 08:34] VITALS: BP 102/68
[2022-10-11] MEDS: GABAPENTIN 300 MG CAPSULE PO SCH ×3 (08:35→22:00)
[2022-10-11] MEDS: DULoxetine HCL 30 MG CAPSULE PO SCH (08:36)
[2022-10-11] MEDS: METOPROLOL SUCCINATE 50 MG ER TABLET PO SCH ×2 (08:36→22:00)
[2022-10-11] MEDS: APIXABAN 5 MG TABLET PO SCH ×2 (08:36→22:01)
[2022-10-11] MEDS: FAMOTIDINE 20 MG TABLET PO SCH ×2 (08:36→22:01)
[2022-10-11] MEDS: BusPIRone HCL 10 MG TABLET PO SCH ×3 (08:37→22:01)
[2022-10-11] MEDS: DOCUSATE SODIUM 100 MG CAPSULE PO SCH ×2 (08:38→21:00)
[2022-10-11] MEDS: NYSTATIN 30 GM CREAM TP SCH ×2 (08:39→21:00)
[2022-10-11 14:57] VITALS: BP 101/68
[2022-10-11 20:35] VITALS: BP 117/74
[2022-10-11] MEDS ORDERED: KETOROLAC TROMETHAMINE 30 MG/ML VIAL IVP ONE (20:45)
[2022-10-12 01:00] VITALS: BP 112/69
[2022-10-12] MEDS ORDERED: RINGERS SOLUTION,LACTATED 1,000 ML IV ONE (06:00)
[2022-10-12 06:19] VITALS: BP 106/66
[2022-10-12] MEDS ORDERED: ETHYL ALCOHOL 62% ANTISEPTIC NASAL SANITIZER 0.6 ML AMPUL NASAL ONE (06:45)
[2022-10-12] MEDS ORDERED: SODIUM CL IRRIG SOLN BAG 3,000 ML IRRIG ONE (07:11)
[2022-10-12] MEDS ORDERED: SODIUM CHLORIDE 0.9% 1,000 ML IV ONE (07:15)
[2022-10-12] MEDS ORDERED: WATER FOR IRRIGATION STERILE IRRIG ONE (07:23)
[2022-10-12] MEDS ORDERED: WATER FOR IRRIGATION,STERILE 3,000 ML IRRIG ONE (07:51)
[2022-10-12] MEDS: OXYGEN THERAPY IH SCH ×3 (08:00→20:00)
[2022-10-12] MEDS ORDERED: FentaNYL CITRATE PF 100 MCG/2 ML VIAL ONE (08:54)
[2022-10-12] MEDS: FentaNYL CITRATE PF 100 MCG/2 ML VIAL IVP PRN ×2 (08:59→09:06)
[2022-10-12] MEDS: DOCUSATE SODIUM 100 MG CAPSULE PO SCH ×2 (09:00→20:25)
[2022-10-12 09:50] VITALS: BP 117/66
[2022-10-12] MEDS: ACETAMINOPHEN 325 MG TABLET PO PRN ×2 (09:53→14:51)
[2022-10-12] MEDS: DULoxetine HCL 30 MG CAPSULE PO SCH (09:53)
[2022-10-12] MEDS: GABAPENTIN 300 MG CAPSULE PO SCH ×3 (09:53→20:18)
[2022-10-12] MEDS: BusPIRone HCL 10 MG TABLET PO SCH ×3 (09:54→20:18)
[2022-10-12] MEDS: METOPROLOL SUCCINATE 50 MG ER TABLET PO SCH ×2 (09:54→20:18)
[2022-10-12] MEDS: FAMOTIDINE 20 MG TABLET PO SCH ×2 (09:54→20:18)
[2022-10-12] MEDS: APIXABAN 5 MG TABLET PO SCH ×2 (09:54→20:18)
[2022-10-12] MEDS: NYSTATIN 30 GM CREAM TP SCH ×2 (09:55→20:25)
[2022-10-12] MEDS ORDERED: OxyCODONE HCL/ACETAMINOPHEN 5-325 MG TABLET PO ONE ×2 (10:30→14:45)
[2022-10-12] MEDS: TraMADol HCL 50 MG TABLET PO PRN ×2 (15:25→23:29)
[2022-10-12 15:29] VITALS: BP 106/69
[2022-10-12 19:34] VITALS: BP 119/63
[2022-10-12 23:52] VITALS: BP 106/63
[2022-10-13 04:05] VITALS: BP 106/60
[2022-10-13] MEDS ORDERED: ROCURONIUM BROMIDE 10 MG/ML 5 ML VIAL IVP ONE (06:21)
[2022-10-13] MEDS ORDERED: LIDOCAINE/PF 2% 5 ML VIAL IM ONE (06:21)
[2022-10-13] MEDS ORDERED: PROPOFOL 1% 20 ML VIAL IVP ONE (06:21)
[2022-10-13] MEDS ORDERED: NEOSTIGMINE METHYLSULFATE 1 MG/ML 10 ML VIAL IVP ONE (06:21)
[2022-10-13 08:00] VITALS: BP 100/52
[2022-10-13] MEDS: OXYGEN THERAPY IH SCH ×4 (08:00→20:00)
[2022-10-13] MEDS: METOPROLOL SUCCINATE 50 MG ER TABLET PO SCH ×2 (09:00→20:30)
[2022-10-13] MEDS: BusPIRone HCL 10 MG TABLET PO SCH ×3 (09:09→20:30)
[2022-10-13] MEDS: NYSTATIN 30 GM CREAM TP SCH ×2 (09:10→20:31)
[2022-10-13] MEDS: DULoxetine HCL 30 MG CAPSULE PO SCH (09:11)
[2022-10-13] MEDS: GABAPENTIN 300 MG CAPSULE PO SCH ×3 (09:12→20:30)
[2022-10-13] MEDS: APIXABAN 5 MG TABLET PO SCH ×2 (09:12→20:30)
[2022-10-13] MEDS: TraMADol HCL 50 MG TABLET PO PRN ×2 (09:12→17:18)
[2022-10-13] MEDS: DOCUSATE SODIUM 100 MG CAPSULE PO SCH ×2 (09:12→20:30)
[2022-10-13] MEDS: FAMOTIDINE 20 MG TABLET PO SCH ×2 (09:12→20:30)
[2022-10-13 11:16] VITALS: BP 98/57
[2022-10-13 15:11] VITALS: BP 105/65
[2022-10-13 20:00] VITALS: BP 118/74
[2022-10-14] VITALS (7 sets, daily range): BP systolic 90–123; BP diastolic 55–74
[2022-10-14] MEDS: TraMADol HCL 50 MG TABLET PO PRN ×3 (01:28→17:12)
[2022-10-14] MEDS: OXYGEN THERAPY IH SCH ×4 (08:00→20:00)
[2022-10-14] MEDS: BusPIRone HCL 10 MG TABLET PO SCH ×3 (08:44→21:04)
[2022-10-14] MEDS: GABAPENTIN 300 MG CAPSULE PO SCH ×3 (08:44→21:04)
[2022-10-14] MEDS: FAMOTIDINE 20 MG TABLET PO SCH ×2 (08:45→21:04)
[2022-10-14] MEDS: DULoxetine HCL 30 MG CAPSULE PO SCH (08:45)
[2022-10-14] MEDS: DOCUSATE SODIUM 100 MG CAPSULE PO SCH ×2 (08:45→21:00)
[2022-10-14] MEDS: APIXABAN 5 MG TABLET PO SCH ×2 (08:45→21:03)
[2022-10-14] MEDS: METOPROLOL SUCCINATE 50 MG ER TABLET PO SCH ×2 (08:53→21:04)
[2022-10-14] MEDS: NYSTATIN 30 GM CREAM TP SCH ×2 (08:56→21:00)
[2022-10-15] MEDS: TraMADol HCL 50 MG TABLET PO PRN ×3 (02:03→21:34)
[2022-10-15 07:21] VITALS: BP 103/60
[2022-10-15] MEDS: OXYGEN THERAPY IH SCH ×3 (08:00→20:00)
[2022-10-15] MEDS: FAMOTIDINE 20 MG TABLET PO SCH ×2 (08:36→21:34)
[2022-10-15] MEDS: GABAPENTIN 300 MG CAPSULE PO SCH ×3 (08:36→21:34)
[2022-10-15] MEDS: DULoxetine HCL 30 MG CAPSULE PO SCH (08:37)
[2022-10-15] MEDS: APIXABAN 5 MG TABLET PO SCH ×2 (08:37→21:34)
[2022-10-15] MEDS: DOCUSATE SODIUM 100 MG CAPSULE PO SCH ×2 (08:37→21:00)
[2022-10-15] MEDS: BusPIRone HCL 10 MG TABLET PO SCH ×3 (08:38→21:34)
[2022-10-15] MEDS: METOPROLOL SUCCINATE 50 MG ER TABLET PO SCH ×2 (09:00→21:34)
[2022-10-15] MEDS: NYSTATIN 30 GM CREAM TP SCH ×2 (09:00→21:00)
[2022-10-15 11:57] VITALS: BP 96/46
[2022-10-15 13:30] VITALS: BP 105/63
[2022-10-15 15:52] VITALS: BP 121/70
[2022-10-15 20:00] VITALS: BP 116/69
[2022-10-16] VITALS: BP 107/72
[2022-10-16 04:00] VITALS: BP 105/70
[2022-10-16] MEDS: TraMADol HCL 50 MG TABLET PO PRN ×3 (05:47→23:28)
[2022-10-16] MEDS: OXYGEN THERAPY IH SCH ×4 (08:00→20:00)
[2022-10-16 08:03] VITALS: BP 98/55
[2022-10-16] MEDS: DULoxetine HCL 30 MG CAPSULE PO SCH (08:16)
[2022-10-16] MEDS: FAMOTIDINE 20 MG TABLET PO SCH ×2 (08:16→20:42)
[2022-10-16] MEDS: DOCUSATE SODIUM 100 MG CAPSULE PO SCH ×2 (08:16→20:42)
[2022-10-16] MEDS: METOPROLOL SUCCINATE 50 MG ER TABLET PO SCH ×2 (08:16→20:41)
[2022-10-16] MEDS: APIXABAN 5 MG TABLET PO SCH ×2 (08:17→20:41)
[2022-10-16] MEDS: BusPIRone HCL 10 MG TABLET PO SCH ×3 (08:17→20:42)
[2022-10-16] MEDS: GABAPENTIN 300 MG CAPSULE PO SCH ×3 (08:17→20:41)
[2022-10-16] MEDS: NYSTATIN 30 GM CREAM TP SCH ×2 (09:00→20:42)
[2022-10-16 12:01] VITALS: BP 105/56
[2022-10-16 16:22] VITALS: BP 114/75
[2022-10-16 20:00] VITALS: BP 111/69
[2022-10-17 04:00] VITALS: BP 112/65
[2022-10-17 07:14] VITALS: BP 109/62
[2022-10-17] MEDS: OXYGEN THERAPY IH SCH ×4 (08:00→19:29)
[2022-10-17] MEDS: GABAPENTIN 300 MG CAPSULE PO SCH ×3 (08:35→22:06)
[2022-10-17] MEDS: DULoxetine HCL 30 MG CAPSULE PO SCH (08:35)
[2022-10-17] MEDS: DOCUSATE SODIUM 100 MG CAPSULE PO SCH ×2 (08:35→21:00)
[2022-10-17] MEDS: FAMOTIDINE 20 MG TABLET PO SCH ×2 (08:35→22:06)
[2022-10-17] MEDS: BusPIRone HCL 10 MG TABLET PO SCH ×3 (08:35→22:06)
[2022-10-17] MEDS: APIXABAN 5 MG TABLET PO SCH ×2 (08:35→22:06)
[2022-10-17] MEDS: METOPROLOL SUCCINATE 50 MG ER TABLET PO SCH ×2 (08:35→22:06)
[2022-10-17] MEDS: NYSTATIN 30 GM CREAM TP SCH ×2 (08:39→19:31)
[2022-10-17 11:04] VITALS: BP 104/66
[2022-10-17 11:26] VITALS: BP 104/66
[2022-10-17] MEDS: TraMADol HCL 50 MG TABLET PO PRN ×2 (14:07→22:06)
[2022-10-17 15:21] VITALS: BP 106/62
[2022-10-17 20:00] VITALS: BP 111/79
[2022-10-18] MEDS: TraMADol HCL 50 MG TABLET PO PRN ×2 (06:54→15:16)
[2022-10-18 08:00] VITALS: BP 104/60
[2022-10-18] MEDS: OXYGEN THERAPY IH SCH ×3 (08:00→20:36)
[2022-10-18] MEDS: METOPROLOL SUCCINATE 50 MG ER TABLET PO SCH ×2 (09:00→20:39)
[2022-10-18] MEDS: NYSTATIN 30 GM CREAM TP SCH ×2 (09:00→20:36)
[2022-10-18] MEDS: DOCUSATE SODIUM 100 MG CAPSULE PO SCH ×2 (09:05→20:35)
[2022-10-18] MEDS: DULoxetine HCL 30 MG CAPSULE PO SCH (09:05)
[2022-10-18] MEDS: FAMOTIDINE 20 MG TABLET PO SCH ×2 (09:05→20:35)
[2022-10-18] MEDS: GABAPENTIN 300 MG CAPSULE PO SCH ×3 (09:05→20:35)
[2022-10-18] MEDS: APIXABAN 5 MG TABLET PO SCH ×2 (09:05→20:35)
[2022-10-18] MEDS: BusPIRone HCL 10 MG TABLET PO SCH ×3 (09:06→20:35)
[2022-10-18 11:39] VITALS: BP 101/66
[2022-10-18 20:00] VITALS: BP 133/94
[2022-10-19] VITALS: BP 136/70
[2022-10-19] MEDS: ACETAMINOPHEN 325 MG TABLET PO PRN ×2 (00:09→05:28)
[2022-10-19] MEDS: TraMADol HCL 50 MG TABLET PO PRN ×3 (00:38→17:12)
[2022-10-19] MEDS ORDERED: TAMSULOSIN HCL 0.4 MG CAPSULE PO ONE (02:30)
[2022-10-19 04:53] VITALS: BP 105/66
[2022-10-19 08:21] VITALS: BP 115/67
[2022-10-19] MEDS: DOCUSATE SODIUM 100 MG CAPSULE PO SCH ×2 (09:00→20:49)
[2022-10-19] MEDS: OXYGEN THERAPY IH SCH ×3 (09:36→20:49)
[2022-10-19] MEDS: APIXABAN 5 MG TABLET PO SCH ×2 (09:37→20:49)
[2022-10-19] MEDS: BusPIRone HCL 10 MG TABLET PO SCH ×3 (09:37→20:49)
[2022-10-19] MEDS: METOPROLOL SUCCINATE 50 MG ER TABLET PO SCH ×2 (09:37→20:50)
[2022-10-19] MEDS: DULoxetine HCL 30 MG CAPSULE PO SCH (09:37)
[2022-10-19] MEDS: GABAPENTIN 300 MG CAPSULE PO SCH ×3 (09:37→20:49)
[2022-10-19] MEDS: FAMOTIDINE 20 MG TABLET PO SCH ×2 (09:38→20:49)
[2022-10-19] MEDS: NYSTATIN 30 GM CREAM TP SCH ×2 (09:48→20:50)
[2022-10-19 11:00] VITALS: BP 114/64
[2022-10-19 20:26] VITALS: BP 120/59
[2022-10-20 00:32] VITALS: BP 103/60
[2022-10-20] MEDS: TraMADol HCL 50 MG TABLET PO PRN ×3 (01:22→18:30)
[2022-10-20] MEDS: OXYGEN THERAPY IH SCH ×2 (08:00→20:24)
[2022-10-20] MEDS: DOCUSATE SODIUM 100 MG CAPSULE PO SCH ×2 (09:00→20:23)
[2022-10-20] MEDS: NYSTATIN 30 GM CREAM TP SCH ×2 (09:00→20:23)
[2022-10-20 09:27] VITALS: BP 104/61
[2022-10-20] MEDS: FAMOTIDINE 20 MG TABLET PO SCH ×2 (10:07→20:23)
[2022-10-20] MEDS: APIXABAN 5 MG TABLET PO SCH ×2 (10:07→20:23)
[2022-10-20] MEDS: GABAPENTIN 300 MG CAPSULE PO SCH ×3 (10:07→20:23)
[2022-10-20] MEDS: METOPROLOL SUCCINATE 50 MG ER TABLET PO SCH ×2 (10:07→20:23)
[2022-10-20] MEDS: DULoxetine HCL 30 MG CAPSULE PO SCH (10:07)
[2022-10-20] MEDS: BusPIRone HCL 10 MG TABLET PO SCH ×3 (10:08→20:23)
[2022-10-20] MEDS ORDERED: MIDAZOLAM HCL 2 MG/2 ML VIAL IVP ONE (12:00)
[2022-10-20] MEDS ORDERED: FentaNYL CITRATE PF 100 MCG/2 ML VIAL IVP ONE (12:00)
[2022-10-20 15:31] VITALS: BP 102/59
[2022-10-20 20:22] VITALS: BP 115/57
[2022-10-20 23:56] VITALS: BP 129/75
[2022-10-21] MEDS ORDERED: SODIUM CHLORIDE 0.9% 1,000 ML IV ONE ×2
[2022-10-21] MEDS: ACETAMINOPHEN 325 MG TABLET PO PRN (00:22)
[2022-10-21] MEDS: TraMADol HCL 50 MG TABLET PO PRN ×3 (02:44→20:00)
[2022-10-21 04:15] VITALS: BP 93/72
[2022-10-21 08:16] VITALS: BP 92/49
[2022-10-21] MEDS ORDERED: SODIUM CL IRRIG SOLN BAG 6,000 ML IRRIG ONE (08:42)
[2022-10-21] MEDS: DOCUSATE SODIUM 100 MG CAPSULE PO SCH ×2 (09:00→19:52)
[2022-10-21] MEDS: APIXABAN 5 MG TABLET PO SCH ×2 (09:00→20:00)
[2022-10-21] MEDS: GABAPENTIN 300 MG CAPSULE PO SCH ×3 (09:00→20:00)
[2022-10-21] MEDS: METOPROLOL SUCCINATE 50 MG ER TABLET PO SCH ×2 (09:00→19:53)
[2022-10-21] MEDS: FAMOTIDINE 20 MG TABLET PO SCH ×2 (09:00→20:00)
[2022-10-21] MEDS: NYSTATIN 30 GM CREAM TP SCH ×2 (09:00→19:53)
[2022-10-21] MEDS: BusPIRone HCL 10 MG TABLET PO SCH ×3 (09:00→20:00)
[2022-10-21] MEDS: DULoxetine HCL 30 MG CAPSULE PO SCH (09:00)
[2022-10-21] MEDS ORDERED: SODIUM CHLORIDE 0.9% 1,000 ML ONE (09:03)
[2022-10-21 09:34] LABS: BASOPHILS % (AUTO) 0.6 % (0.0-2.0); EOSINOPHILS % (AUTO) 3.9 % (1.0-6.0); HEMATOCRIT 40.5 % (41-53); HEMOGLOBIN 13.4 g/dL (13.5-17.5); LYMPHOCYTES # (AUTO) 2.7 K/uL (1.0-4.8); LYMPHOCYTES % (AUTO) 29.6 % (22.0-44.0); MEAN CORPUSCULAR HEMOGLOBIN 27.1 pg (26.0-34.0); MEAN CORPUSCULAR VOLUME 82 fL (80-100); MONOCYTES # (AUTO) 0.6 K/uL (0.1-1.0); MONOCYTES % (AUTO) 6.5 % (2.0-9.0); NEUTROPHILS # (AUTO) 5.4 K/uL (1.8-7.7); NEUTROPHILS % (AUTO) 59.4 % (40.0-70.0); PLATELET COUNT (AUTO) 280 K/uL (150-450); RED BLOOD CELL COUNT(AUTO) 4.93 MIL/uL (4.50-5.90); RED CELL DISTRIBUTION WIDTH 14.5 % (11.5-14.5)
[2022-10-21 09:39] LABS: ANION GAP 6 mmol/L (8-16); CALCIUM, TOTAL 8.6 mg/dL (8.8-10.5); CARBON DIOXIDE 31 mmol/L (22-29); CHLORIDE 99 mmol/L (98-107); CREATININE 1.01 mg/dL (0.60-1.30); GLUCOSE,RANDOM 94 mg/dL (70-110); POTASSIUM 3.6 mmol/L (3.5-5.1); SODIUM SERUM 136 mmol/L (136-145); UREA NITROGEN, BLOOD 20 mg/dL (7-18)
[2022-10-21 09:40] LABS: GLOMERULAR FILTR. RATE CALC > 60 mL/min (>60)
[2022-10-21] MEDS ORDERED: FentaNYL CITRATE PF 100 MCG/2 ML VIAL ONE (10:56)
[2022-10-21] MEDS: FentaNYL CITRATE PF 100 MCG/2 ML VIAL IVP PRN ×2 (11:03→11:18)
[2022-10-21] MEDS: CIPROFLOXACIN 400 MG/D5% WATER 200 ML IV STA ×2 (11:04→11:51)
[2022-10-21 11:48] VITALS: BP 100/55
[2022-10-21] MEDS ORDERED: ONDANSETRON HCL 4 MG/2 ML VIAL IVP ONE (12:00)
[2022-10-21] MEDS ORDERED: PROPOFOL 1% 20 ML VIAL IVP ONE (12:00)
[2022-10-21] MEDS ORDERED: LIDOCAINE/PF 2% 5 ML VIAL IM ONE (12:00)
[2022-10-21] MEDS ORDERED: HYDROCODONE/ACETAMINOPHEN 5-325 MG TABLET PO ONE (12:15)
[2022-10-21 16:19] VITALS: BP 91/48
[2022-10-21] MEDS: OXYGEN THERAPY IH SCH ×2 (19:52→20:00)
[2022-10-21 20:00] VITALS: BP 97/56
[2022-10-22 01:16] VITALS: BP 94/48
[2022-10-22 04:00] VITALS: BP 95/64
[2022-10-22] MEDS: TraMADol HCL 50 MG TABLET PO PRN ×2 (04:22→16:54)
[2022-10-22] MEDS: OXYGEN THERAPY IH SCH ×4 (08:00→21:19)
[2022-10-22 08:07] VITALS: BP 117/57
[2022-10-22] MEDS: NYSTATIN 30 GM CREAM TP SCH (09:00)
[2022-10-22] MEDS: DOCUSATE SODIUM 100 MG CAPSULE PO SCH ×2 (09:00→21:00)
[2022-10-22] MEDS: GABAPENTIN 300 MG CAPSULE PO SCH ×3 (10:28→21:09)
[2022-10-22] MEDS: FAMOTIDINE 20 MG TABLET PO SCH ×2 (10:29→21:09)
[2022-10-22] MEDS: APIXABAN 5 MG TABLET PO SCH ×2 (10:29→21:13)
[2022-10-22] MEDS: BusPIRone HCL 10 MG TABLET PO SCH ×3 (10:29→21:09)
[2022-10-22] MEDS: METOPROLOL SUCCINATE 50 MG ER TABLET PO SCH ×2 (10:29→21:18)
[2022-10-22] MEDS: DULoxetine HCL 30 MG CAPSULE PO SCH (10:29)
[2022-10-22 20:00] VITALS: BP 122/72
[2022-10-23] MEDS: NYSTATIN 30 GM CREAM TP SCH ×3 (01:00→21:00)
[2022-10-23] MEDS: TraMADol HCL 50 MG TABLET PO PRN ×3 (01:03→17:24)
[2022-10-23 01:13] VITALS: BP 112/65
[2022-10-23 04:00] VITALS: BP 106/60
[2022-10-23] MEDS: OXYGEN THERAPY IH SCH ×4 (08:00→20:28)
[2022-10-23] MEDS: DOCUSATE SODIUM 100 MG CAPSULE PO SCH ×2 (09:00→21:00)
[2022-10-23 09:09] VITALS: BP 112/68
[2022-10-23] MEDS: DULoxetine HCL 30 MG CAPSULE PO SCH (09:12)
[2022-10-23] MEDS: GABAPENTIN 300 MG CAPSULE PO SCH ×3 (09:12→21:12)
[2022-10-23] MEDS: FAMOTIDINE 20 MG TABLET PO SCH ×2 (09:12→21:12)
[2022-10-23] MEDS: BusPIRone HCL 10 MG TABLET PO SCH ×3 (09:13→21:12)
[2022-10-23] MEDS: APIXABAN 5 MG TABLET PO SCH ×2 (09:13→21:12)
[2022-10-23] MEDS: METOPROLOL SUCCINATE 50 MG ER TABLET PO SCH ×2 (09:13→21:14)
[2022-10-23 11:19] VITALS: BP 99/67
[2022-10-23 21:46] VITALS: BP 107/74
[2022-10-24 00:45] VITALS: BP 109/62
[2022-10-24] MEDS: TraMADol HCL 50 MG TABLET PO PRN ×3 (01:38→20:10)
[2022-10-24 05:14] VITALS: BP 107/62
[2022-10-24 07:44] VITALS: BP 98/68
[2022-10-24] MEDS: OXYGEN THERAPY IH SCH ×4 (08:00→20:08)
[2022-10-24] MEDS: DOCUSATE SODIUM 100 MG CAPSULE PO SCH ×2 (08:51→20:11)
[2022-10-24] MEDS: METOPROLOL SUCCINATE 50 MG ER TABLET PO SCH ×2 (08:51→20:09)
[2022-10-24] MEDS: GABAPENTIN 300 MG CAPSULE PO SCH ×3 (08:51→21:10)
[2022-10-24] MEDS: BusPIRone HCL 10 MG TABLET PO SCH ×3 (08:52→20:08)
[2022-10-24] MEDS: DULoxetine HCL 30 MG CAPSULE PO SCH ×2 (08:52→09:00)
[2022-10-24] MEDS: APIXABAN 5 MG TABLET PO SCH ×2 (08:52→20:11)
[2022-10-24] MEDS: FAMOTIDINE 20 MG TABLET PO SCH ×2 (08:52→20:11)
[2022-10-24] MEDS: NYSTATIN 30 GM CREAM TP SCH ×2 (08:55→21:00)
[2022-10-24 11:25] VITALS: BP 109/69
[2022-10-24] MEDS: ONDANSETRON HCL 4 MG/2 ML VIAL IVP PRN (13:15)
[2022-10-24 16:00] VITALS: BP 107/67
[2022-10-24 23:42] VITALS: BP 109/65
[2022-10-25] MEDS: TraMADol HCL 50 MG TABLET PO PRN ×2 (04:15→16:08)
[2022-10-25 04:49] VITALS: BP 106/64
[2022-10-25] MEDS: OXYGEN THERAPY IH SCH ×4 (08:00→20:00)
[2022-10-25] MEDS: BusPIRone HCL 10 MG TABLET PO SCH ×3 (08:50→21:40)
[2022-10-25] MEDS: DOCUSATE SODIUM 100 MG CAPSULE PO SCH ×2 (08:50→21:00)
[2022-10-25] MEDS: METOPROLOL SUCCINATE 50 MG ER TABLET PO SCH ×2 (08:50→21:41)
[2022-10-25] MEDS: FAMOTIDINE 20 MG TABLET PO SCH ×2 (08:50→21:41)
[2022-10-25] MEDS: NYSTATIN 30 GM CREAM TP SCH ×2 (08:51→21:00)
[2022-10-25] MEDS: APIXABAN 5 MG TABLET PO SCH ×2 (08:51→21:40)
[2022-10-25] MEDS: GABAPENTIN 300 MG CAPSULE PO SCH ×3 (08:51→21:41)
[2022-10-25 10:08] VITALS: BP 98/54
[2022-10-25 11:04] VITALS: BP 102/56
[2022-10-25 15:51] VITALS: BP 97/66
[2022-10-25 20:21] VITALS: BP 120/65
[2022-10-25] MEDS: ZOLPIDEM TARTRATE 5 MG TABLET PO PRN (21:40)
[2022-10-26] MEDS: TraMADol HCL 50 MG TABLET PO PRN ×4 (00:07→22:06)
[2022-10-26 05:21] VITALS: BP 110/62
[2022-10-26 07:13] VITALS: BP 101/54
[2022-10-26 08:40] LABS: APPEARANCE,URINE HAZY (CLEAR); BILIRUBIN,URINE NEGATIVE (NEGATIVE); GLUCOSE, URINE (UA) NEGATIVE (NEGATIVE); KETONES,URINE NEGATIVE (NEGATIVE); LEUKOCYTE ESTERASE ,URINE LARGE (NEGATIVE); NITRATE,URINE POSITIVE (NEGATIVE); OCCULT BLOOD,URINE MODERATE (NEGATIVE); PROTEIN,URINE 100-200,SEE CONFIRM mg/dL (NEGATIVE); SPECIFIC GRAVITIY, URINE 1.026 (1.003-1.030); UROBILINOGEN,URINE <=1.0 mg/dL (<=1.0)
[2022-10-26 08:45] VITALS: BP 115/68
[2022-10-26 08:58] LABS: RBC,URINE 26-50 /HPF (0-2); SULFOSALICYLIC ACID,URINE 2+ (Negative)
[2022-10-26 08:59] LABS: AMORPHOUS SEDIMENT,UR Moderate /LPF (None Seen); BACTERIA,URINE Few /HPF (None Seen); SQUAMOUS EPITHELIAL CELL,UR Few /LPF (None Seen)
[2022-10-26] MEDS: DOCUSATE SODIUM 100 MG CAPSULE PO SCH ×2 (09:00→21:00)
[2022-10-26] MEDS: APIXABAN 5 MG TABLET PO SCH ×2 (09:32→22:06)
[2022-10-26] MEDS: DULoxetine HCL 30 MG CAPSULE PO SCH (09:32)
[2022-10-26] MEDS: BusPIRone HCL 10 MG TABLET PO SCH ×3 (09:33→22:06)
[2022-10-26] MEDS: FAMOTIDINE 20 MG TABLET PO SCH ×2 (09:33→22:06)
[2022-10-26] MEDS: GABAPENTIN 300 MG CAPSULE PO SCH ×3 (09:33→22:06)
[2022-10-26] MEDS: NYSTATIN 30 GM CREAM TP SCH ×2 (09:38→21:00)
[2022-10-26] MEDS: METOPROLOL SUCCINATE 50 MG ER TABLET PO SCH ×2 (09:39→22:06)
[2022-10-26] MEDS: OXYGEN THERAPY IH SCH ×4 (09:40→20:00)
[2022-10-26] MEDS: ACETAMINOPHEN 325 MG TABLET PO PRN (10:51)
[2022-10-26 11:55] VITALS: BP 100/68
[2022-10-26] MEDS ORDERED: HYDROCODONE/ACETAMINOPHEN 5-325 MG TABLET PO ONE (12:30)
[2022-10-26 16:07] VITALS: BP 107/62
[2022-10-26] MEDS: NITROFURANTOIN MONOHYD/M-CRYST 100 MG CAPSULE [MACROBID] PO SCH (22:06)
[2022-10-26 22:20] VITALS: BP 106/69
[2022-10-27 01:00] VITALS: BP 104/67
[2022-10-27] MEDS: ACETAMINOPHEN 325 MG TABLET PO PRN ×2 (04:16→09:52)
[2022-10-27] MEDS: ONDANSETRON HCL 4 MG/2 ML VIAL IVP PRN ×2 (04:16→12:15)
[2022-10-27] MEDS: TraMADol HCL 50 MG TABLET PO PRN ×3 (06:03→23:18)
[2022-10-27 07:46] VITALS: BP 109/67
[2022-10-27] MEDS: OXYGEN THERAPY IH SCH ×4 (08:00→20:30)
[2022-10-27] MEDS: DOCUSATE SODIUM 100 MG CAPSULE PO SCH ×2 (09:00→20:30)
[2022-10-27] MEDS: NYSTATIN 30 GM CREAM TP SCH ×2 (09:00→21:51)
[2022-10-27] MEDS: NITROFURANTOIN MONOHYD/M-CRYST 100 MG CAPSULE [MACROBID] PO SCH ×2 (09:39→20:30)
[2022-10-27] MEDS: DULoxetine HCL 30 MG CAPSULE PO SCH (09:39)
[2022-10-27] MEDS: BusPIRone HCL 10 MG TABLET PO SCH ×3 (09:39→20:30)
[2022-10-27] MEDS: GABAPENTIN 300 MG CAPSULE PO SCH ×3 (09:39→20:30)
[2022-10-27] MEDS: APIXABAN 5 MG TABLET PO SCH ×2 (09:39→20:30)
[2022-10-27] MEDS: FAMOTIDINE 20 MG TABLET PO SCH ×2 (09:39→20:30)
[2022-10-27] MEDS: METOPROLOL SUCCINATE 50 MG ER TABLET PO SCH ×2 (09:40→20:31)
[2022-10-27 11:28] VITALS: BP 99/54
[2022-10-27] MEDS: PHENAZOPYRIDINE HCL 200 MG TABLET PO SCH ×3 (12:15→20:30)
[2022-10-27 16:26] VITALS: BP 130/62
[2022-10-27 19:39] VITALS: BP 116/70
[2022-10-28 00:24] VITALS: BP 97/67
[2022-10-28] MEDS: ONDANSETRON HCL 4 MG/2 ML VIAL IVP PRN ×4 (04:37→20:14)
[2022-10-28 07:30] VITALS: BP 116/69
[2022-10-28] MEDS: ACETAMINOPHEN 325 MG TABLET PO PRN ×2 (07:48→15:41)
[2022-10-28] MEDS: TraMADol HCL 50 MG TABLET PO PRN ×2 (07:49→15:42)
[2022-10-28] MEDS: OXYGEN THERAPY IH SCH ×4 (08:00→20:13)
[2022-10-28] MEDS: METOPROLOL SUCCINATE 50 MG ER TABLET PO SCH (09:00)
[2022-10-28] MEDS: DOCUSATE SODIUM 100 MG CAPSULE PO SCH ×2 (09:00→20:13)
[2022-10-28] MEDS: APIXABAN 5 MG TABLET PO SCH ×2 (09:45→20:13)
[2022-10-28] MEDS: FAMOTIDINE 20 MG TABLET PO SCH ×2 (09:45→20:13)
[2022-10-28] MEDS: GABAPENTIN 300 MG CAPSULE PO SCH ×3 (09:45→20:13)
[2022-10-28] MEDS: DULoxetine HCL 30 MG CAPSULE PO SCH (09:45)
[2022-10-28] MEDS: BusPIRone HCL 10 MG TABLET PO SCH ×3 (09:45→20:13)
[2022-10-28] MEDS: NITROFURANTOIN MONOHYD/M-CRYST 100 MG CAPSULE [MACROBID] PO SCH ×2 (09:45→20:13)
[2022-10-28] MEDS: PHENAZOPYRIDINE HCL 200 MG TABLET PO SCH ×3 (09:45→22:28)
[2022-10-28] MEDS: NYSTATIN 30 GM CREAM TP SCH ×2 (09:53→20:14)
[2022-10-28 16:00] VITALS: BP 115/70
[2022-10-28 19:36] VITALS: BP 129/69
[2022-10-28 23:23] VITALS: BP 135/77
[2022-10-29] MEDS: TraMADol HCL 50 MG TABLET PO PRN ×3 (00:03→16:42)
[2022-10-29 07:52] VITALS: BP 106/72
[2022-10-29] MEDS: OXYGEN THERAPY IH SCH ×3 (08:00→21:50)
[2022-10-29] MEDS: APIXABAN 5 MG TABLET PO SCH ×2 (08:41→21:50)
[2022-10-29] MEDS: DULoxetine HCL 30 MG CAPSULE PO SCH (08:41)
[2022-10-29] MEDS: BusPIRone HCL 10 MG TABLET PO SCH ×3 (08:41→21:50)
[2022-10-29] MEDS: DOCUSATE SODIUM 100 MG CAPSULE PO SCH ×2 (08:42→21:00)
[2022-10-29] MEDS: FAMOTIDINE 20 MG TABLET PO SCH ×2 (08:42→21:50)
[2022-10-29] MEDS: NYSTATIN 30 GM CREAM TP SCH ×2 (08:42→21:00)
[2022-10-29] MEDS: GABAPENTIN 300 MG CAPSULE PO SCH ×3 (08:42→21:50)
[2022-10-29] MEDS: NITROFURANTOIN MONOHYD/M-CRYST 100 MG CAPSULE [MACROBID] PO SCH ×2 (08:42→21:50)
[2022-10-29] MEDS: ONDANSETRON HCL 4 MG/2 ML VIAL IVP PRN ×2 (10:20→14:45)
[2022-10-29 11:46] VITALS: BP 111/68
[2022-10-29] MEDS: ACETAMINOPHEN 325 MG TABLET PO PRN (14:45)
[2022-10-29 15:34] VITALS: BP 105/58
[2022-10-29 20:10] VITALS: BP 111/61
[2022-10-30] MEDS: TraMADol HCL 50 MG TABLET PO PRN ×3 (02:11→21:13)
[2022-10-30] MEDS: ONDANSETRON HCL 4 MG/2 ML VIAL IVP PRN (02:12)
[2022-10-30 04:57] VITALS: BP 101/63
[2022-10-30] MEDS: OXYGEN THERAPY IH SCH ×2 (08:00→20:00)
[2022-10-30] MEDS: GABAPENTIN 300 MG CAPSULE PO SCH ×3 (08:33→21:13)
[2022-10-30] MEDS: DULoxetine HCL 30 MG CAPSULE PO SCH (08:34)
[2022-10-30] MEDS: BusPIRone HCL 10 MG TABLET PO SCH ×3 (08:34→21:12)
[2022-10-30] MEDS: APIXABAN 5 MG TABLET PO SCH ×2 (08:34→21:13)
[2022-10-30] MEDS: FAMOTIDINE 20 MG TABLET PO SCH ×2 (08:34→21:13)
[2022-10-30] MEDS: NITROFURANTOIN MONOHYD/M-CRYST 100 MG CAPSULE [MACROBID] PO SCH ×2 (08:34→21:12)
[2022-10-30] MEDS: DOCUSATE SODIUM 100 MG CAPSULE PO SCH ×2 (08:34→21:13)
[2022-10-30] MEDS: NYSTATIN 30 GM CREAM TP SCH ×2 (08:35→21:13)
[2022-10-30 11:02] VITALS: BP 112/70
[2022-10-30 16:22] VITALS: BP 116/72
[2022-10-30 20:17] VITALS: BP 160/78
[2022-10-31 04:28] VITALS: BP 125/77
[2022-10-31] MEDS: TraMADol HCL 50 MG TABLET PO PRN ×3 (06:20→21:54)
[2022-10-31] MEDS: OXYGEN THERAPY IH SCH ×2 (08:00→20:00)
[2022-10-31 08:29] VITALS: BP 112/60
[2022-10-31] MEDS: DOCUSATE SODIUM 100 MG CAPSULE PO SCH ×2 (09:00→21:00)
[2022-10-31] MEDS: NYSTATIN 30 GM CREAM TP SCH ×2 (09:00→21:54)
[2022-10-31] MEDS: DULoxetine HCL 30 MG CAPSULE PO SCH (09:54)
[2022-10-31] MEDS: GABAPENTIN 300 MG CAPSULE PO SCH ×3 (09:55→21:54)
[2022-10-31] MEDS: BusPIRone HCL 10 MG TABLET PO SCH ×3 (09:55→21:54)
[2022-10-31] MEDS: FAMOTIDINE 20 MG TABLET PO SCH ×2 (09:55→21:54)
[2022-10-31] MEDS: NITROFURANTOIN MONOHYD/M-CRYST 100 MG CAPSULE [MACROBID] PO SCH ×2 (09:55→21:54)
[2022-10-31 12:01] VITALS: BP 113/67
[2022-10-31 16:00] VITALS: BP 109/64
[2022-10-31 19:18] VITALS: BP 104/68
[2022-10-31] MEDS: NYSTATIN 500,000 UNITS/5 ML SUSPENSION UDCUP PO SCH (21:54)
[2022-11-01] MEDS: TraMADol HCL 50 MG TABLET PO PRN ×2 (06:09→15:14)
[2022-11-01 06:59] VITALS: BP 132/66
[2022-11-01] MEDS: OXYGEN THERAPY IH SCH ×2 (08:00→20:29)
[2022-11-01 08:26] VITALS: BP 134/71
[2022-11-01] MEDS: NYSTATIN 30 GM CREAM TP SCH ×2 (09:00→20:54)
[2022-11-01] MEDS: DOCUSATE SODIUM 100 MG CAPSULE PO SCH ×2 (09:00→20:29)
[2022-11-01] MEDS: NYSTATIN 500,000 UNITS/5 ML SUSPENSION UDCUP PO SCH ×2 (10:31→20:30)
[2022-11-01] MEDS: DULoxetine HCL 30 MG CAPSULE PO SCH (10:31)
[2022-11-01] MEDS: NITROFURANTOIN MONOHYD/M-CRYST 100 MG CAPSULE [MACROBID] PO SCH ×2 (10:31→20:29)
[2022-11-01] MEDS: GABAPENTIN 300 MG CAPSULE PO SCH ×3 (10:32→20:30)
[2022-11-01] MEDS: BusPIRone HCL 10 MG TABLET PO SCH ×3 (10:32→20:29)
[2022-11-01] MEDS: FAMOTIDINE 20 MG TABLET PO SCH ×2 (10:32→20:30)
[2022-11-01 11:34] VITALS: BP 139/79
[2022-11-01 15:57] VITALS: BP 150/89
[2022-11-01] MEDS ORDERED: TUBERCULIN, PURIFIED PROTEIN DERIVATIVE 5 TU/0.1 ML SYRINGE ID ONE (18:15)
[2022-11-02] MEDS: TraMADol HCL 50 MG TABLET PO PRN ×2 (05:05→21:50)
[2022-11-02 06:32] LABS: COVID AG,FIA SOURCE NASAL SWAB
[2022-11-02 07:47] VITALS: BP 133/86
[2022-11-02] MEDS: OXYGEN THERAPY IH SCH ×2 (08:00→20:00)
[2022-11-02] MEDS: DULoxetine HCL 30 MG CAPSULE PO SCH (08:38)
[2022-11-02] MEDS: BusPIRone HCL 10 MG TABLET PO SCH ×3 (08:38→21:51)
[2022-11-02] MEDS: DOCUSATE SODIUM 100 MG CAPSULE PO SCH ×2 (08:38→21:00)
[2022-11-02] MEDS: GABAPENTIN 300 MG CAPSULE PO SCH ×3 (08:39→21:50)
[2022-11-02] MEDS: NITROFURANTOIN MONOHYD/M-CRYST 100 MG CAPSULE [MACROBID] PO SCH ×2 (08:39→21:51)
[2022-11-02] MEDS: NYSTATIN 500,000 UNITS/5 ML SUSPENSION UDCUP PO SCH ×2 (08:39→21:50)
[2022-11-02] MEDS: NYSTATIN 30 GM CREAM TP SCH ×2 (08:40→21:00)
[2022-11-02] MEDS: FAMOTIDINE 20 MG TABLET PO SCH ×2 (08:40→21:50)
[2022-11-02] MEDS: ONDANSETRON HCL 4 MG/2 ML VIAL IVP PRN (21:48)
[2022-11-03 04:05] VITALS: BP 128/90
[2022-11-03] MEDS: OXYGEN THERAPY IH SCH (08:00)
[2022-11-03] MEDS: BusPIRone HCL 10 MG TABLET PO SCH ×2 (08:25→16:07)
[2022-11-03] MEDS: DULoxetine HCL 30 MG CAPSULE PO SCH (08:25)
[2022-11-03] MEDS: GABAPENTIN 300 MG CAPSULE PO SCH ×3 (08:25→20:23)
[2022-11-03] MEDS: DOCUSATE SODIUM 100 MG CAPSULE PO SCH ×2 (08:25→20:24)
[2022-11-03] MEDS: TraMADol HCL 50 MG TABLET PO PRN ×2 (08:26→12:24)
[2022-11-03] MEDS: FAMOTIDINE 20 MG TABLET PO SCH ×2 (08:26→20:23)
[2022-11-03] MEDS: NYSTATIN 500,000 UNITS/5 ML SUSPENSION UDCUP PO SCH ×2 (08:26→20:22)
[2022-11-03] MEDS: NITROFURANTOIN MONOHYD/M-CRYST 100 MG CAPSULE [MACROBID] PO SCH ×2 (08:26→20:23)
[2022-11-03] MEDS: NYSTATIN 30 GM CREAM TP SCH ×2 (08:37→20:24)
[2022-11-03 11:06] VITALS: BP 122/66
[2022-11-03] MEDS: METOPROLOL SUCCINATE 25 MG ER TABLET PO SCH ×2 (12:24→20:23)
[2022-11-03] MEDS: APIXABAN 5 MG TABLET PO SCH ×2 (12:24→20:23)
[2022-11-03] MEDS: ASPIRIN 81 MG CHEWABLE TABLET PO SCH (12:24)
[2022-11-03] MEDS: ONDANSETRON HCL 4 MG/2 ML VIAL IVP PRN (20:22)
[2022-11-03 20:54] VITALS: BP 117/69
[2022-11-04] MEDS: BusPIRone HCL 10 MG TABLET PO SCH ×4 (00:11→21:13)
[2022-11-04] MEDS: TraMADol HCL 50 MG TABLET PO PRN ×3 (00:11→16:48)
[2022-11-04 00:18] VITALS: BP 109/68
[2022-11-04 04:54] VITALS: BP 114/60
[2022-11-04 07:07] LABS: BASOPHILS % (AUTO) 0.6 % (0.0-2.0); EOSINOPHILS % (AUTO) 1.6 % (1.0-6.0); HEMATOCRIT 37.8 % (41-53); HEMOGLOBIN 12.7 g/dL (13.5-17.5); LYMPHOCYTES % (AUTO) 22.2 % (22.0-44.0); MEAN CORPUSCULAR HEMOGLOBIN 27.6 pg (26.0-34.0); MEAN CORPUSCULAR HGB CONC 33.7 G/dL (31.0-37.0); MEAN CORPUSCULAR VOLUME 82 fL (80-100); MONOCYTES # (AUTO) 0.8 K/uL (0.1-1.0); NEUTROPHILS # (AUTO) 5.9 K/uL (1.8-7.7); NEUTROPHILS % (AUTO) 66.6 % (40.0-70.0); PLATELET COUNT (AUTO) 246 K/uL (150-450); RED BLOOD CELL COUNT(AUTO) 4.61 MIL/uL (4.50-5.90); RED CELL DISTRIBUTION WIDTH 14.9 % (11.5-14.5)
[2022-11-04 07:18] LABS: ANION GAP 6 mmol/L (8-16); CALCIUM, TOTAL 8.8 mg/dL (8.8-10.5); CARBON DIOXIDE 30 mmol/L (22-29); CHLORIDE 104 mmol/L (98-107); CREATININE 1.06 mg/dL (0.60-1.30); GLOMERULAR FILTR. RATE CALC > 60 mL/min (>60); GLUCOSE,RANDOM 97 mg/dL (70-110); POTASSIUM 4.3 mmol/L (3.5-5.1); SODIUM SERUM 140 mmol/L (136-145); UREA NITROGEN, BLOOD 19 mg/dL (7-18)
[2022-11-04] MEDS: OXYGEN THERAPY IH SCH ×2 (08:00→20:00)
[2022-11-04] MEDS: ASPIRIN 81 MG CHEWABLE TABLET PO SCH (08:37)
[2022-11-04] MEDS: NITROFURANTOIN MONOHYD/M-CRYST 100 MG CAPSULE [MACROBID] PO SCH ×2 (08:38→21:13)
[2022-11-04] MEDS: NYSTATIN 500,000 UNITS/5 ML SUSPENSION UDCUP PO SCH ×2 (08:38→21:14)
[2022-11-04] MEDS: DULoxetine HCL 30 MG CAPSULE PO SCH (08:38)
[2022-11-04] MEDS: APIXABAN 5 MG TABLET PO SCH ×2 (08:38→21:14)
[2022-11-04] MEDS: FAMOTIDINE 20 MG TABLET PO SCH ×2 (08:39→21:13)
[2022-11-04] MEDS: GABAPENTIN 300 MG CAPSULE PO SCH ×3 (08:39→21:13)
[2022-11-04] MEDS: METOPROLOL SUCCINATE 25 MG ER TABLET PO SCH ×2 (08:45→21:13)
[2022-11-04] MEDS: NYSTATIN 30 GM CREAM TP SCH ×2 (08:53→21:00)
[2022-11-04] MEDS: DOCUSATE SODIUM 100 MG CAPSULE PO SCH ×2 (09:00→21:13)
[2022-11-04 11:44] VITALS: BP 153/93
[2022-11-04] MEDS ORDERED: NITROGLYCERIN 0.4 MG SUBLINGUAL TABLET #25 SL PRN (13:15)
[2022-11-04] MEDS: NITROGLYCERIN 0.4 MG SUBLINGUAL TABLET #25 SL PRN (13:28)
[2022-11-04] MEDS ORDERED: TraMADol HCL 50 MG TABLET PO ONE (14:00)
[2022-11-04 14:48] VITALS: BP 127/75
[2022-11-04] MEDS: ONDANSETRON HCL 4 MG/2 ML VIAL IVP PRN (16:51)
[2022-11-04 19:23] VITALS: BP 147/85
[2022-11-04] MEDS: ACETAMINOPHEN 325 MG TABLET PO PRN (21:12)
[2022-11-05 06:45] VITALS: BP 137/74
[2022-11-05 07:14] LABS: ANION GAP 9 mmol/L (8-16); CARBON DIOXIDE 29 mmol/L (22-29); CHLORIDE 103 mmol/L (98-107); CREATININE 0.95 mg/dL (0.60-1.30); GLOMERULAR FILTR. RATE CALC > 60 mL/min (>60); GLUCOSE,RANDOM 100 mg/dL (70-110); POTASSIUM 4.4 mmol/L (3.5-5.1); SODIUM SERUM 141 mmol/L (136-145); UREA NITROGEN, BLOOD 18 mg/dL (7-18)
[2022-11-05 07:21] LABS: BASOPHILS % (AUTO) 0.8 % (0.0-2.0); EOSINOPHILS % (AUTO) 2.7 % (1.0-6.0); HEMATOCRIT 38.8 % (41-53); HEMOGLOBIN 13.2 g/dL (13.5-17.5); LYMPHOCYTES # (AUTO) 1.9 K/uL (1.0-4.8); LYMPHOCYTES % (AUTO) 24.9 % (22.0-44.0); MEAN CORPUSCULAR HEMOGLOBIN 27.7 pg (26.0-34.0); MEAN CORPUSCULAR HGB CONC 34.1 G/dL (31.0-37.0); MEAN CORPUSCULAR VOLUME 81 fL (80-100); MONOCYTES # (AUTO) 0.7 K/uL (0.1-1.0); MONOCYTES % (AUTO) 9.3 % (2.0-9.0); NEUTROPHILS # (AUTO) 4.8 K/uL (1.8-7.7); NEUTROPHILS % (AUTO) 62.3 % (40.0-70.0); PLATELET COUNT (AUTO) 243 K/uL (150-450); RED BLOOD CELL COUNT(AUTO) 4.77 MIL/uL (4.50-5.90); RED CELL DISTRIBUTION WIDTH 14.7 % (11.5-14.5)
[2022-11-05 08:08] VITALS: BP 117/76
[2022-11-05] MEDS: DOCUSATE SODIUM 100 MG CAPSULE PO SCH ×2 (09:00→20:15)
[2022-11-05] MEDS: NYSTATIN 30 GM CREAM TP SCH ×2 (09:00→20:15)
[2022-11-05] MEDS: NITROFURANTOIN MONOHYD/M-CRYST 100 MG CAPSULE [MACROBID] PO SCH ×2 (09:26→20:14)
[2022-11-05] MEDS: GABAPENTIN 300 MG CAPSULE PO SCH ×3 (09:26→20:15)
[2022-11-05] MEDS: ASPIRIN 81 MG CHEWABLE TABLET PO SCH (09:26)
[2022-11-05] MEDS: BusPIRone HCL 10 MG TABLET PO SCH ×3 (09:27→20:14)
[2022-11-05] MEDS: APIXABAN 5 MG TABLET PO SCH ×2 (09:27→20:14)
[2022-11-05] MEDS: FAMOTIDINE 20 MG TABLET PO SCH ×2 (09:27→20:15)
[2022-11-05] MEDS: DULoxetine HCL 30 MG CAPSULE PO SCH (09:27)
[2022-11-05] MEDS: METOPROLOL SUCCINATE 25 MG ER TABLET PO SCH ×2 (09:27→20:15)
[2022-11-05] MEDS: OXYGEN THERAPY IH SCH ×2 (09:28→20:00)
[2022-11-05] MEDS: TraMADol HCL 50 MG TABLET PO PRN ×2 (09:28→17:36)
[2022-11-05] MEDS: NYSTATIN 500,000 UNITS/5 ML SUSPENSION UDCUP PO SCH ×2 (09:28→20:14)
[2022-11-05 11:42] VITALS: BP 130/78
[2022-11-05] MEDS: ONDANSETRON HCL 4 MG/2 ML VIAL IVP PRN (13:08)
[2022-11-05] MEDS ORDERED: TraMADol HCL 50 MG TABLET PO ONE (15:15)
[2022-11-05 16:17] VITALS: BP 130/78
[2022-11-05] MEDS: ACETAMINOPHEN 325 MG TABLET PO PRN (20:19)
[2022-11-06] VITALS: BP 119/74
[2022-11-06] MEDS: TraMADol HCL 50 MG TABLET PO PRN ×3 (01:47→17:11)
[2022-11-06 04:00] VITALS: BP 120/75
[2022-11-06] MEDS: OXYGEN THERAPY IH SCH ×2 (08:00→19:39)
[2022-11-06 08:18] VITALS: BP 107/56
[2022-11-06] MEDS: NYSTATIN 30 GM CREAM TP SCH ×2 (09:00→19:48)
[2022-11-06] MEDS: DOCUSATE SODIUM 100 MG CAPSULE PO SCH ×2 (09:00→19:48)
[2022-11-06] MEDS: FAMOTIDINE 20 MG TABLET PO SCH ×2 (09:38→19:46)
[2022-11-06] MEDS: METOPROLOL SUCCINATE 25 MG ER TABLET PO SCH ×2 (09:39→19:47)
[2022-11-06] MEDS: APIXABAN 5 MG TABLET PO SCH ×2 (09:39→19:47)
[2022-11-06] MEDS: ASPIRIN 81 MG CHEWABLE TABLET PO SCH (09:39)
[2022-11-06] MEDS: NYSTATIN 500,000 UNITS/5 ML SUSPENSION UDCUP PO SCH ×2 (09:40→19:47)
[2022-11-06] MEDS: GABAPENTIN 300 MG CAPSULE PO SCH ×3 (09:40→19:47)
[2022-11-06] MEDS: NITROFURANTOIN MONOHYD/M-CRYST 100 MG CAPSULE [MACROBID] PO SCH ×2 (09:40→19:46)
[2022-11-06] MEDS: DULoxetine HCL 30 MG CAPSULE PO SCH (09:41)
[2022-11-06] MEDS: BusPIRone HCL 10 MG TABLET PO SCH ×3 (09:41→19:47)
[2022-11-06 11:22] VITALS: BP 118/59
[2022-11-06 15:08] VITALS: BP 130/61
[2022-11-06 19:28] VITALS: BP 133/77
[2022-11-06] MEDS: ACETAMINOPHEN 325 MG TABLET PO PRN (19:47)
[2022-11-07 00:13] VITALS: BP 105/69
[2022-11-07] MEDS: TraMADol HCL 50 MG TABLET PO PRN ×3 (01:44→20:46)
[2022-11-07 07:00] VITALS: BP 101/62
[2022-11-07] MEDS: OXYGEN THERAPY IH SCH ×2 (08:00→20:41)
[2022-11-07] MEDS: DOCUSATE SODIUM 100 MG CAPSULE PO SCH ×2 (09:00→20:41)
[2022-11-07] MEDS: BusPIRone HCL 10 MG TABLET PO SCH ×3 (09:53→20:47)
[2022-11-07] MEDS: DULoxetine HCL 30 MG CAPSULE PO SCH (09:53)
[2022-11-07] MEDS: NITROFURANTOIN MONOHYD/M-CRYST 100 MG CAPSULE [MACROBID] PO SCH ×2 (09:53→20:47)
[2022-11-07] MEDS: NYSTATIN 500,000 UNITS/5 ML SUSPENSION UDCUP PO SCH ×3 (09:53→20:51)
[2022-11-07] MEDS: NYSTATIN 30 GM CREAM TP SCH ×2 (09:54→21:00)
[2022-11-07] MEDS ORDERED: TraMADol HCL 50 MG TABLET ONE (11:14)
[2022-11-07 12:07] VITALS: BP 125/77
[2022-11-07] MEDS: ASPIRIN 81 MG CHEWABLE TABLET PO SCH (12:54)
[2022-11-07] MEDS: APIXABAN 5 MG TABLET PO SCH ×2 (12:54→20:47)
[2022-11-07] MEDS: GABAPENTIN 300 MG CAPSULE PO SCH ×3 (12:54→20:47)
[2022-11-07] MEDS: FAMOTIDINE 20 MG TABLET PO SCH ×2 (12:55→20:47)
[2022-11-07] MEDS: METOPROLOL SUCCINATE 25 MG ER TABLET PO SCH ×2 (12:55→20:46)
[2022-11-07] MEDS: ACETAMINOPHEN 325 MG TABLET PO PRN (15:12)
[2022-11-07 18:41] VITALS: BP 118/70
[2022-11-07 20:19] VITALS: BP 130/75
[2022-11-07 23:47] VITALS: BP 130/75
[2022-11-08 05:39] VITALS: BP 105/63
[2022-11-08] MEDS: OXYGEN THERAPY IH SCH ×2 (08:00→20:44)
[2022-11-08] MEDS: NYSTATIN 500,000 UNITS/5 ML SUSPENSION UDCUP PO SCH ×2 (09:00→20:47)
[2022-11-08] MEDS: GABAPENTIN 300 MG CAPSULE PO SCH ×3 (09:31→20:47)
[2022-11-08] MEDS: BusPIRone HCL 10 MG TABLET PO SCH ×3 (09:32→20:47)
[2022-11-08] MEDS: DULoxetine HCL 30 MG CAPSULE PO SCH (09:32)
[2022-11-08] MEDS: ASPIRIN 81 MG CHEWABLE TABLET PO SCH (09:32)
[2022-11-08] MEDS: NITROFURANTOIN MONOHYD/M-CRYST 100 MG CAPSULE [MACROBID] PO SCH ×2 (09:32→20:47)
[2022-11-08] MEDS: FAMOTIDINE 20 MG TABLET PO SCH ×2 (09:32→20:47)
[2022-11-08] MEDS: APIXABAN 5 MG TABLET PO SCH ×2 (09:32→20:47)
[2022-11-08] MEDS: TraMADol HCL 50 MG TABLET PO PRN ×2 (09:32→17:41)
[2022-11-08] MEDS: DOCUSATE SODIUM 100 MG CAPSULE PO SCH ×2 (09:32→20:44)
[2022-11-08] MEDS: NYSTATIN 30 GM CREAM TP SCH ×2 (09:33→21:00)
[2022-11-08 11:31] VITALS: BP 123/69
[2022-11-08] MEDS: METOPROLOL SUCCINATE 25 MG ER TABLET PO SCH ×2 (13:08→20:48)
[2022-11-08 16:13] VITALS: BP 97/64
[2022-11-08 19:39] VITALS: BP 120/69
[2022-11-09 00:25] VITALS: BP 103/68
[2022-11-09] MEDS: TraMADol HCL 50 MG TABLET PO PRN ×3 (01:54→20:45)
[2022-11-09] MEDS: OXYGEN THERAPY IH SCH ×2 (08:00→20:44)
[2022-11-09] MEDS: NITROFURANTOIN MONOHYD/M-CRYST 100 MG CAPSULE [MACROBID] PO SCH ×2 (08:16→20:46)
[2022-11-09] MEDS: ASPIRIN 81 MG CHEWABLE TABLET PO SCH (08:17)
[2022-11-09] MEDS: GABAPENTIN 300 MG CAPSULE PO SCH ×3 (08:17→20:46)
[2022-11-09] MEDS: DULoxetine HCL 30 MG CAPSULE PO SCH (08:18)
[2022-11-09] MEDS: APIXABAN 5 MG TABLET PO SCH ×2 (08:18→20:45)
[2022-11-09] MEDS: METOPROLOL SUCCINATE 25 MG ER TABLET PO SCH ×2 (08:19→20:46)
[2022-11-09] MEDS: FAMOTIDINE 20 MG TABLET PO SCH ×2 (08:19→20:45)
[2022-11-09] MEDS: DOCUSATE SODIUM 100 MG CAPSULE PO SCH ×2 (08:19→20:46)
[2022-11-09] MEDS: BusPIRone HCL 10 MG TABLET PO SCH ×3 (08:20→20:46)
[2022-11-09] MEDS: NYSTATIN 500,000 UNITS/5 ML SUSPENSION UDCUP PO SCH ×2 (08:23→20:46)
[2022-11-09] MEDS: NYSTATIN 30 GM CREAM TP SCH ×2 (08:24→20:47)
[2022-11-09 11:39] VITALS: BP 122/82
[2022-11-09 15:50] VITALS: BP 134/76
[2022-11-09 20:38] VITALS: BP 116/67
[2022-11-10 00:39] VITALS: BP 102/64
[2022-11-10 05:00] VITALS: BP 110/62
[2022-11-10 08:00] VITALS: BP 111/62
[2022-11-10 08:06] LABS: APPEARANCE,URINE HAZY (CLEAR); BILIRUBIN,URINE NEGATIVE (NEGATIVE); GLUCOSE, URINE (UA) NEGATIVE (NEGATIVE); KETONES,URINE NEGATIVE (NEGATIVE); LEUKOCYTE ESTERASE ,URINE TRACE (NEGATIVE); NITRATE,URINE NEGATIVE (NEGATIVE); OCCULT BLOOD,URINE LARGE (NEGATIVE); PROTEIN,URINE 30-70 mg/dL (NEGATIVE); SPECIFIC GRAVITIY, URINE 1.028 (1.003-1.030); UROBILINOGEN,URINE <=1.0 mg/dL (<=1.0)
[2022-11-10] MEDS: DULoxetine HCL 30 MG CAPSULE PO SCH (08:37)
[2022-11-10] MEDS: GABAPENTIN 300 MG CAPSULE PO SCH ×3 (08:37→20:42)
[2022-11-10] MEDS: NITROFURANTOIN MONOHYD/M-CRYST 100 MG CAPSULE [MACROBID] PO SCH ×2 (08:37→20:43)
[2022-11-10] MEDS: DOCUSATE SODIUM 100 MG CAPSULE PO SCH ×2 (08:38→20:45)
[2022-11-10] MEDS: BusPIRone HCL 10 MG TABLET PO SCH ×3 (08:38→20:44)
[2022-11-10] MEDS: FAMOTIDINE 20 MG TABLET PO SCH ×2 (08:38→20:43)
[2022-11-10] MEDS: ASPIRIN 81 MG CHEWABLE TABLET PO SCH (08:38)
[2022-11-10] MEDS: NYSTATIN 500,000 UNITS/5 ML SUSPENSION UDCUP PO SCH ×2 (08:38→20:45)
[2022-11-10] MEDS: TraMADol HCL 50 MG TABLET PO PRN ×2 (08:38→16:23)
[2022-11-10] MEDS: OXYGEN THERAPY IH SCH ×2 (08:38→20:41)
[2022-11-10] MEDS: NYSTATIN 30 GM CREAM TP SCH ×2 (08:39→20:46)
[2022-11-10 08:44] LABS: BACTERIA,URINE None Seen /HPF (None Seen); CALCIUM OXALATE CRYSTALS,UR Few /LPF (None Seen); RBC,URINE 51-100 /HPF (0-2); SQUAMOUS EPITHELIAL CELL,UR Few /LPF (None Seen)
[2022-11-10] MEDS: METOPROLOL SUCCINATE 25 MG ER TABLET PO SCH ×2 (09:26→20:44)
[2022-11-10] MEDS: APIXABAN 5 MG TABLET PO SCH ×2 (09:26→20:43)
[2022-11-10 11:08] VITALS: BP 111/70
[2022-11-10 20:52] VITALS: BP 137/94
[2022-11-11 00:28] VITALS: BP 109/63
[2022-11-11] MEDS: TraMADol HCL 50 MG TABLET PO PRN ×3 (00:51→17:14)
[2022-11-11 07:54] VITALS: BP 104/55
[2022-11-11] MEDS: NYSTATIN 30 GM CREAM TP SCH ×2 (09:00→20:47)
[2022-11-11] MEDS: DOCUSATE SODIUM 100 MG CAPSULE PO SCH ×2 (09:00→20:48)
[2022-11-11] MEDS: NYSTATIN 500,000 UNITS/5 ML SUSPENSION UDCUP PO SCH ×2 (09:00→20:47)
[2022-11-11] MEDS: GABAPENTIN 300 MG CAPSULE PO SCH ×3 (09:05→20:46)
[2022-11-11] MEDS: FAMOTIDINE 20 MG TABLET PO SCH ×2 (09:05→20:47)
[2022-11-11] MEDS: APIXABAN 5 MG TABLET PO SCH ×2 (09:05→20:47)
[2022-11-11] MEDS: ASPIRIN 81 MG CHEWABLE TABLET PO SCH (09:05)
[2022-11-11] MEDS: OXYGEN THERAPY IH SCH ×2 (09:05→20:46)
[2022-11-11] MEDS: DULoxetine HCL 30 MG CAPSULE PO SCH (09:06)
[2022-11-11] MEDS: NITROFURANTOIN MONOHYD/M-CRYST 100 MG CAPSULE [MACROBID] PO SCH ×2 (09:06→20:47)
[2022-11-11] MEDS: METOPROLOL SUCCINATE 25 MG ER TABLET PO SCH ×2 (09:06→20:47)
[2022-11-11] MEDS: BusPIRone HCL 10 MG TABLET PO SCH ×3 (09:06→20:47)
[2022-11-11 11:22] VITALS: BP 113/73
[2022-11-11 15:27] VITALS: BP 109/67
[2022-11-11 19:28] VITALS: BP 111/61
[2022-11-11 23:27] VITALS: BP 105/62
[2022-11-12] MEDS: TraMADol HCL 50 MG TABLET PO PRN ×3 (01:21→21:37)
[2022-11-12 05:54] VITALS: BP 112/75
[2022-11-12] MEDS: OXYGEN THERAPY IH SCH ×2 (08:00→21:33)
[2022-11-12 08:08] VITALS: BP 107/68
[2022-11-12] MEDS: NYSTATIN 30 GM CREAM TP SCH ×2 (09:00→21:00)
[2022-11-12] MEDS: NYSTATIN 500,000 UNITS/5 ML SUSPENSION UDCUP PO SCH ×3 (09:00→21:00)
[2022-11-12] MEDS: GABAPENTIN 300 MG CAPSULE PO SCH ×3 (10:52→21:32)
[2022-11-12] MEDS: ASPIRIN 81 MG CHEWABLE TABLET PO SCH (10:52)
[2022-11-12] MEDS: NITROFURANTOIN MONOHYD/M-CRYST 100 MG CAPSULE [MACROBID] PO SCH ×2 (10:52→21:32)
[2022-11-12] MEDS: FAMOTIDINE 20 MG TABLET PO SCH ×2 (10:53→21:32)
[2022-11-12] MEDS: DOCUSATE SODIUM 100 MG CAPSULE PO SCH ×2 (10:53→21:00)
[2022-11-12] MEDS: BusPIRone HCL 10 MG TABLET PO SCH ×3 (10:53→21:32)
[2022-11-12] MEDS: DULoxetine HCL 30 MG CAPSULE PO SCH (10:53)
[2022-11-12] MEDS: APIXABAN 5 MG TABLET PO SCH ×2 (11:46→21:32)
[2022-11-12] MEDS: METOPROLOL SUCCINATE 25 MG ER TABLET PO SCH ×2 (11:46→21:33)
[2022-11-12 12:15] VITALS: BP 116/70
[2022-11-12 16:18] VITALS: BP 124/63
[2022-11-12 20:00] VITALS: BP 123/69
[2022-11-13] VITALS: BP 110/76
[2022-11-13] MEDS ORDERED: GABAPENTIN 100 MG CAPSULE PO ONE (01:15)
[2022-11-13 04:00] VITALS: BP 106/69
[2022-11-13] MEDS: OXYGEN THERAPY IH SCH ×2 (08:00→20:38)
[2022-11-13] MEDS: FAMOTIDINE 20 MG TABLET PO SCH ×2 (08:19→20:37)
[2022-11-13] MEDS: ASPIRIN 81 MG CHEWABLE TABLET PO SCH (08:19)
[2022-11-13] MEDS: BusPIRone HCL 10 MG TABLET PO SCH ×3 (08:19→20:37)
[2022-11-13] MEDS: NITROFURANTOIN MONOHYD/M-CRYST 100 MG CAPSULE [MACROBID] PO SCH ×2 (08:19→20:38)
[2022-11-13] MEDS: GABAPENTIN 300 MG CAPSULE PO SCH ×3 (08:19→20:37)
[2022-11-13] MEDS: APIXABAN 5 MG TABLET PO SCH ×2 (08:19→20:37)
[2022-11-13] MEDS: DULoxetine HCL 30 MG CAPSULE PO SCH (08:20)
[2022-11-13] MEDS: DOCUSATE SODIUM 100 MG CAPSULE PO SCH ×2 (08:20→20:37)
[2022-11-13] MEDS: NYSTATIN 500,000 UNITS/5 ML SUSPENSION UDCUP PO SCH ×2 (08:20→20:38)
[2022-11-13] MEDS: TraMADol HCL 50 MG TABLET PO PRN ×2 (08:20→16:16)
[2022-11-13] MEDS: METOPROLOL SUCCINATE 25 MG ER TABLET PO SCH ×2 (08:20→20:37)
[2022-11-13] MEDS: NYSTATIN 30 GM CREAM TP SCH ×2 (08:26→20:38)
[2022-11-13 11:32] VITALS: BP 115/72
[2022-11-13 15:22] VITALS: BP 141/77
[2022-11-13 20:10] VITALS: BP 121/67
[2022-11-14 00:21] VITALS: BP 150/105
[2022-11-14] MEDS: TraMADol HCL 50 MG TABLET PO PRN ×3 (00:47→17:20)
[2022-11-14] MEDS: OXYGEN THERAPY IH SCH ×3 (08:00→20:00)
[2022-11-14] MEDS: GABAPENTIN 300 MG CAPSULE PO SCH ×3 (08:25→21:35)
[2022-11-14] MEDS: ASPIRIN 81 MG CHEWABLE TABLET PO SCH (08:25)
[2022-11-14] MEDS: FAMOTIDINE 20 MG TABLET PO SCH ×2 (08:25→21:35)
[2022-11-14] MEDS: NITROFURANTOIN MONOHYD/M-CRYST 100 MG CAPSULE [MACROBID] PO SCH ×2 (08:25→21:35)
[2022-11-14] MEDS: BusPIRone HCL 10 MG TABLET PO SCH ×3 (08:25→21:35)
[2022-11-14] MEDS: NYSTATIN 500,000 UNITS/5 ML SUSPENSION UDCUP PO SCH ×2 (08:26→21:35)
[2022-11-14] MEDS: METOPROLOL SUCCINATE 25 MG ER TABLET PO SCH ×2 (08:26→21:35)
[2022-11-14] MEDS: DOCUSATE SODIUM 100 MG CAPSULE PO SCH ×2 (08:26→21:00)
[2022-11-14] MEDS: DULoxetine HCL 30 MG CAPSULE PO SCH (08:26)
[2022-11-14] MEDS: NYSTATIN 30 GM CREAM TP SCH ×2 (08:27→21:00)
[2022-11-14] MEDS: APIXABAN 5 MG TABLET PO SCH ×2 (08:28→21:35)
[2022-11-14 11:23] VITALS: BP 117/55
[2022-11-14] MEDS ORDERED: KETAMINE HCL 50 MG/ML 10 ML VIAL IVP ONE (12:00)
[2022-11-14 12:59] LABS: BASOPHILS % (AUTO) 0.8 % (0.0-2.0); EOSINOPHILS % (AUTO) 3.4 % (1.0-6.0); HEMATOCRIT 40.1 % (41-53); HEMOGLOBIN 13.3 g/dL (13.5-17.5); LYMPHOCYTES # (AUTO) 1.9 K/uL (1.0-4.8); LYMPHOCYTES % (AUTO) 24.9 % (22.0-44.0); MEAN CORPUSCULAR HEMOGLOBIN 27.2 pg (26.0-34.0); MEAN CORPUSCULAR HGB CONC 33.3 G/dL (31.0-37.0); MEAN CORPUSCULAR VOLUME 82 fL (80-100); MONOCYTES # (AUTO) 0.7 K/uL (0.1-1.0); MONOCYTES % (AUTO) 9.4 % (2.0-9.0); NEUTROPHILS # (AUTO) 4.7 K/uL (1.8-7.7); NEUTROPHILS % (AUTO) 61.5 % (40.0-70.0); PLATELET COUNT (AUTO) 282 K/uL (150-450); RED CELL DISTRIBUTION WIDTH 14.1 % (11.5-14.5)
[2022-11-14] MEDS ORDERED: SODIUM CL IRRIG SOLN BAG 3,000 ML IRRIG ONE (15:08)
[2022-11-14] MEDS ORDERED: SODIUM CL IRRIG SOLN BAG 0 ML IRRIG ONE (15:08)
[2022-11-14 15:10] VITALS: BP 133/71
[2022-11-14] MEDS ORDERED: SODIUM CHLORIDE 0.9% 0 ML ONE (15:10)
[2022-11-14] MEDS ORDERED: RINGERS SOLUTION,LACTATED 1,000 ML IV ONE ×2 (15:15→15:22)
[2022-11-14] MEDS ORDERED: SODIUM CHLORIDE 0.9% 1,000 ML ONE (16:02)
[2022-11-14] MEDS ORDERED: ACETAMINOPHEN 1000 MG/ISO-OSM 100 ML IV ONE ×2 (16:34→16:45)
[2022-11-14 20:17] VITALS: BP 114/74
[2022-11-14] MEDS: BETHANECHOL CHLORIDE 25 MG TABLET PO SCH (21:35)
[2022-11-14] MEDS: TAMSULOSIN HCL 0.4 MG CAPSULE PO SCH (21:35)
[2022-11-14] MEDS ORDERED: HYDROmorphone HCL 2 MG/ML SYRINGE IVP ONE (22:15)
[2022-11-15 00:05] VITALS: BP 132/77
[2022-11-15] MEDS: TraMADol HCL 50 MG TABLET PO PRN ×3 (02:35→18:05)
[2022-11-15 04:06] VITALS: BP 93/50
[2022-11-15] MEDS: OXYGEN THERAPY IH SCH ×4 (08:00→20:02)
[2022-11-15] MEDS: NYSTATIN 30 GM CREAM TP SCH ×2 (09:00→20:22)
[2022-11-15] MEDS: NYSTATIN 500,000 UNITS/5 ML SUSPENSION UDCUP PO SCH ×2 (09:00→20:22)
[2022-11-15] MEDS: DOCUSATE SODIUM 100 MG CAPSULE PO SCH ×2 (09:00→20:22)
[2022-11-15] MEDS: FAMOTIDINE 20 MG TABLET PO SCH ×2 (10:18→20:15)
[2022-11-15] MEDS: GABAPENTIN 300 MG CAPSULE PO SCH ×3 (10:18→20:16)
[2022-11-15] MEDS: APIXABAN 5 MG TABLET PO SCH ×2 (10:19→20:14)
[2022-11-15] MEDS: METOPROLOL SUCCINATE 25 MG ER TABLET PO SCH ×2 (10:19→20:14)
[2022-11-15] MEDS: BETHANECHOL CHLORIDE 25 MG TABLET PO SCH ×3 (10:19→20:13)
[2022-11-15] MEDS: TAMSULOSIN HCL 0.4 MG CAPSULE PO SCH ×2 (10:19→20:15)
[2022-11-15] MEDS: NITROFURANTOIN MONOHYD/M-CRYST 100 MG CAPSULE [MACROBID] PO SCH (10:19)
[2022-11-15] MEDS: ASPIRIN 81 MG CHEWABLE TABLET PO SCH (10:19)
[2022-11-15] MEDS: DULoxetine HCL 30 MG CAPSULE PO SCH (10:19)
[2022-11-15] MEDS: BusPIRone HCL 10 MG TABLET PO SCH ×3 (10:19→20:14)
[2022-11-15 11:38] VITALS: BP 111/66
[2022-11-15 16:24] VITALS: BP 112/57
[2022-11-15 20:39] VITALS: BP 113/68
[2022-11-16 00:22] VITALS: BP 118/69
[2022-11-16 07:13] VITALS: BP 102/59
[2022-11-16] MEDS: OXYGEN THERAPY IH SCH ×2 (08:00→20:34)
[2022-11-16] MEDS: BusPIRone HCL 10 MG TABLET PO SCH ×3 (09:00→20:32)
[2022-11-16] MEDS: APIXABAN 5 MG TABLET PO SCH ×2 (09:00→20:31)
[2022-11-16] MEDS: BETHANECHOL CHLORIDE 25 MG TABLET PO SCH ×3 (09:00→20:31)
[2022-11-16] MEDS: DULoxetine HCL 30 MG CAPSULE PO SCH (09:00)
[2022-11-16] MEDS: TAMSULOSIN HCL 0.4 MG CAPSULE PO SCH ×2 (09:00→20:31)
[2022-11-16] MEDS: NYSTATIN 500,000 UNITS/5 ML SUSPENSION UDCUP PO SCH ×2 (09:00→20:34)
[2022-11-16] MEDS: DOCUSATE SODIUM 100 MG CAPSULE PO SCH ×2 (09:00→20:34)
[2022-11-16] MEDS: METOPROLOL SUCCINATE 25 MG ER TABLET PO SCH ×2 (09:00→20:31)
[2022-11-16] MEDS: GABAPENTIN 300 MG CAPSULE PO SCH ×3 (09:00→20:30)
[2022-11-16] MEDS: ASPIRIN 81 MG CHEWABLE TABLET PO SCH (09:00)
[2022-11-16] MEDS: FAMOTIDINE 20 MG TABLET PO SCH ×2 (09:00→20:30)
[2022-11-16] MEDS: NYSTATIN 30 GM CREAM TP SCH ×2 (09:00→20:34)
[2022-11-16] MEDS: TraMADol HCL 50 MG TABLET PO PRN ×2 (11:23→20:32)
[2022-11-16 12:17] VITALS: BP 114/63
[2022-11-16 15:48] VITALS: BP 114/74
[2022-11-16 20:36] VITALS: BP 116/61
[2022-11-17 00:51] VITALS: BP 118/64
[2022-11-17] MEDS: TraMADol HCL 50 MG TABLET PO PRN ×3 (04:32→20:56)
[2022-11-17 05:33] VITALS: BP 112/65
[2022-11-17 07:02] LABS: BASOPHILS % (AUTO) 0.7 % (0.0-2.0); EOSINOPHILS % (AUTO) 4.3 % (1.0-6.0); HEMATOCRIT 38.7 % (41-53); HEMOGLOBIN 12.9 g/dL (13.5-17.5); LYMPHOCYTES # (AUTO) 2.6 K/uL (1.0-4.8); LYMPHOCYTES % (AUTO) 34.2 % (22.0-44.0); MEAN CORPUSCULAR HEMOGLOBIN 27.2 pg (26.0-34.0); MEAN CORPUSCULAR HGB CONC 33.3 G/dL (31.0-37.0); MEAN CORPUSCULAR VOLUME 82 fL (80-100); MONOCYTES # (AUTO) 0.6 K/uL (0.1-1.0); NEUTROPHILS # (AUTO) 4.1 K/uL (1.8-7.7); NEUTROPHILS % (AUTO) 52.8 % (40.0-70.0); PLATELET COUNT (AUTO) 268 K/uL (150-450); RED BLOOD CELL COUNT(AUTO) 4.74 MIL/uL (4.50-5.90); RED CELL DISTRIBUTION WIDTH 14.4 % (11.5-14.5)
[2022-11-17 07:16] LABS: ANION GAP 10 mmol/L (8-16); CARBON DIOXIDE 28 mmol/L (22-29); CHLORIDE 100 mmol/L (98-107); CREATININE 0.94 mg/dL (0.60-1.30); GLOMERULAR FILTR. RATE CALC > 60 mL/min (>60); GLUCOSE,RANDOM 104 mg/dL (70-110); POTASSIUM 4.1 mmol/L (3.5-5.1); SODIUM SERUM 138 mmol/L (136-145); UREA NITROGEN, BLOOD 14 mg/dL (7-18)
[2022-11-17] MEDS: OXYGEN THERAPY IH SCH ×2 (08:00→19:48)
[2022-11-17] MEDS: NYSTATIN 30 GM CREAM TP SCH ×2 (09:00→21:00)
[2022-11-17] MEDS: NYSTATIN 500,000 UNITS/5 ML SUSPENSION UDCUP PO SCH ×2 (09:00→21:00)
[2022-11-17] MEDS: ASPIRIN 81 MG CHEWABLE TABLET PO SCH (09:14)
[2022-11-17] MEDS: DULoxetine HCL 30 MG CAPSULE PO SCH (09:16)
[2022-11-17] MEDS: DOCUSATE SODIUM 100 MG CAPSULE PO SCH ×2 (09:16→20:53)
[2022-11-17] MEDS: METOPROLOL SUCCINATE 25 MG ER TABLET PO SCH ×2 (09:17→20:57)
[2022-11-17] MEDS: GABAPENTIN 300 MG CAPSULE PO SCH ×3 (09:17→20:56)
[2022-11-17] MEDS: APIXABAN 5 MG TABLET PO SCH ×2 (09:17→20:57)
[2022-11-17] MEDS: BETHANECHOL CHLORIDE 25 MG TABLET PO SCH ×3 (09:18→21:26)
[2022-11-17] MEDS: TAMSULOSIN HCL 0.4 MG CAPSULE PO SCH ×2 (09:18→20:57)
[2022-11-17] MEDS: BusPIRone HCL 10 MG TABLET PO SCH ×3 (09:18→21:26)
[2022-11-17] MEDS: FAMOTIDINE 20 MG TABLET PO SCH ×2 (09:21→20:57)
[2022-11-17 11:09] VITALS: BP 101/58
[2022-11-17 16:30] VITALS: BP 115/59
[2022-11-17 20:00] VITALS: BP 113/62
[2022-11-18] VITALS: BP 119/67
[2022-11-18 04:00] VITALS: BP 107/61
[2022-11-18] MEDS: TraMADol HCL 50 MG TABLET PO PRN ×3 (05:14→21:51)
[2022-11-18] MEDS: DOCUSATE SODIUM 100 MG CAPSULE PO SCH ×2 (09:00→21:00)
[2022-11-18] MEDS: NYSTATIN 500,000 UNITS/5 ML SUSPENSION UDCUP PO SCH ×2 (09:00→21:00)
[2022-11-18] MEDS: NYSTATIN 30 GM CREAM TP SCH ×2 (09:00→21:00)
[2022-11-18] MEDS: GABAPENTIN 300 MG CAPSULE PO SCH ×3 (09:20→21:51)
[2022-11-18] MEDS: OXYGEN THERAPY IH SCH ×2 (09:20→21:52)
[2022-11-18] MEDS: APIXABAN 5 MG TABLET PO SCH ×2 (09:20→21:51)
[2022-11-18] MEDS: FAMOTIDINE 20 MG TABLET PO SCH ×2 (09:20→21:51)
[2022-11-18] MEDS: METOPROLOL SUCCINATE 25 MG ER TABLET PO SCH ×2 (09:20→21:51)
[2022-11-18] MEDS: BETHANECHOL CHLORIDE 25 MG TABLET PO SCH ×3 (09:20→21:51)
[2022-11-18] MEDS: TAMSULOSIN HCL 0.4 MG CAPSULE PO SCH ×2 (09:20→21:51)
[2022-11-18] MEDS: ASPIRIN 81 MG CHEWABLE TABLET PO SCH (09:20)
[2022-11-18] MEDS: DULoxetine HCL 30 MG CAPSULE PO SCH (09:21)
[2022-11-18] MEDS: BusPIRone HCL 10 MG TABLET PO SCH ×3 (09:21→21:51)
[2022-11-18 11:15] VITALS: BP 118/61
[2022-11-18 16:18] VITALS: BP 123/59
[2022-11-18 20:08] VITALS: BP 115/63
[2022-11-19 00:21] VITALS: BP 111/66
[2022-11-19] MEDS: OXYGEN THERAPY IH SCH ×2 (08:00→20:35)
[2022-11-19 08:09] VITALS: BP 98/60
[2022-11-19] MEDS: APIXABAN 5 MG TABLET PO SCH ×2 (08:47→20:36)
[2022-11-19] MEDS: TAMSULOSIN HCL 0.4 MG CAPSULE PO SCH ×2 (08:47→20:35)
[2022-11-19] MEDS: DULoxetine HCL 30 MG CAPSULE PO SCH (08:47)
[2022-11-19] MEDS: METOPROLOL SUCCINATE 25 MG ER TABLET PO SCH ×2 (08:47→20:36)
[2022-11-19] MEDS: BusPIRone HCL 10 MG TABLET PO SCH ×3 (08:47→20:35)
[2022-11-19] MEDS: BETHANECHOL CHLORIDE 25 MG TABLET PO SCH ×3 (08:47→20:35)
[2022-11-19] MEDS: DOCUSATE SODIUM 100 MG CAPSULE PO SCH ×2 (08:48→20:36)
[2022-11-19] MEDS: FAMOTIDINE 20 MG TABLET PO SCH ×2 (08:48→20:36)
[2022-11-19] MEDS: TraMADol HCL 50 MG TABLET PO PRN ×2 (08:48→17:55)
[2022-11-19] MEDS: GABAPENTIN 300 MG CAPSULE PO SCH ×3 (08:48→20:35)
[2022-11-19] MEDS: NYSTATIN 30 GM CREAM TP SCH ×2 (08:48→20:36)
[2022-11-19] MEDS: NYSTATIN 500,000 UNITS/5 ML SUSPENSION UDCUP PO SCH ×2 (08:48→20:36)
[2022-11-19] MEDS: ASPIRIN 81 MG CHEWABLE TABLET PO SCH (08:48)
[2022-11-19 13:08] VITALS: BP 125/78
[2022-11-19 15:41] VITALS: BP 132/74
[2022-11-19 17:44] LABS: BASOPHILS % (AUTO) 0.8 % (0.0-2.0); EOSINOPHILS % (AUTO) 2.9 % (1.0-6.0); HEMATOCRIT 38.3 % (41-53); LYMPHOCYTES # (AUTO) 1.8 K/uL (1.0-4.8); LYMPHOCYTES % (AUTO) 21.1 % (22.0-44.0); MEAN CORPUSCULAR HEMOGLOBIN 27.9 pg (26.0-34.0); MEAN CORPUSCULAR HGB CONC 34.1 G/dL (31.0-37.0); MEAN CORPUSCULAR VOLUME 82 fL (80-100); MONOCYTES # (AUTO) 0.7 K/uL (0.1-1.0); MONOCYTES % (AUTO) 8.4 % (2.0-9.0); NEUTROPHILS # (AUTO) 5.7 K/uL (1.8-7.7); NEUTROPHILS % (AUTO) 66.8 % (40.0-70.0); PLATELET COUNT (AUTO) 259 K/uL (150-450); RED BLOOD CELL COUNT(AUTO) 4.67 MIL/uL (4.50-5.90); RED CELL DISTRIBUTION WIDTH 14.5 % (11.5-14.5)
[2022-11-19 17:56] LABS: ANION GAP 7 mmol/L (8-16); CALCIUM, TOTAL 8.7 mg/dL (8.8-10.5); CARBON DIOXIDE 29 mmol/L (22-29); CHLORIDE 100 mmol/L (98-107); CREATININE 0.95 mg/dL (0.60-1.30); GLOMERULAR FILTR. RATE CALC > 60 mL/min (>60); GLUCOSE,RANDOM 107 mg/dL (70-110); POTASSIUM 4.3 mmol/L (3.5-5.1); SODIUM SERUM 136 mmol/L (136-145); UREA NITROGEN, BLOOD 15 mg/dL (7-18)
[2022-11-19 20:20] VITALS: BP 112/63
[2022-11-20 00:12] VITALS: BP 113/64
[2022-11-20] MEDS: TraMADol HCL 50 MG TABLET PO PRN ×3 (02:24→18:42)
[2022-11-20] MEDS: OXYGEN THERAPY IH SCH ×2 (08:00→21:16)
[2022-11-20] MEDS: DULoxetine HCL 30 MG CAPSULE PO SCH (08:53)
[2022-11-20] MEDS: BusPIRone HCL 10 MG TABLET PO SCH ×3 (08:54→21:16)
[2022-11-20] MEDS: FAMOTIDINE 20 MG TABLET PO SCH ×2 (08:54→21:16)
[2022-11-20] MEDS: METOPROLOL SUCCINATE 25 MG ER TABLET PO SCH ×2 (08:54→21:16)
[2022-11-20] MEDS: APIXABAN 5 MG TABLET PO SCH ×2 (08:54→21:16)
[2022-11-20] MEDS: TAMSULOSIN HCL 0.4 MG CAPSULE PO SCH ×2 (08:54→21:16)
[2022-11-20] MEDS: BETHANECHOL CHLORIDE 25 MG TABLET PO SCH ×3 (08:54→21:16)
[2022-11-20] MEDS: NYSTATIN 500,000 UNITS/5 ML SUSPENSION UDCUP PO SCH ×2 (08:54→21:00)
[2022-11-20] MEDS: GABAPENTIN 300 MG CAPSULE PO SCH ×3 (08:54→21:16)
[2022-11-20] MEDS: ASPIRIN 81 MG CHEWABLE TABLET PO SCH (08:54)
[2022-11-20] MEDS: DOCUSATE SODIUM 100 MG CAPSULE PO SCH ×2 (08:55→21:00)
[2022-11-20] MEDS: NYSTATIN 30 GM CREAM TP SCH ×2 (08:55→21:00)
[2022-11-20 10:43] VITALS: BP 121/78
[2022-11-20 15:48] VITALS: BP 109/67
[2022-11-20 20:09] VITALS: BP 118/66
[2022-11-21 00:28] VITALS: BP 121/71
[2022-11-21] MEDS: TraMADol HCL 50 MG TABLET PO PRN ×2 (02:53→16:18)
[2022-11-21] MEDS: OXYGEN THERAPY IH SCH (08:00)
[2022-11-21 08:05] VITALS: BP 119/64
[2022-11-21] MEDS: NYSTATIN 30 GM CREAM TP SCH ×2 (09:00→21:00)
[2022-11-21] MEDS: BusPIRone HCL 10 MG TABLET PO SCH ×3 (10:17→21:38)
[2022-11-21] MEDS: BETHANECHOL CHLORIDE 25 MG TABLET PO SCH ×3 (10:17→21:39)
[2022-11-21] MEDS: APIXABAN 5 MG TABLET PO SCH ×2 (10:17→21:37)
[2022-11-21] MEDS: TAMSULOSIN HCL 0.4 MG CAPSULE PO SCH ×2 (10:17→21:40)
[2022-11-21] MEDS: ASPIRIN 81 MG CHEWABLE TABLET PO SCH (10:17)
[2022-11-21] MEDS: DOCUSATE SODIUM 100 MG CAPSULE PO SCH ×2 (10:17→21:38)
[2022-11-21] MEDS: FAMOTIDINE 20 MG TABLET PO SCH ×2 (10:17→21:36)
[2022-11-21] MEDS: DULoxetine HCL 30 MG CAPSULE PO SCH (10:17)
[2022-11-21] MEDS: GABAPENTIN 300 MG CAPSULE PO SCH ×3 (10:17→21:39)
[2022-11-21] MEDS: METOPROLOL SUCCINATE 25 MG ER TABLET PO SCH ×2 (10:17→21:36)
[2022-11-21] MEDS: NYSTATIN 500,000 UNITS/5 ML SUSPENSION UDCUP PO SCH ×2 (10:18→21:00)
[2022-11-21 12:00] VITALS: BP 104/67
[2022-11-21 16:00] VITALS: BP 113/63
[2022-11-21 19:54] VITALS: BP 107/69
[2022-11-22 00:02] VITALS: BP 121/73
[2022-11-22] MEDS: TraMADol HCL 50 MG TABLET PO PRN ×3 (00:38→23:36)
[2022-11-22 04:38] VITALS: BP 119/64
[2022-11-22 08:00] VITALS: BP 100/52
[2022-11-22] MEDS: OXYGEN THERAPY IH SCH ×2 (08:00→20:00)
[2022-11-22] MEDS: TAMSULOSIN HCL 0.4 MG CAPSULE PO SCH ×2 (08:03→20:13)
[2022-11-22] MEDS: BETHANECHOL CHLORIDE 25 MG TABLET PO SCH ×3 (08:03→20:15)
[2022-11-22] MEDS: BusPIRone HCL 10 MG TABLET PO SCH ×3 (08:03→20:13)
[2022-11-22] MEDS: GABAPENTIN 300 MG CAPSULE PO SCH ×3 (08:03→20:13)
[2022-11-22] MEDS: DULoxetine HCL 30 MG CAPSULE PO SCH (08:03)
[2022-11-22] MEDS: DOCUSATE SODIUM 100 MG CAPSULE PO SCH ×2 (08:03→20:17)
[2022-11-22] MEDS: APIXABAN 5 MG TABLET PO SCH ×2 (08:03→20:13)
[2022-11-22] MEDS: FAMOTIDINE 20 MG TABLET PO SCH ×2 (08:03→20:14)
[2022-11-22] MEDS: METOPROLOL SUCCINATE 25 MG ER TABLET PO SCH ×2 (08:04→20:13)
[2022-11-22] MEDS: ASPIRIN 81 MG CHEWABLE TABLET PO SCH (08:04)
[2022-11-22] MEDS: NYSTATIN 500,000 UNITS/5 ML SUSPENSION UDCUP PO SCH ×2 (09:00→20:17)
[2022-11-22] MEDS: NYSTATIN 30 GM CREAM TP SCH ×2 (09:00→20:17)
[2022-11-22 11:58] VITALS: BP 108/63
[2022-11-22 15:16] VITALS: BP 113/69
[2022-11-22 20:00] VITALS: BP 116/80
[2022-11-22] MEDS: ZOLPIDEM TARTRATE 5 MG TABLET PO PRN (23:36)
[2022-11-23 00:15] VITALS: BP 94/73
[2022-11-23] MEDS: OXYGEN THERAPY IH SCH (08:00)
[2022-11-23 08:31] VITALS: BP 101/59
[2022-11-23] MEDS: NYSTATIN 500,000 UNITS/5 ML SUSPENSION UDCUP PO SCH (09:00)
[2022-11-23] MEDS: DOCUSATE SODIUM 100 MG CAPSULE PO SCH (09:00)
[2022-11-23] MEDS: NYSTATIN 30 GM CREAM TP SCH (09:00)
[2022-11-23] MEDS: DULoxetine HCL 30 MG CAPSULE PO SCH (09:21)
[2022-11-23] MEDS: GABAPENTIN 300 MG CAPSULE PO SCH ×2 (09:22→16:18)
[2022-11-23] MEDS: METOPROLOL SUCCINATE 25 MG ER TABLET PO SCH (09:22)
[2022-11-23] MEDS: FAMOTIDINE 20 MG TABLET PO SCH (09:22)
[2022-11-23] MEDS: BusPIRone HCL 10 MG TABLET PO SCH ×2 (09:22→16:18)
[2022-11-23] MEDS: BETHANECHOL CHLORIDE 25 MG TABLET PO SCH ×2 (09:22→16:18)
[2022-11-23] MEDS: TAMSULOSIN HCL 0.4 MG CAPSULE PO SCH (09:23)
[2022-11-23] MEDS: TraMADol HCL 50 MG TABLET PO PRN (09:23)
[2022-11-23] MEDS: ASPIRIN 81 MG CHEWABLE TABLET PO SCH (09:23)
[2022-11-23] MEDS: APIXABAN 5 MG TABLET PO SCH (09:23)
[2022-11-23] MEDS: NITROGLYCERIN 0.4 MG SUBLINGUAL TABLET #25 SL PRN ×2 (16:18→16:31)
[2022-11-23 17:09] LABS: BASOPHILS % (AUTO) 0.4 % (0.0-2.0); EOSINOPHILS % (AUTO) 0.8 % (1.0-6.0); HEMATOCRIT 40.7 % (41-53); HEMOGLOBIN 13.7 g/dL (13.5-17.5); LYMPHOCYTES # (AUTO) 1.5 K/uL (1.0-4.8); LYMPHOCYTES % (AUTO) 15.2 % (22.0-44.0); MEAN CORPUSCULAR HEMOGLOBIN 27.5 pg (26.0-34.0); MEAN CORPUSCULAR HGB CONC 33.6 G/dL (31.0-37.0); MEAN CORPUSCULAR VOLUME 82 fL (80-100); MONOCYTES # (AUTO) 0.9 K/uL (0.1-1.0); MONOCYTES % (AUTO) 8.8 % (2.0-9.0); NEUTROPHILS # (AUTO) 7.6 K/uL (1.8-7.7); NEUTROPHILS % (AUTO) 74.8 % (40.0-70.0); PLATELET COUNT (AUTO) 272 K/uL (150-450); RED BLOOD CELL COUNT(AUTO) 4.97 MIL/uL (4.50-5.90); RED CELL DISTRIBUTION WIDTH 14.3 % (11.5-14.5)
[2022-11-23 17:15] LABS: ANION GAP 10 mmol/L (8-16); CALCIUM, TOTAL 9.1 mg/dL (8.8-10.5); CARBON DIOXIDE 26 mmol/L (22-29); CHLORIDE 101 mmol/L (98-107); CREATININE 1.11 mg/dL (0.60-1.30); GLOMERULAR FILTR. RATE CALC > 60 mL/min (>60); GLUCOSE,RANDOM 132 mg/dL (70-110); POTASSIUM 4.3 mmol/L (3.5-5.1); SODIUM SERUM 137 mmol/L (136-145); UREA NITROGEN, BLOOD 15 mg/dL (7-18)
== END 2022-11-23 09:00 | DRG 669 ==
LOC: EMS 14:50 → 5S 20:00 → 6S 08-16 18:35 → 5S 08-28 18:56
PROVIDERS: ADMIT Internal Medicine; ATTEND Internal Medicine
PROC: 0TJB8ZZ Inspection of Bladder, Via Natural or Artificial Opening Endoscopic (ICD-10-PCS; 2022-10-08)
PROC: 0T5B8ZZ Destruction of Bladder, Via Natural or Artificial Opening Endoscopic (ICD-10-PCS; 2022-10-12)
PROC: 0TBB8ZX Excision of Bladder, Via Natural or Artificial Opening Endoscopic, Diagnostic (ICD-10-PCS; 2022-10-12)
PROC: 0T2BX0Z Change Drainage Device in Bladder, External Approach (ICD-10-PCS; 2022-10-21)
PROC: 0TJB8ZZ Inspection of Bladder, Via Natural or Artificial Opening Endoscopic (ICD-10-PCS; 2022-10-21)
PROC: 0T9B80Z Drainage of Bladder with Drainage Device, Via Natural or Artificial Opening Endoscopic (ICD-10-PCS; principal; 2022-11-14 15:45)
DX: N31.9 Neuromuscular dysfunction of bladder, unspecified (principal); F11.20 Opioid dependence, uncomplicated; I48.19 Other persistent atrial fibrillation; N39.0 Urinary tract infection, site not specified; F33.9 Major depressive disorder, recurrent, unspecified; Z16.24 Resistance to multiple antibiotics; F33.2 Major depressive disorder, recurrent severe without psychotic features; I48.0 Paroxysmal atrial fibrillation; I10 Essential (primary) hypertension; E66.9 Obesity, unspecified; F41.9 Anxiety disorder, unspecified; G89.29 Other chronic pain; R33.8 Other retention of urine; I49.5 Sick sinus syndrome; B35.6 Tinea cruris; F43.10 Post-traumatic stress disorder, unspecified; F41.1 Generalized anxiety disorder; K59.09 Other constipation; N35.919 Unspecified urethral stricture, male, unspecified site; F41.0 Panic disorder [episodic paroxysmal anxiety]; Z86.74 Personal history of sudden cardiac arrest; Z68.39 Body mass index [BMI] 39.0-39.9, adult; I25.2 Old myocardial infarction; Z86.711 Personal history of pulmonary embolism; Z98.1 Arthrodesis status; Z95.0 Presence of cardiac pacemaker; Z91.81 History of falling; Z87.442 Personal history of urinary calculi; Z87.440 Personal history of urinary (tract) infections; Z90.49 Acquired absence of other specified parts of digestive tract; Z86.73 Personal history of transient ischemic attack (TIA), and cerebral infarction without residual deficits; Z86.718 Personal history of other venous thrombosis and embolism; Z83.3 Family history of diabetes mellitus; Z82.3 Family history of stroke; Z79.899 Other long term (current) drug therapy; Z79.01 Long term (current) use of anticoagulants; Z76.5 Malingerer [conscious simulation]; Z82.49 Family history of ischemic heart disease and other diseases of the circulatory system; Z88.8 Allergy status to other drugs, medicaments and biological substances; Z91.040 Latex allergy status; Z91.013 Allergy to seafood; W18.39XA Other fall on same level, initial encounter; Y93.89 Activity, other specified; Y92.89 Other specified places as the place of occurrence of the external cause; Y99.8 Other external cause status; S30.1XXA Contusion of abdominal wall, initial encounter
CPT/HCPCS: 71045; 76705; 76881; 80048; 80053; 81001; 81002; 82550; 82962; 83880; 84484; 85025; 85379; 85610; 87081; 87086; 87186; 87481; 88305; 93005; 93306; 97162; 97530; 99285; J0131; J0744; J1100; J1170; J1885; J1956; J2060; J2250; J2270; J2405; J2704; J2920; J3010; J3490; J7030; J7040; J7050; J7120; Q9967; 36415-L1; 36415-TC; U0003; Z7610

== ENCOUNTER 2022-11-30 21:21 | Emergency (ER) | payer OTHER ==
[~2022-11-30 21:21] MED LIST changes: -ACET-2080 PO
[2022-11-30] MEDS ORDERED: ASPIRIN 325 MG TABLET PO ONE (23:00)
[2022-11-30] MEDS ORDERED: ONDANSETRON HCL 4 MG TABLET PO ONE (23:00)
[2022-12-01] MEDS ORDERED: IBUPROFEN 600 MG TABLET PO ONE
[2022-12-01] MEDS ORDERED: ACETAMINOPHEN 325 MG TABLET PO ONE
[2022-12-01 00:14] LABS: EOSINOPHILS % (AUTO) 0.8 % (1.0-6.0); HEMOGLOBIN 14.2 g/dL (13.5-17.5); LYMPHOCYTES # (AUTO) 2.1 K/uL (1.0-4.8)
[2022-12-01 00:15] LABS: ANION GAP 7 mmol/L (8-16); CALCIUM, TOTAL 9.9 mg/dL (8.8-10.5); CARBON DIOXIDE 27 mmol/L (22-29); CHLORIDE 101 mmol/L (98-107); CREATININE 1.32 mg/dL (0.60-1.30); GLOMERULAR FILTR. RATE CALC > 60 mL/min (>60); GLUCOSE,RANDOM 97 mg/dL (70-110); POTASSIUM 4.1 mmol/L (3.5-5.1); SODIUM SERUM 135 mmol/L (136-145); UREA NITROGEN, BLOOD 19 mg/dL (7-18)
[2022-12-01 00:21] LABS: ALANINE AMINOTRANSFERASE 23 U/L (12-78); ALBUMIN 4.4 g/dL (3.4-5.0); ALKALINE PHOSPHATASE 135 U/L (46-116); ASPARTATE AMINOTRANSFERASE 38 U/L (15-37); BILIRUBIN,TOTAL 0.5 mg/dL (0.1-1.0); TOTAL PROTEIN, SERUM 8.8 g/dL (6.4-8.2)
[2022-12-01 00:22] LABS: BASOPHILS % (AUTO) 0.5 % (0.0-2.0); HEMATOCRIT 41.4 % (41-53); LYMPHOCYTES % (AUTO) 21.5 % (22.0-44.0); MEAN CORPUSCULAR HEMOGLOBIN 27.9 pg (26.0-34.0); MEAN CORPUSCULAR HGB CONC 34.2 G/dL (31.0-37.0); MEAN CORPUSCULAR VOLUME 81 fL (80-100); MONOCYTES # (AUTO) 0.8 K/uL (0.1-1.0); MONOCYTES % (AUTO) 8.6 % (2.0-9.0); NEUTROPHILS # (AUTO) 6.6 K/uL (1.8-7.7); NEUTROPHILS % (AUTO) 68.6 % (40.0-70.0); PLATELET COUNT (AUTO) 272 K/uL (150-450); RED BLOOD CELL COUNT(AUTO) 5.09 MIL/uL (4.50-5.90); RED CELL DISTRIBUTION WIDTH 14.4 % (11.5-14.5)
[2022-12-01 03:21] VITALS: BP 126/83
== END 2022-12-01 03:36 ==
LOC: EMS 21:23
DX: R07.9 Chest pain, unspecified (principal); I48.91 Unspecified atrial fibrillation; F41.9 Anxiety disorder, unspecified; I10 Essential (primary) hypertension; F11.90 Opioid use, unspecified, uncomplicated; Z90.49 Acquired absence of other specified parts of digestive tract; Z98.890 Other specified postprocedural states; Z91.040 Latex allergy status; Z91.013 Allergy to seafood; Z88.8 Allergy status to other drugs, medicaments and biological substances
CPT/HCPCS: 99285; 71046; 80053; 83880; 84484; 85025; 85379; 36415; 93005; Q0162

== ENCOUNTER 2022-12-03 00:47 | Emergency (ER) | payer OTHER ==
[~2022-12-03] VITALS: Ht 182.9 cm; Wt 140.0 kg
[2022-12-03 01:57] LABS: BASOPHILS % (AUTO) 0.4 % (0.0-2.0); EOSINOPHILS % (AUTO) 1.7 % (1.0-6.0); HEMATOCRIT 39.2 % (41-53); HEMOGLOBIN 13.1 g/dL (13.5-17.5); LYMPHOCYTES # (AUTO) 1.6 K/uL (1.0-4.8); LYMPHOCYTES % (AUTO) 17.1 % (22.0-44.0); MEAN CORPUSCULAR HEMOGLOBIN 27.6 pg (26.0-34.0); MEAN CORPUSCULAR HGB CONC 33.4 G/dL (31.0-37.0); MEAN CORPUSCULAR VOLUME 83 fL (80-100); MONOCYTES # (AUTO) 0.9 K/uL (0.1-1.0); NEUTROPHILS # (AUTO) 6.9 K/uL (1.8-7.7); NEUTROPHILS % (AUTO) 71.8 % (40.0-70.0); PLATELET COUNT (AUTO) 260 K/uL (150-450); RED BLOOD CELL COUNT(AUTO) 4.74 MIL/uL (4.50-5.90); RED CELL DISTRIBUTION WIDTH 14.3 % (11.5-14.5)
[2022-12-03 02:07] LABS: ANION GAP 9 mmol/L (8-16); CALCIUM, TOTAL 9.4 mg/dL (8.8-10.5); CARBON DIOXIDE 29 mmol/L (22-29); CHLORIDE 108 mmol/L (98-107); CREATININE 1.11 mg/dL (0.60-1.30); GLOMERULAR FILTR. RATE CALC > 60 mL/min (>60); GLUCOSE,RANDOM 123 mg/dL (70-110); POTASSIUM 4.1 mmol/L (3.5-5.1); SODIUM SERUM 146 mmol/L (136-145); UREA NITROGEN, BLOOD 13 mg/dL (7-18)
[2022-12-03 02:17] LABS: ALANINE AMINOTRANSFERASE 22 U/L (12-78); ALKALINE PHOSPHATASE 104 U/L (46-116); ASPARTATE AMINOTRANSFERASE 44 U/L (15-37); B-TYPE NATRIURETIC PEPTIDE < 5 pg/mL (0-100); BILIRUBIN,TOTAL 0.4 mg/dL (0.1-1.0); CREATINE KINASE, TOTAL ONLY 566 U/L (39-308)
[2022-12-03 04:21] LABS: COVID AG,FIA SOURCE NASAL SWAB
[2022-12-03 12:15] VITALS: BP 132/85
== END 2022-12-03 20:35 | disposition home or self-care (01) ==
LOC: EMS 00:49
DX: R55 Syncope and collapse (principal); I48.91 Unspecified atrial fibrillation; F41.9 Anxiety disorder, unspecified; I10 Essential (primary) hypertension; I25.2 Old myocardial infarction; F11.90 Opioid use, unspecified, uncomplicated; Z87.442 Personal history of urinary calculi; Z90.49 Acquired absence of other specified parts of digestive tract; Z88.1 Allergy status to other antibiotic agents; Z88.4 Allergy status to anesthetic agent; Z91.040 Latex allergy status; Z91.013 Allergy to seafood; Z20.822 Contact with and (suspected) exposure to COVID-19
CPT/HCPCS: 51702; 71045; 80053; 82550; 83880; 84484; 85025; 93005; 99285

== ENCOUNTER 2022-12-04 16:22 | Emergency (ER) | payer OTHER ==
[~2022-12-04] VITALS: Ht 182.9 cm; Wt 140.0 kg
[2022-12-04 20:33] VITALS: BP 133/90
== END 2022-12-04 20:51 | disposition home or self-care (01) ==
LOC: EMS 16:23
DX: I48.91 Unspecified atrial fibrillation (principal); F41.9 Anxiety disorder, unspecified; I10 Essential (primary) hypertension; I25.2 Old myocardial infarction; Z87.442 Personal history of urinary calculi; F11.90 Opioid use, unspecified, uncomplicated; Z90.49 Acquired absence of other specified parts of digestive tract; Z76.5 Malingerer [conscious simulation]; Z91.199 Patient's noncompliance with other medical treatment and regimen due to unspecified reason; Z88.1 Allergy status to other antibiotic agents; Z88.4 Allergy status to anesthetic agent; Z91.040 Latex allergy status; Z91.013 Allergy to seafood
CPT/HCPCS: 51702; 99284

== ENCOUNTER 2023-01-04 19:43 | Emergency (ER) | payer OTHER ==
[~2023-01-04] VITALS: Ht 185.4 cm; Wt 129.6 kg
[2023-01-04 21:14] VITALS: BP 134/78
== END 2023-01-04 22:17 | disposition home or self-care (01) ==
LOC: EMS 19:47
DX: R33.9 Retention of urine, unspecified (principal); I48.91 Unspecified atrial fibrillation; F41.9 Anxiety disorder, unspecified; I10 Essential (primary) hypertension; Z90.49 Acquired absence of other specified parts of digestive tract; Z98.890 Other specified postprocedural states; Z91.040 Latex allergy status; Z88.8 Allergy status to other drugs, medicaments and biological substances; Z88.4 Allergy status to anesthetic agent; Z91.013 Allergy to seafood
CPT/HCPCS: 51702; 99284; Z7502